=== PATIENT | female | born 1970 | race Caucasian/White ===

== ENCOUNTER → 2017-07-02 22:19 | Outpatient (CLI) | payer MEDICAID, SELFPAY ==
[2017-07-06 06:42] LABS: HPV Reflexed? NOT INDICATED
== END ==
PROVIDERS: Visit Provider Family Medicine
DX: Z01.419 Encounter for gynecological examination (general) (routine) without abnormal findings (principal)
CPT/HCPCS: 88175; G0145

== ENCOUNTER 2017-08-15 08:08 | Observation (INO) | payer MEDICAID, SELFPAY ==
[2017-08-15] VITALS (12 sets, daily range): BP systolic 108–177; BP diastolic 67–111; PULSE 68–96; RESP 12–17; TEMP 36.2–37; O2SAT 95–100; BMI 32.8; BMI 32.4; BMI 32.9
--- NOTE | 2017-08-15 08:20 | RAD_ITS ---
STUDY: X-RAY CHEST REASON FOR EXAM: Female, 47 years old. Chest pain and blurred vision. TECHNIQUE: AP upright portable view. COMPARISON: 04/21/2015. FINDINGS: The lungs are clear and expanded. There is no demonstrated pleural abnormality. Normal size heart. Normal mediastinum and tremayne. Normal visualized pulmonary arteries. Normal visualized aortic arch and descending thoracic aorta. Mild dextroscoliosis of the thoracic spine. Chondroid calcifications in the intramedullary portion of the left proximal humerus are unchanged. This was suggested previously as benign enchondroma. The clavicles, both shoulders and rib cage are within normal limits. There is no demonstrated abnormality of the visualized soft tissue structures of the upper abdomen. RAD/Chest 1 View (Portable) IMPRESSION: 1. Normal x-ray examination of the chest. 2. Probable benign enchondroma in the left proximal humerus. 3. No significant interval changes when compared to 04/21/2015. Electronically Signed: Sid Gómez MD at 8:45 EDT , Service support ,
--- NOTE | 2017-08-15 08:22 | CT_ITS ---
STUDY: CT BRAIN WITHOUT CONTRAST REASON FOR EXAM: Female, 47 years old. Dizziness and blurred vision. RADIATION DOSAGE (If Supplied By Facility): CTDIvol = ( 44.99 ) mGy, DLP = ( 745.49 ) mGycm TECHNIQUE: Transaxial CT imaging of the brain was performed without administration of intravenous contrast material. Coronal and sagittal reconstructions were also performed. Individualized dose optimization techniques were used for this CT. COMPARISON: None. FINDINGS: Normal soft tissue structures. Normal calvarium. Normal size ventricles and extra-axial spaces for the patient's age. Normal white matter tracts of the cerebral hemispheres. Normal basal ganglia and thalami. Normal brainstem. Normal cerebellum. There is no intracranial hemorrhage. There are no findings of an acute ischemic infarction. Normal visualized paranasal sinuses. CT/Brain/Head without Contrast IMPRESSION: Normal unenhanced CT scan of the brain. Electronically Signed: Sid Gómez MD at 9:32 EDT , Service support ,
--- NOTE | 2017-08-15 08:22 | EKG12_ITS ---
Test Reason : CHEST PAIN Blood Pressure : / mmHG Vent. Rate : 087 BPM Atrial Rate : 087 BPM P-R Int : 150 ms QRS Dur : 082 ms QT Int : 368 ms P-R-T Axes : 040 008 015 degrees QTc Int : 442 ms Normal sinus rhythm Normal ECG Confirmed by SPENCER GUTIERRES ([id number]), editor managing director GOPI RUSSO ([id number] on 08/19/2017 4:06:43 PM Referred By: Confirmed By:SPENCER GUTIERRES
[2017-08-15] MEDS: Aspirin 81 MG TAB.CHEW 324 MG PO (08:41)
[2017-08-15] MEDS: 0.9% Normal Saline 1,000 ML 150 ML IV (08:42)
[2017-08-15 08:55] LABS: Absolute Lymphocyte Count 2.39 X10^3/ul (0.83-4.51); Absolute Neutrophil Count 4.4 X10^3/uL (2.0-7.7); Basophil# 0.03 X10^3/uL; Basophil% 0.4 % (0-1); Eosinophil# 0.15 X10^3/uL; Hematocrit 42.4 % (37-47); Hemoglobin 14.3 g/dl (12.0-15.0); Lymphocyte # 2.39 X10^3/ul (4.0); Lymphocyte % 32.2 % (19-41); Mean Corp Hgb Conc 33.7 g/gl (32-36); Mean Corpuscular Hgb 31.5 pg (27.0-32.0); Mean Corpuscular Volume 93.4 fL (81-99); Mean Platelet Vol. 9.4 fl (6.2-12.0); Monocyte% 5.4 % (0-10); Neutrophil # 4.43 X10^3/uL (2.7-7.7); Neutrophil % 59.7 % (47-70); Platelet Count 244 K/mm3 (150-450); RBC Distribution Width CV 12.1 % (11.6-14.6); RBC Distribution Width SD 40.8 fl (35.1-43.9); Red Blood Count 4.54 M/mm3 (4.2-5.4); White Blood Count 7.4 K/mm3 (4.4-11.0)
[2017-08-15 09:08] LABS: POSITIVE COUNT NO; POSITIVE DIFFERENTIAL NO; POSITIVE MORPHOLOGY NO
[2017-08-15 09:16] LABS: Anion Gap 11 (5-15); BUN 13 mg/dL (7-18); BUN/Creat Ratio 16.4 RATIO (10-20); Calcium,Total 9.3 mg/dL (8.5-10.1); Chloride 107 mmol/L (98-107); Creatinine, Serum 0.79 mg/dL (0.55-1.02); EST Glomerular Filtration Rate 82 mL/min (>60); Est Glom Filt Rate - Afr Amer 99 mL/min (>60); Estimated Creatinine Clearance 68.88 ml/min; Glucose 101 mg/dL (74-106); Potassium 3.4 mmol/L (3.5-5.1); Sodium Level 142 mmol/L (136-145)
--- NOTE | 2017-08-15 09:59 | PCM.HP.STD ---
Problem List (1) Chronic neck pain Status: Chronic (2) HLD (hyperlipidemia) Status: Chronic Qualifiers: Hyperlipidemia type: unspecified Qualified Code(s): E78.5 - Hyperlipidemia, unspecified (3) Anxiety and depression Status: Chronic (4) Obesity (BMI 30.0-34.9) Status: Chronic (5) Tobacco use Status: Chronic (6) Chest pain Status: Acute Qualifiers: Chest pain type: unspecified Qualified Code(s): R07.9 - Chest pain, unspecified (7) TIA (transient ischemic attack) Status: Acute Qualifiers: Transient cerebral ischemia type: unspecified Qualified Code(s): G45.9 - Transient cerebral ischemic attack, unspecified History of Present Illness Date of Admission: 08/15/17 Chief Complaint: Chest Pain, Vision Changes, RLE weakness The patient is a 47 y/o F w/ PMHx: Chronic back pain s/p cervical surgery w/ herniated disc, Obesity, Anxiety and Depression, HLD, Tobacco Use who presents to the [facility] ED on 08/15/17 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 In the ED she initially noted mild RLE heaviness but this resolved following admission. She noted not having eaten for several hours with mild headache but otherwise noted feeling improved. She did note with onset of the vision changes she became extremely anxious and is not sure if the symptoms following were possible secondary to her anxiety. In the ED NIH 0. 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 In the emergency room patient administered aspirin 324 mg p.o. ?1. Past Medical History Past Medical History (Chronic Problems): Chronic Problems Chronic neck pain (Chronic) HLD (hyperlipidemia) (Chronic) Anxiety and depression (Chronic) Obesity (BMI 30.0-34.9) (Chronic) Tobacco use (Chronic) Allergies No Known Allergies Allergy (Verified 08/15/17 08:14) Home Medications: Ambulatory Orders Medication Instructions Recorded Sertraline HCl [Zoloft] 50 mg PO DAILY 08/15/17 busPIRone [Buspar] 7.5 mg PO BID 08/15/17 Surgical History: - - Bilateral tubal ligation, tonsillectomy, cervical fusion with hardware. 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 Smoking Status: Current every day smoker Tobacco Use: Cigarettes - One half pack per day tobacco usage. Alcohol: None Drugs: None - *Family History Maternal History Items: - - Patient notes a maternal family history of cancer, unclear type, notes it was rare. Mother also had a history of peptic versus gastric ulcer disease with secondary to hemorrhage. Paternal History Items: - - Father with a history of chronic COPD with tobacco use. Review of Systems Constitutional: Reports: Fatigue. Denies: Chills, Fever, Weight Change HEENT: Denies: Head Aches, Sinus Congestion, Sinus Drainage Cardiovascular: Reports: Chest Pain, Chest Pressure, Light Headedness. Denies: Heaviness, Orthopnea, Palpitations, Syncope Respiratory: Reports: Shortness of Breath. Denies: Cough, Shortness of breath at rest, Sputum production Gastrointestinal: Denies: Abdominal Pain, Nausea, Vomiting Genitourinary: Denies: Dysuria Musculoskeletal: Denies: Joint Pain, Joint Tenderness Skin: Denies: Rash, Wounds Neurological: Reports: Focal weakness, Numbness, Tingling Psychiatric: Reports: Anxiety, Depression. Denies: Homicidal Ideations, Suicidal Ideations Hematologic/ Lymphatic: Denies: Easy Bruising, Easy Bleeding VTE Information - Inpt Only VTE Present on Admission: No VTE Mechan Device Prophylaxis: SCD's VTE Pharm Prophylaxis ordered?: Yes Patient Problems: Active and Suspected Problems Chest pain (Acute) TIA (transient ischemic attack) (Acute) Subjective: Patient seated upright in the bed, no acute distress, notes symptoms continue to remain resolved. Objective: Physical Examination: General: awake, alert, oriented x 3 and cooperative, seated upright in bed in no apparent distress. Skin: normal color, turgor, no icterus, cyanosis. HEENT: AT/NC, EOMI, PERRLA, MMM, no carotid bruits or JVD noted, thyroid appropriate size, no fullness. Lungs: CTA bilaterally, moderate effort, mild decrease BL bases, no rales, ronchi or wheezing. Heart: Regular rate and rhythm; no gallop, rub audible. Abdomen: soft, obese, NTTP, ND, normal BS, no HSM. Extremities: no cyanosis, clubbing, or edema. Neurological: patient awake, alert, oriented x 3; cognitive function intact; pupils equally reactive to light and accomodation; cranial nerves II-XII grossly normal, moving all 4 extremities, no focal deficits, strength preserved, FTN, HTN intact, negative babinski, sensation intact, all thompson of vision intact. Psychiatric: affect appears normal, no acute evidence of depressive or anxiety feelings. - Physical Exam Vital Signs Temp Pulse Resp BP Pulse Ox 97.1 F L 71 17 120/86 H 100 08/15/17 08:09 08/15/17 09:25 08/15/17 09:25 08/15/17 09:25 08/15/17 09:25 Oxygen Flow Rate (L/min) 2 Oxygen Delivery Method Nasal Cannula Weight: 179 lb 14.355 oz Body Mass Index (BMI) 32.8 Laboratory Tests Past 24 Hrs 08/15/17 08/15/17 08:35 08:35 WBC 7.4 RBC 4.54 Hgb 14.3 Hct 42.4 MCV 93.4 MCH 31.5 MCHC 33.7 RDW 12.1 RDW Differential 40.8 Plt Count 244 MPV 9.4 Immature Gran % (Auto) 0.300 Neut % (Auto) 59.7 Lymph % (Auto) 32.2 [place] % (Auto) 5.4 Eos % (Auto) 2.0 Baso % (Auto) 0.4 Absolute Neuts (auto) 4.4 Absolute Lymphs (auto) 2.39 Total Counted Not Reportable Sodium 142 Potassium 3.4 L Chloride 107 Carbon Dioxide 24.0 Anion Gap 11 BUN 13 Creatinine 0.79 Estim Creat Clear Calc 68.88 Est GFR (MDRD) Af Amer 99 Est GFR (MDRD) Non-Af 82 BUN/Creatinine Ratio 16.4 Glucose 101 Calcium 9.3 Troponin I < 0.02 Assessment/Plan Active and Suspected Problems Chest pain (Acute) TIA (transient ischemic attack) (Acute) The patient is a 47 y/o F w/ PMHx: Chronic back pain s/p cervical surgery w/ herniated disc, Obesity, Anxiety and Depression, HLD, Tobacco Use who presents to the [facility] ED on 08/15/17 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 (1) Vision Changes, RLE Weakness, Paresthesias, Resolved secondary to ? TIA: Very atypical presentation, several complaints. ED evaluation unremarkable. Will admit to PCU, will obtain MRI Brain, MRA Head and Neck, ECHO, PT/OT/Speech/Nutrition evaluation per protocol. BP normal upon ED presentation with no HTN Hx, continue to monitor, maintain on asa, add statin w/ AM FLP, fall precautions. TSH, Mag pending. (2) Chest Pain: EKG in ED sinus rhythm with no acute evidence of ischemia, CXR w/ no acute findings, initial trop normal ?1. Will maintain on a monitored bed to assure no acute myocardial infarction with serial cardiac enzymes and EKGs. If MRI/MRA as noted unremarkable and cardiac enzymes remain unremarkable will pursue a.m. echo stress testing. FLP in AM. Mag pending. ASA, NG, morphine. (3) Hypokalemia: Admission K+ 3.4, supplementation given, repeat level in AM. (4) Tobacco Abuse: Encouraged cessation, inpatient consultation per RT, NR if desired. (5) Anxiety and depression: Maintain on home BuSpar and Zoloft regimen. Encourage outpatient psychiatry continued evaluation. (6) Chronic back pain s/p cervical surgery w/ herniated disc: Stable. (7) Obesity: Weight loss and lifestyle changes encouraged. (8) DVT Prophylaxis: SCDs, lovenox. Code Visit OBSV E&M: 16261 Observation care discharge
--- NOTE | 2017-08-15 10:12 | ED.DCSUM_ITS ---
- ER Visit Summary Date of Service: 08/15/17 Chief Complaint: [Chest pain] History of Present Illness: The patient is a 47 F [presents to the emergency department with multiple complaints this morning. 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 Patient became hot and sweaty and became very short of breath. Patient does develop some chest discomfort that she has a hard time describing. Patient states the blurry vision resolved after about 20 minutes. Patient does complain of a little bit of a headache now. Patient does not have a history of migraines. Patient also states that her right leg feels somewhat heavy since all this started. Patient still able to ambulate. Patient denies any speech difficulty. Patient has a history of anxiety, high cholesterol, and she is a smoker.] Physical Examination: [Vital signs-blood pressure 177/111, temperature 97.1, heart rate 95, respirations 15, pulse ox 95% on room air HEENT-PERRLA, EOMI. Cranial nerves II through XII grossly intact. TMs clear. Mucous membranes moist. No adenopathy. Cardiovascular-regular rate and rhythm without murmur or ectopy Lungs-clear to auscultation, chest wall stable without crepitus or subcu emphysema Abdomen-normoactive bowel sounds, soft, nontender, no rebound or rigidity, no peritoneal signs. Neuro [id number] and heel rider testing within normal limits, negative Romberg, negative for drift, fundi benign, NIH stroke scale is 0 Extremities-intact ?4, normal range of motion, normal pulses, atraumatic] Test Results: [EKG obtained on arrival shows sinus rhythm with a ventricular rate of 87 bpm. CBC with differential was normal. Chemistry is unremarkable. Troponin was less than 0.02. Chest x-ray showed nothing acute other than a benign enchondroma of the left humerus. CT scan of the brain without contrast was normal.] Emergency Department Course and Treatment: Patient received aspirin in the emergency department] Treatment Plan: [Admit for further workup and evaluation] Disposition: [Admit] Impression: [Chest pain Right leg weakness Left eye visual changes-resolved] This note was generated with [employer]ummelkiste[employer] software. It may contain incorrect words, spelling, and punctuation that were not noted in review of the chart prior to signing ED Disposition - Plan for ED Patient: Chief Complaint: Chest Pain Referrals: Mateo Jimenez MD [Primary Care Provider] -
--- NOTE | 2017-08-15 10:13 | HP.PCM_ITS ---
Problem List (1) Chronic neck pain Status: Chronic (2) HLD (hyperlipidemia) Status: Chronic Qualifiers: Hyperlipidemia type: unspecified Qualified Code(s): E78.5 - Hyperlipidemia , unspecified (3) Anxiety and depression Status: Chronic (4) Obesity (BMI 30.0-34.9) Status: Chronic (5) Tobacco use Status: Chronic (6) Chest pain Status: Acute Qualifiers: Chest pain type: unspecified Qualified Code(s): R07.9 - Chest pain, unspecified (7) TIA (transient ischemic attack) Status: Acute Qualifiers: Transient cerebral ischemia type: unspecified Qualified Code(s): G45.9 - Transient cerebral ischemic attack, unspecified History of Present Illness Date of Admission: 08/15/17 Chief Complaint: Chest Pain, Vision Changes, RLE weakness The patient is a 47 y/o F w/ PMHx: Chronic back pain s/p cervical surgery w/ herniated disc, Obesity, Anxiety and Depression, HLD, Tobacco Use who presents to the [facility] ED on 08/15/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 In the ED she initially noted mild RLE heaviness but this resolved following admission. She noted not having eaten for several hours with mild headache but otherwise noted feeling improved. She did note with onset of the vision changes she became extremely anxious and is not sure if the symptoms following were possible secondary to her anxiety. In the ED NIH 0. 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 In the emergency room patient administered aspirin 324 mg p.o. ?1. Past Medical History Past Medical History (Chronic Problems): Chronic Problems Chronic neck pain (Chronic) HLD (hyperlipidemia) (Chronic) Anxiety and depression (Chronic) Obesity (BMI 30.0-34.9) (Chronic) Tobacco use (Chronic) Allergies No Known Allergies Allergy (Verified 08/15/17 08:14) Home Medications: Ambulatory Orders Medication Instructions Recorded Sertraline HCl [Zoloft] 50 mg PO DAILY 08/15/17 busPIRone [Buspar] 7.5 mg PO BID 08/15/17 Surgical History: - - Bilateral tubal ligation, tonsillectomy, cervical fusion with hardware. 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 Smoking Status: Current every day smoker Tobacco Use: Cigarettes - One half pack per day tobacco usage. Alcohol: None Drugs: None - *Family History Maternal History Items: - - Patient notes a maternal family history of cancer, unclear type, notes it was rare. Mother also had a history of peptic versus gastric ulcer disease with secondary to hemorrhage. Paternal History Items: - - Father with a history of chronic COPD with tobacco use. Review of Systems Constitutional: Reports: Fatigue. Denies: Chills, Fever, Weight Change HEENT: Denies: Head Aches, Sinus Congestion, Sinus Drainage Cardiovascular: Reports: Chest Pain, Chest Pressure, Light Headedness. Denies: Heaviness, Orthopnea, Palpitations, Syncope Respiratory: Reports: Shortness of Breath. Denies: Cough, Shortness of breath at rest, Sputum production Gastrointestinal: Denies: Abdominal Pain, Nausea, Vomiting Genitourinary: Denies: Dysuria Musculoskeletal: Denies: Joint Pain, Joint Tenderness Skin: Denies: Rash, Wounds Neurological: Reports: Focal weakness, Numbness, Tingling Psychiatric: Reports: Anxiety, Depression. Denies: Homicidal Ideations, Suicidal Ideations Hematologic/ Lymphatic: Denies: Easy Bruising, Easy Bleeding VTE Information - Inpt Only VTE Present on Admission: No VTE Mechan Device Prophylaxis: SCD's VTE Pharm Prophylaxis ordered?: Yes Patient Problems: Active and Suspected Problems Chest pain (Acute) TIA (transient ischemic attack) (Acute) Subjective: Patient seated upright in the bed, no acute distress, notes symptoms continue to remain resolved. Objective: Physical Examination: General: awake, alert, oriented x 3 and cooperative, seated upright in bed in no apparent distress. Skin: normal color, turgor, no icterus, cyanosis. HEENT: AT/NC, EOMI, PERRLA, MMM, no carotid bruits or JVD noted, thyroid appropriate size, no fullness. Lungs: CTA bilaterally, moderate effort, mild decrease BL bases, no rales, ronchi or wheezing. Heart: Regular rate and rhythm; no gallop, rub audible. Abdomen: soft, obese, NTTP, ND, normal BS, no HSM. Extremities: no cyanosis, clubbing, or edema. Neurological: patient awake, alert, oriented x 3; cognitive function intact; pupils equally reactive to light and accomodation; cranial nerves II-XII grossly normal, moving all 4 extremities, no focal deficits, strength preserved , FTN, HTN intact, negative babinski, sensation intact, all thompson of vision intact. Psychiatric: affect appears normal, no acute evidence of depressive or anxiety feelings. - Physical Exam Vital Signs Temp Pulse Resp BP Pulse Ox 97.1 F L 71 17 120/86 H 100 08/15/17 08:09 08/15/17 09:25 08/15/17 09:25 08/15/17 09:25 08/15/17 09:25 Oxygen Flow Rate (L/min) 2 Oxygen Delivery Method Nasal Cannula Weight: 179 lb 14.355 oz Body Mass Index (BMI) 32.8 Laboratory Tests Past 24 Hrs 08/15/17 08/15/17 08:35 08:35 WBC 7.4 RBC 4.54 Hgb 14.3 Hct 42.4 MCV 93.4 MCH 31.5 MCHC 33.7 RDW 12.1 RDW Differential 40.8 Plt Count 244 MPV 9.4 Immature Gran % (Auto) 0.300 Neut % (Auto) 59.7 Lymph % (Auto) 32.2 [place] % (Auto) 5.4 Eos % (Auto) 2.0 Baso % (Auto) 0.4 Absolute Neuts (auto) 4.4 Absolute Lymphs (auto) 2.39 Total Counted Not Reportable Sodium 142 Potassium 3.4 L Chloride 107 Carbon Dioxide 24.0 Anion Gap 11 BUN 13 Creatinine 0.79 Estim Creat Clear Calc 68.88 Est GFR (MDRD) Af Amer 99 Est GFR (MDRD) Non-Af 82 BUN/Creatinine Ratio 16.4 Glucose 101 Calcium 9.3 Troponin I < 0.02 Assessment/Plan Active and Suspected Problems Chest pain (Acute) TIA (transient ischemic attack) (Acute) The patient is a 47 y/o F w/ PMHx: Chronic back pain s/p cervical surgery w/ herniated disc, Obesity, Anxiety and Depression, HLD, Tobacco Use who presents to the [facility] ED on 08/15/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 (1) Vision Changes, RLE Weakness, Paresthesias, Resolved secondary to ? TIA: Very atypical presentation, several complaints. ED evaluation unremarkable. Will admit to PCU, will obtain MRI Brain, MRA Head and Neck, ECHO, PT/OT/Speech/ Nutrition evaluation per protocol. BP normal upon ED presentation with no HTN Hx , continue to monitor, maintain on asa, add statin w/ AM FLP, fall precautions. TSH, Mag pending. (2) Chest Pain: EKG in ED sinus rhythm with no acute evidence of ischemia, CXR w / no acute findings, initial trop normal ?1. Will maintain on a monitored bed to assure no acute myocardial infarction with serial cardiac enzymes and EKGs. If MRI/MRA as noted unremarkable and cardiac enzymes remain unremarkable will pursue a.m. echo stress testing. FLP in AM. Mag pending. ASA, NG, morphine. (3) Hypokalemia: Admission K+ 3.4, supplementation given, repeat level in AM. (4) Tobacco Abuse: Encouraged cessation, inpatient consultation per RT, NR if desired. (5) Anxiety and depression: Maintain on home BuSpar and Zoloft regimen. Encourage outpatient psychiatry continued evaluation. (6) Chronic back pain s/p cervical surgery w/ herniated disc: Stable. (7) Obesity: Weight loss and lifestyle changes encouraged. (8) DVT Prophylaxis: SCDs, lovenox. Code Visit OBSV E&M: 70766 Observation care discharge
--- NOTE | 2017-08-15 12:45 | MRI_ITS ---
STUDY: MRA OF THE HEAD WITHOUT CONTRAST REASON FOR EXAM: Female, 47 years old. Dizziness. TECHNIQUE: 3-D [id number] (TOF) imaging was performed with MIPs. The study was performed unenhanced. COMPARISON: None. FINDINGS: Normal bilateral petrous carotid arteries. Normal right cavernous carotid artery with a normal supraclinoid bifurcation. Normal left cavernous carotid artery with a normal supraclinoid bifurcation. Normal right A1 segments of the anterior cerebral artery. Normal left A1 segments of the anterior cerebral artery. Normal intact anterior communicating artery (ACOM). Normal bilateral A2 segments of the anterior cerebral arteries. Normal right M1 and M2 segments of the middle cerebral arteries, with a normal M1 bifurcation. Normal left M1 and M2 segments of the middle cerebral arteries, with a normal M1 bifurcation. Normal right posterior communicating artery (PCOM). Normal left posterior communicating artery (PCOM). Normal bilateral vertebral arteries. Normal basilar artery with a normal basilar bifurcation. The visualized bilateral superior cerebellar (SCA) arteries are normal. Normal bilateral P1, P2 and visualized P3 segments of the posterior cerebral arteries. There is no demonstrated aneurysm of the ione of Javed. There is no major vessel occlusion or hemodynamically significant stenosis. There is no demonstrated abnormality of the visualized brain. MRI/MRA Head ONLY without Contrast IMPRESSION: Normal MRA of the head Electronically Signed: Feliciano Torres MD at 17:01 EDT , Service support ,
--- NOTE | 2017-08-15 12:45 | MRI_ITS ---
STUDY: MRI BRAIN WITHOUT CONTRAST REASON FOR EXAM: Female, 47 years old. Left-sided blurred vision and dizziness. TECHNIQUE: Standardized multiplanar fat and water weighted pulse sequences were obtained. COMPARISON: None. FINDINGS: No evidence for shift of midline structures, mass effect or compression of the ventricles noted. No acute intra or extra-axial hemorrhage is seen. No abnormal intracranial fluid collections identified. No evidence for cerebellar tonsillar herniation. Pituitary stalk and gland are within normal limits. Optic chiasm are within normal limits. Corpus callosum is within normal limits. No evidence for acute or subacute ischemic insult. No definite evidence for restricted diffusion. Mild mucosal thickening of the ethmoid air cells and the maxillary sinuses. Skull base vascular flow voids are patent. The ventricular system appears unremarkable. Cortical sulci and gyri are within normal limits. Slight asymmetric prominence of the left Meckel's cave noted. Few scattered foci of T2/FLAIR hyperintensity noted in the periventricular and subcortical white matter which are nonspecific in imaging appearance however differential considerations include inflammatory or demyelinating process. Other differential possibilities include migraine-related changes. Postcontrast MR imaging of the brain is suggested. Visualized orbital contents demonstrate no discrete mass. Patient motion artifact somewhat reduces sensitivity of the exam. Extracranial soft tissue structures are essentially within normal limits. IMPRESSION: No evidence for acute or subacute ischemic insult. No evidence for intracranial mass or acute hemorrhage. Few scattered foci of T2/FLAIR hyperintensity noted in the periventricular and subcortical white matter which are nonspecific in imaging appearance however differential considerations include inflammatory or demyelinating process. Other differential possibilities include migraine-related changes. Postcontrast MR imaging of the brain is suggested for further assessment. Electronically Signed: Dewey Dela Cruz, at 21:00 EDT Tel , Service support , MRI/Brain without Contrast
--- NOTE | 2017-08-15 12:45 | MRI_ITS ---
STUDY: MRA NECK WITHOUT CONTRAST REASON FOR EXAM: Female, 47 years old. Blurred vision. Dizziness. TECHNIQUE: Source images were obtained, MIPs were performed. The study was performed unenhanced. COMPARISON: None. FINDINGS: RIGHT CAROTID ARTERIES: Normal right common carotid artery (CCA). Normal right common carotid bulb. Normal origin of the right internal carotid (ICA) artery without a hemodynamically significant stenosis. Normal visualized cervical portion of the right internal carotid artery. Normal origin of the right external carotid artery (ECA). LEFT CAROTID ARTERIES: Normal left common carotid artery (CCA). Normal left common carotid bulb. Normal origin of the left internal carotid (ICA) artery without a hemodynamically significant stenosis. Normal visualized cervical portion of the left internal carotid artery. Normal origin of the left external carotid artery (ECA). VERTEBRAL ARTERIES: Normal antegrade flow within the bilateral vertebral artery without a hemodynamically significant stenosis. MRI/MRA Neck without Contrast IMPRESSION: Normal bilateral cervical carotid and vertebral arteries. Electronically Signed: Feliciano Torres MD at 16:55 EDT , Service support ,
[2017-08-15 13:21] LABS: Magnesium 1.8 mg/dL (1.6-2.6)
[2017-08-15] MEDS: busPIRone 15 MG TABLET 7.5 MG PO (21:43)
[2017-08-15] MEDS: Famotidine 20 MG Tablet PO (21:43)
[2017-08-16] VITALS (8 sets, daily range): BP systolic 110–127; BP diastolic 70–86; PULSE 66–86; RESP 14–16; TEMP 36.3–36.8; O2SAT 94–99
[2017-08-16] MEDS: Aspirin 81 MG TAB.CHEW PO (05:30)
--- NOTE | 2017-08-16 05:55 | EKG12_ITS ---
Test Reason : AM EKG Blood Pressure : / mmHG Vent. Rate : 064 BPM Atrial Rate : 064 BPM P-R Int : 168 ms QRS Dur : 074 ms QT Int : 428 ms P-R-T Axes : 045 039 031 degrees QTc Int : 441 ms Normal sinus rhythm Normal ECG When compared with ECG of 21-APR-2015 12:32, Nonspecific T wave abnormality has replaced inverted T waves in Inferior leads Nonspecific T wave abnormality, improved in Anterior leads Confirmed by LYUDMILA CAMPBELL, MAXIMILIANO ([id number]), restaurant expeditor GOPI RUSSO ([id number]) on 08/22/2017 3:48:47 PM Referred By: SABI Confirmed By:MAXIMILIANO COREAS MD
--- NOTE | 2017-08-16 05:55 | STEWCON_ITS ---
Version 2 Stress Results Maximum Predicted HR: 172 bpm Target HR: 146 bpm % Maximum Predicted HR: 88 % DurationHeart Rate Stage (mm:ss) (bpm) BP I 3:00 13 7 158/62 II 2:50 15 1 168/88 Recovery 2:50 83 152/62 Recovery 4:50 80 124/76 Stress Duration: 13:30 mm:ss Maximum Stress HR: 151 bpm Baseline Echocardiogram Findings The estimated ejection fraction is 65 %. Stress Echo Wall motion Data Resting WMIntermediate WMStress WM Resting Wall Motion Wall Motion Stress No regional wall motion No regional wall motion abnormalities noted. abnormalities noted. EKG Data Normal intervals are noted. The patient exercised according to the regular Júnior protocol for a total duration of 6:26. The maximum heart rate attained was 157 beats per minute. This was 91% of maximum predicted heart rate. The patient exercised into stage 3 of the Júnior protocol. During stress, there were no ST or T wave changes noted to suggest ischemia. Interpretation Summary The estimated ejection fraction is 65 %. Normal adequate treadmill echocardiogram. Negative for ischemia by EKG and echocardiographic criteria. No anginal symptoms noted. No arrhythmias noted. Appropriate blood pressure response to exercise. Average exercise capacity for age. Test terminated due to leg discomfort. Decreased sensitivity due to poor echo windows requiring Definity enhancement. No complications. Final LVEF=75%. Ordering Physician: Ivy Pratt Eeferring Physician: Mateo Jimenez
[2017-08-16 06:13] LABS: Hematocrit 39.3 % (37-47); Hemoglobin 13.1 g/dl (12.0-15.0); Mean Corp Hgb Conc 33.3 g/gl (32-36); Mean Corpuscular Hgb 31.5 pg (27.0-32.0); Mean Corpuscular Volume 94.5 fL (81-99); Mean Platelet Vol. 9.7 fl (6.2-12.0); Platelet Count 217 K/mm3 (150-450); RBC Distribution Width SD 40.9 fl (35.1-43.9); Red Blood Count 4.16 M/mm3 (4.2-5.4); White Blood Count 7.8 K/mm3 (4.4-11.0)
[2017-08-16 06:14] LABS: Scan Indicated on CBC? Y/N NO
[2017-08-16 06:19] LABS: International Normalized Ratio 0.9; Prothrombin Time (Protime)PT. 12.2 SECONDS (11.7-14.9)
[2017-08-16 06:20] LABS: Partial Thromboplast Time 30.2 Seconds (24.1-36.2)
[2017-08-16 06:27] LABS: Anion Gap 8 (5-15); BUN 14 mg/dL (7-18); BUN/Creat Ratio 21.1 RATIO (10-20); Calcium,Total 8.8 mg/dL (8.5-10.1); Chloride 109 mmol/L (98-107); Cholesterol 243 mg/dL (200); Creatinine, Serum 0.66 mg/dL (0.55-1.02); EST Glomerular Filtration Rate 101 mL/min (>60); Est Glom Filt Rate - Afr Amer 122 mL/min (>60); Estimated Creatinine Clearance 82.45 ml/min; Glucose 90 mg/dL (74-106); High Density Lipoprotein 47 mg/dL; Potassium 4.1 mmol/L (3.5-5.1); Sodium Level 142 mmol/L (136-145); Triglycerides 229 mg/dL; Very Low Density Lipoprotein 46 mg/dL (5-40)
[2017-08-16] MEDS: Atorvastatin Calcium 80 MG Tablet PO (10:17)
[2017-08-16] MEDS: busPIRone 15 MG TABLET 7.5 MG PO (10:17)
[2017-08-16] MEDS: Sertraline 50 MG Tablet PO (10:18)
[2017-08-16] MEDS: Famotidine 20 MG Tablet PO (10:18)
--- NOTE | 2017-08-16 11:58 | PCM.DC ---
- Discharge Diagnoses Current Active Problems: Current Active and Chronic Problems (1) Vision Changes, RLE Weakness/Paresthesias, Resolved secondary to Possible TIA (2) Non-specific MRI Brain scattered foci hyperintensity in the periventricular and subcortical white matter, Unclear Specific Etiology (follow-up MRI Brain w/ Contrast without enhancement) (3) Chest Pain, Non-cardiac, Unclear Specific Etiology, Possibly Anxiety associated (4) Hypokalemia (5) Tobacco Abuse (6) Anxiety and depression (7) Chronic back pain s/p cervical surgery w/ herniated disc: Stable. (8) Obesity You will use the following diet at home:: Cardiac Your food should be the consistency of: Regular Your liquids should be the consistency of: Regular/Thin Discharge Activity: Return to Normal Activity May resume sexual activity in: No Restrictions Weight Bearing Status: Weight bearing as tolerated Call your doctor if you observe: Fever of 101 or Higher, Inability to urinate, Inability to have a bowel movement, Shortness of breath, Dizziness, Fainting spells, Chest pain, Uncontrolled pain, - - Any recurrent neurological symptoms or vision changes please contact Dr. Mccurdy office or return to the ED. Instructions: What Is a TIA?, Discharge Instructions for Transient Ischemic Attack (TIA), Cholesterol Medications, Low-Fat Cooking Tips Additional Instructions: Please continue to take daily baby aspirin therapy and the cholesterol statin medication. You will follow-up with Neurology following discharge given concern for possible transient ischemic attack and noted changes on MRI of the brain (NOT STROKE). Neurology may want to perform additional studies and/or testing which may include evaluating a sample of your cerebrospinal fluid which is obtained with a lumbar puncture, but again this plan and potentional work-up will be decided at your follow-up in their office. Allergies/Adverse Reactions: Allergies No Known Allergies Allergy (Verified 08/15/17 08:14) Medications to take at Discharge Sertraline HCl [Zoloft] 50 mg PO DAILY 08/15/17 busPIRone [Buspar] 7.5 mg PO BID 08/15/17 Aspirin [Aspirin, Baby] 81 mg PO DAILY@0800 #30 tab.chew 08/16/17 Atorvastatin Calcium [Lipitor] 40 mg PO QHS #30 tab 08/16/17 Famotidine [Pepcid] 20 mg PO BID #60 tab 08/16/17 The following prescriptions were given: Aspirin [Aspirin, Baby] 81 mg PO DAILY@0800 #30 tab.chew Atorvastatin Calcium [Lipitor] 40 mg PO QHS #30 tab Famotidine [Pepcid] 20 mg PO BID #60 tab Primary Care Physician: Mateo Jimenez MD [Primary Care Provider] - Please follow up with your Primary Care Physician in: Follow-up within 3-5 days to review admission. Please Follow Up With: Jefe Mccurdy MD When: Follow-up within 1-2 weeks, may see AUTO BENCH MECHANIC to discuss further evaluation. Proposed Discharge Date: 08/16/17
--- NOTE | 2017-08-16 12:57 | MRI_ITS ---
STUDY: MRI BRAIN WITH CONTRAST REASON FOR EXAM: Female, 47 years old. CVA. Follow-up MRI TECHNIQUE: Standardized multiplanar fat and water weighted pulse sequences were obtained. 8 ml of Gadavist contrast material was administered intravenously for the contrast portion of the examination. COMPARISON: August 15, 2017 MRI examination brain FINDINGS: Previously noted scattered foci of T2/FLAIR hyperintensity in the periventricular and subcortical white matter demonstrate no significant associated enhancement. Differential considerations remain the same with inflammatory or demyelinating process, vasculitides or accelerated chronic small vessel disease. Small developmental venous anomaly in the right frontal lobe No discrete mass within the orbits. Skull base vascular flow voids are patent. No shift of midline structures or mass effect. Mild mucosal thickening of the ethmoid air cells. IMPRESSION: Redemonstration of scattered foci of T2/FLAIR hyperintensity in the periventricular and subcortical white matter which demonstrate no associated enhancement or restricted diffusion. Differential considerations include inflammatory or demyelinating process, migraine related changes or accelerated chronic small vessel disease. Electronically Signed: Dewey Dela Cruz, at 14:28 EDT Tel , Service support , MRI/Brain WITH Contrast
--- NOTE | 2017-08-16 14:31 | PCM.DC.SUM ---
Discharge Date and Diagnosis - Problem List Patient Problems: Active and Suspected Problems Chest pain (Acute) TIA (transient ischemic attack) (Acute) Date of Admission: 08/15/17 Date of Discharge: 08/16/17 - Primary Discharge Diagnosis Active and Suspected Problems (1) Vision Changes, RLE Weakness/Paresthesias, Resolved secondary to Possible TIA (2) Non-specific MRI Brain scattered foci hyperintensity in the periventricular and subcortical white matter, Unclear Specific Etiology (follow-up MRI Brain w/ Contrast without enhancement) (3) Chest Pain, Non-cardiac, Unclear Specific Etiology, Possibly Anxiety associated (4) Hypokalemia (5) Tobacco Abuse (6) Anxiety and depression (7) Chronic back pain s/p cervical surgery w/ herniated disc: Stable. (8) Obesity - Secondary Discharge Diagnosis Chronic Problems Chronic neck pain (Chronic) HLD (hyperlipidemia) (Chronic) Anxiety and depression (Chronic) Obesity (BMI 30.0-34.9) (Chronic) Tobacco use (Chronic) Hospital Course and Treatment Imaging Results: 08/16/17 05:55 Stress Test Echo W/Contrast [ECHO] AM (NON MEDS) 08/16/17 12:57 MRI Brain [Brain WITH Contrast] [MRI] Urgent Reviewed presentation history, work-up including MRI Brain with Neurology, they personally reviewed imaging studies and requested MRI Brain with IV contrast which was obtained and upon their review did not see any concerning enhancement thus per discussion with Dr. Mccurdy, patient discharged to home in stable improved condition with follow-up in their office. Operations: None Procedures: 2-D Echocardiogram, EKG, Stress test Summary of Care Provided: The patient is a 47 y/o F w/ PMHx: Chronic back pain s/p cervical surgery w/ herniated disc, Obesity, Anxiety and Depression, HLD, Tobacco Use who presented to the [facility] ED on 08/15/17 with history while at work ~ 1 hour [employer] onset L eye lateral vision changes, primarily blurry vision with onset substernal chest dull ache w/ concurrent mild dyspnea, diaphoresis, lightheadedness as well as vague RLE weakness and heaviness sensation with resolution of her vision changes after ~ 20 minutes and resolution of her chest discomfort upon ED presentation. In the ED she initially noted mild RLE heaviness but this resolved following admission. She noted not having eaten for several hours with mild headache but otherwise noted feeling improved. She did note with onset of the vision changes she became extremely anxious and is not sure if the symptoms following were possible secondary to her anxiety. In the ED NIH 0. 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 In the emergency room patient administered aspirin 324 mg p.o. ?1. The patient was admitted to the PCU, MRA Head and Neck unremarkable, MRI Brain obtained w/ noted no evidence of acute or subacute infarct or insult however noted few scattered foci of T2 FLAIR hyperintensity in the periventricular and subcortical white matter which were nonspecific, ECHO w/ EF 65%, normal diastole, trivial MV insufficiency, trivial TV insufficiency, RVSP 25 mmHg, therapies per protocol, maintained on asa, FLP obtained and patient placed on statin therapy. Discussed MRI findings with neurology and given possible consideration with history some concern for multiple sclerosis therefore MRI brain with IV contrast obtained per their recommendation and unremarkable for enhancement in these regions therefore plan to discharge to home with follow-up with neurology in the office and further evaluation at that time with possible LP. Patient also given atypical chest pain complaint maintained as noted on telemetry without marked event with unremarkable serial cardiac enzymes and unchanged EKG with unremarkable 08/16/17 stress testing with continuation as already noted on asa, statin addition w/ FLP and normal mag level. Encouraged tobacco cessation. Additional, patient maintained on home BuSpar and Zoloft regimen with encouraged outpatient therapy and continued evaluation. Patient discharged to home in stable condition with follow-up with her PCP within 3-5 days and Neurology within 1-2 weeks to further evaluate non-specific MRI changes and possible TIA. DAY OF DISCHARGE PROGRESS NOTE: Subjective: Patient without acute event overnight per self and nursing report. Patient remains at neurological baseline with no further vision changes or extremity paresthesias or weakness. Patient denies fever, chills, nausea, emesis, abdominal pain, chest pain or dyspnea. Patient agreeable to discharge to home following unremarkable stress testing and MRI without evidence of acute stroke with unspecific white matter foci findings with planned continued evaluation per Neurology. Patient will be discharged with follow-up with primary care physician within 3-5 days in addition to Neurology within 1-2 weeks. Objective: T 98.3, heart rate 78, BP 122/86, respiratory rate 16, 97% on room air. Physical Examination: General: awake, alert, oriented x 3 and cooperative, seated upright in the bed, NAD. Skin: normal color, turgor, no icterus, cyanosis. HEENT: AT/NC, EOMI, PERRLA, MMM. Lungs: CTA bilaterally, moderate effort, mild decrease BL bases, no rales, ronchi or wheezing; Heart: Regular rate and rhythm; no gallop, rub audible. Abdomen: soft, obese, NTTP, ND, normal BS. Extremities: no cyanosis, clubbing, or edema. Neurological: patient awake, alert, oriented x 3; cognitive function appears intact upon questioning,; pupils equally reactive to light and accomodation; cranial nerves II-XII grossly normal, moving all 4 extremities, strength appropriate. Psychiatric: affect appears normal, no acute evidence of depressive or anxiety feelings. Assessment and Plan: Please see hospital summary above. Discharge Activity: Return to Normal Activity May resume sexual activity in: No Restrictions Weight Bearing Status: Weight bearing as tolerated Call your doctor if you observe: Fever of 101 or Higher, Inability to urinate, Inability to have a bowel movement, Shortness of breath, Dizziness, Fainting spells, Chest pain, Uncontrolled pain, - - Any recurrent neurological symptoms or vision changes please contact Dr. Mccurdy office or return to the ED. Home Medications: Medications to take at Discharge Sertraline HCl [Zoloft] 50 mg PO DAILY 08/15/17 busPIRone [Buspar] 7.5 mg PO BID 08/15/17 Aspirin [Aspirin, Baby] 81 mg PO DAILY@0800 #30 tab.chew 08/16/17 Atorvastatin Calcium [Lipitor] 40 mg PO QHS #30 tab 08/16/17 Famotidine [Pepcid] 20 mg PO BID #60 tab 08/16/17 Following Prescrptions Were Given to Patient: Aspirin [Aspirin, Baby] 81 mg PO DAILY@0800 #30 tab.chew Atorvastatin Calcium [Lipitor] 40 mg PO QHS #30 tab Famotidine [Pepcid] 20 mg PO BID #60 tab Primary Care Physician: Mateo Jimenez MD [Primary Care Provider] - Please follow up with your Primary Care Physician in: Follow-up within 3-5 days to review admission. Please Follow Up With: Jefe Mccurdy MD When: Follow-up within 1-2 weeks, may see TRIMMING INSPECTOR to discuss further evaluation. Patient Instructions: Cholesterol Medications, Low-Fat Cooking Tips, What Is a TIA?, Discharge Instructions for Transient Ischemic Attack (TIA) Disposition: Home Minutes spent on discharge:: 20 Patient Condition:: Fair Medical Necessity - Tobacco Use Smoking Status: Current every day smoker Tobacco Use: Cigarettes Meaningful Use Info Meaningful Use Diagnoses (Choose all that apply): None applicable Code Visit OBSV E&M: 94768 Observation care discharge
--- NOTE | 2017-08-16 14:41 | DS.PCM_ITS ---
Discharge Date and Diagnosis - Problem List Patient Problems: Active and Suspected Problems Chest pain (Acute) TIA (transient ischemic attack) (Acute) Date of Admission: 08/15/17 Date of Discharge: 08/16/17 - Primary Discharge Diagnosis Active and Suspected Problems (1) Vision Changes, RLE Weakness/Paresthesias, Resolved secondary to Possible TIA (2) Non-specific MRI Brain scattered foci hyperintensity in the periventricular and subcortical white matter, Unclear Specific Etiology (follow-up MRI Brain w/ Contrast without enhancement) (3) Chest Pain, Non-cardiac, Unclear Specific Etiology, Possibly Anxiety associated (4) Hypokalemia (5) Tobacco Abuse (6) Anxiety and depression (7) Chronic back pain s/p cervical surgery w/ herniated disc: Stable. (8) Obesity - Secondary Discharge Diagnosis Chronic Problems Chronic neck pain (Chronic) HLD (hyperlipidemia) (Chronic) Anxiety and depression (Chronic) Obesity (BMI 30.0-34.9) (Chronic) Tobacco use (Chronic) Hospital Course and Treatment Imaging Results: 08/16/17 05:55 Stress Test Echo W/Contrast [ECHO] AM (NON MEDS) 08/16/17 12:57 MRI Brain [Brain WITH Contrast] [MRI] Urgent Reviewed presentation history, work-up including MRI Brain with Neurology, they personally reviewed imaging studies and requested MRI Brain with IV contrast which was obtained and upon their review did not see any concerning enhancement thus per discussion with Dr. Mccurdy, patient discharged to home in stable improved condition with follow-up in their office. Operations: None Procedures: 2-D Echocardiogram, EKG, Stress test Summary of Care Provided: The patient is a 47 y/o F w/ PMHx: Chronic back pain s/p cervical surgery w/ herniated disc, Obesity, Anxiety and Depression, HLD, Tobacco Use who presented to the [facility] ED on 08/15/17 with history while at work ~ 1 hour [employer] onset L eye lateral vision changes, primarily blurry vision with onset substernal chest dull ache w/ concurrent mild dyspnea, diaphoresis, lightheadedness as well as vague RLE weakness and heaviness sensation with resolution of her vision changes after ~ 20 minutes and resolution of her chest discomfort upon ED presentation. In the ED she initially noted mild RLE heaviness but this resolved following admission. She noted not having eaten for several hours with mild headache but otherwise noted feeling improved. She did note with onset of the vision changes she became extremely anxious and is not sure if the symptoms following were possible secondary to her anxiety. In the ED NIH 0. 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 In the emergency room patient administered aspirin 324 mg p.o. ?1. The patient was admitted to the PCU, MRA Head and Neck unremarkable , MRI Brain obtained w/ noted no evidence of acute or subacute infarct or insult however noted few scattered foci of T2 FLAIR hyperintensity in the periventricular and subcortical white matter which were nonspecific, ECHO w/ EF 65%, normal diastole, trivial MV insufficiency, trivial TV insufficiency, RVSP 25 mmHg, therapies per protocol, maintained on asa, FLP obtained and patient placed on statin therapy. Discussed MRI findings with neurology and given possible consideration with history some concern for multiple sclerosis therefore MRI brain with IV contrast obtained per their recommendation and unremarkable for enhancement in these regions therefore plan to discharge to home with follow-up with neurology in the office and further evaluation at that time with possible LP. Patient also given atypical chest pain complaint maintained as noted on telemetry without marked event with unremarkable serial cardiac enzymes and unchanged EKG with unremarkable 08/16/17 stress testing with continuation as already noted on asa, statin addition w/ FLP and normal mag level. Encouraged tobacco cessation. Additional, patient maintained on home BuSpar and Zoloft regimen with encouraged outpatient therapy and continued evaluation. Patient discharged to home in stable condition with follow-up with her PCP within 3-5 days and Neurology within 1-2 weeks to further evaluate non- specific MRI changes and possible TIA. DAY OF DISCHARGE PROGRESS NOTE: Subjective: Patient without acute event overnight per self and nursing report. Patient remains at neurological baseline with no further vision changes or extremity paresthesias or weakness. Patient denies fever, chills, nausea, emesis , abdominal pain, chest pain or dyspnea. Patient agreeable to discharge to home following unremarkable stress testing and MRI without evidence of acute stroke with unspecific white matter foci findings with planned continued evaluation per Neurology. Patient will be discharged with follow-up with primary care physician within 3-5 days in addition to Neurology within 1-2 weeks. Objective: T 98.3, heart rate 78, BP 122/86, respiratory rate 16, 97% on room air. Physical Examination: General: awake, alert, oriented x 3 and cooperative, seated upright in the bed, NAD. Skin: normal color, turgor, no icterus, cyanosis. HEENT: AT/NC, EOMI, PERRLA, MMM. Lungs: CTA bilaterally, moderate effort, mild decrease BL bases, no rales, ronchi or wheezing; Heart: Regular rate and rhythm; no gallop, rub audible. Abdomen: soft, obese, NTTP, ND, normal BS. Extremities: no cyanosis, clubbing, or edema. Neurological: patient awake, alert, oriented x 3; cognitive function appears intact upon questioning,; pupils equally reactive to light and accomodation; cranial nerves II-XII grossly normal, moving all 4 extremities, strength appropriate. Psychiatric: affect appears normal, no acute evidence of depressive or anxiety feelings. Assessment and Plan: Please see hospital summary above. Discharge Activity: Return to Normal Activity May resume sexual activity in: No Restrictions Weight Bearing Status: Weight bearing as tolerated Call your doctor if you observe: Fever of 101 or Higher, Inability to urinate, Inability to have a bowel movement, Shortness of breath, Dizziness, Fainting spells, Chest pain, Uncontrolled pain, - - Any recurrent neurological symptoms or vision changes please contact Dr. Mccurdy office or return to the ED. Home Medications: Medications to take at Discharge Sertraline HCl [Zoloft] 50 mg PO DAILY 08/15/17 busPIRone [Buspar] 7.5 mg PO BID 08/15/17 Aspirin [Aspirin, Baby] 81 mg PO DAILY@0800 #30 tab.chew 08/16/17 Atorvastatin Calcium [Lipitor] 40 mg PO QHS #30 tab 08/16/17 Famotidine [Pepcid] 20 mg PO BID #60 tab 08/16/17 Following Prescrptions Were Given to Patient: Aspirin [Aspirin, Baby] 81 mg PO DAILY@0800 #30 tab.chew Atorvastatin Calcium [Lipitor] 40 mg PO QHS #30 tab Famotidine [Pepcid] 20 mg PO BID #60 tab Primary Care Physician: Mateo Jimenez MD [Primary Care Provider] - Please follow up with your Primary Care Physician in: Follow-up within 3-5 days to review admission. Please Follow Up With: Jefe Mccurdy MD When: Follow-up within 1-2 weeks, may see [employer]ER to discuss further evaluation. Patient Instructions: Cholesterol Medications, Low-Fat Cooking Tips, What Is a TIA?, Discharge Instructions for Transient Ischemic Attack (TIA) Disposition: Home Minutes spent on discharge:: 20 Patient Condition:: Fair Medical Necessity - Tobacco Use Smoking Status: Current every day smoker Tobacco Use: Cigarettes Meaningful Use Info Meaningful Use Diagnoses (Choose all that apply): None applicable Code Visit OBSV E&M: 71009 Observation care discharge
== END 2017-08-16 11:58 | disposition home or self-care (01) ==
LOC: ED 08:43 → PCU 10:51
PROVIDERS: Admitting Provider Family Medicine; Emergency Provider Emergency Medicine; Family Provider Family Medicine; PCP Family Medicine; Visit Provider Family Medicine
DX: R07.89 Other chest pain (principal); G45.9 Transient cerebral ischemic attack, unspecified; E87.6 Hypokalemia; H53.8 Other visual disturbances; F41.9 Anxiety disorder, unspecified; Z79.899 Other long term (current) drug therapy; R53.1 Weakness; E78.5 Hyperlipidemia, unspecified; F32.9 Major depressive disorder, single episode, unspecified; E66.9 Obesity, unspecified; Z68.32 Body mass index [BMI] 32.0-32.9, adult; Z71.3 Dietary counseling and surveillance; F17.210 Nicotine dependence, cigarettes, uncomplicated
CPT/HCPCS: 36415; 70450; 70544; 70547; 70551; 70552; 71045; 80048; 80061; 83735; 84443; 84484; 85025; 85027; 85610; 85730; 92507; 93005; 93017; 93306; 93350; 96360; 96361; 97110; 97161; 97802; 99218; 99283; 99406; A9585; J7030; Q9957; A4216; C8928; G0378

== ENCOUNTER → 2017-08-26 16:06 | Outpatient (CLI) | payer MEDICAID, SELFPAY ==
[2017-08-26 16:46] LABS: Absolute Lymphocyte Count 2.47 X10^3/ul (0.83-4.51); Absolute Neutrophil Count 6.4 X10^3/uL (2.0-7.7); Basophil# 0.02 X10^3/uL; Basophil% 0.2 % (0-1); Eosinophil# 0.14 X10^3/uL; Eosinophils% 1.5 % (0-5); Hematocrit 38.3 % (37-47); Lymphocyte # 2.47 X10^3/ul (4.0); Lymphocyte % 25.8 % (19-41); Mean Corp Hgb Conc 33.9 g/gl (32-36); Mean Corpuscular Hgb 31.9 pg (27.0-32.0); Mean Corpuscular Volume 94.1 fL (81-99); Mean Platelet Vol. 9.7 fl (6.2-12.0); Monocyte# 0.53 X10^3/uL; Monocyte% 5.5 % (0-10); Neutrophil # 6.38 X10^3/uL (2.7-7.7); Neutrophil % 66.8 % (47-70); Platelet Count 279 K/mm3 (150-450); RBC Distribution Width CV 12.2 % (11.6-14.6); RBC Distribution Width SD 41.1 fl (35.1-43.9); RET-HE 38.1 pg (30-35); Red Blood Count 4.07 M/mm3 (4.2-5.4); Reticulocyte Count 1.22 % (0.5-1.5); White Blood Count 9.6 K/mm3 (4.4-11.0)
[2017-08-26 16:49] LABS: POSITIVE COUNT NO; POSITIVE DIFFERENTIAL NO; POSITIVE MORPHOLOGY NO
[2017-08-26 16:59] LABS: Erythrocyte Sedimentation Rate 7 mm/hr (0-20); Immature Platelet Fraction 0.9 % (1.0-7.9)
[2017-08-26 17:38] LABS: ALB/GLOB Ratio 1.2 RATIO (0.9-2.4); AST(SGOT) 25 U/L (15-37); Alanine Aminotransfer ALT/SGPT 32 U/L (13-56); Alkaline Phosphatase 57 U/L (45-117); Anion Gap 10 (5-15); BUN 12 mg/dL (7-18); BUN/Creat Ratio 19.5 RATIO (10-20); Calcium,Total 8.9 mg/dL (8.5-10.1); Chloride 107 mmol/L (98-107); Creatinine, Serum 0.62 mg/dL (0.55-1.02); EST Glomerular Filtration Rate 110 mL/min (>60); Est Glom Filt Rate - Afr Amer 133 mL/min (>60); Free T3 2.6 pg/mL (2.18-3.98); Globulin 3.2 g/dL (2.2-4.2); Glucose 95 mg/dL (74-106); Magnesium 1.9 mg/dL (1.6-2.6); Phosphorus 3.6 mg/dL (2.5-4.9); Potassium 3.7 mmol/L (3.5-5.1); Protein, Total 7.2 g/dL (6.4-8.2); Sodium Level 141 mmol/L (136-145); T4 Free Direct 0.88 ng/dL (0.76-1.46); Thyroid Stim Hormone (TSH) 1.74 uIU/mL (0.358-3.74)
[2017-08-27 08:44] LABS: Vitamin B12 249 pg/mL (211-911); Vitamin D,25 Hydroxy 16.1 ng/mL (29.95-100.01)
[2017-08-29 01:13] LABS: Rapid Plasmin Reagin (RPR) NONREACTIVE (NONREACTIVE)
== END ==
PROVIDERS: Family Provider Family Medicine; PCP Family Medicine; Visit Provider Nurse Practitioner Acute Care
DX: G35 Multiple sclerosis (principal); Z86.73 Personal history of transient ischemic attack (TIA), and cerebral infarction without residual deficits
CPT/HCPCS: 80053; 82306; 82607; 82746; 83735; 84100; 84439; 84443; 84481; 85025; 85045; 85652; 86592

== ENCOUNTER → 2017-09-10 08:30 | Outpatient (CLI) | payer MEDICAID, SELFPAY ==
[2017-09-10 08:56] LABS: Platelet Count 226 K/mm3 (150-450)
[2017-09-10 09:14] VITALS: BP 142/88; PULSE 76; RESP 16; TEMP 37.2; O2SAT 97; BMI 31.0
[2017-09-10 09:20] LABS: International Normalized Ratio 0.9; Prothrombin Time (Protime)PT. 12.6 SECONDS (11.7-14.9)
[2017-09-10 09:21] LABS: Partial Thromboplast Time 29.6 Seconds (24.1-36.2)
--- NOTE | 2017-09-10 09:25 | RAD_ITS ---
PROCEDURE: Fluoroscopic guided Lumbar Puncture. DATE: PROCEDURE: Fluoroscopic guided Lumbar Puncture. DATE: September 10, 2017 CLINICAL INDICATION: Possible multiple sclerosis. PHYSICIAN: Sudhakar Matthews M.D. MEDICATIONS: 1% lidocaine administered subcutaneously for local anesthesia. ACCESS SITE: Lower posterior back. NEEDLE: 22-gauge spinal needle. SPECIMEN: Approximately 12 mL clear]CSF fluid. FLUOROSCOPY TIME (if supplied): (0:55) minutes/seconds COMPLICATIONS: None immediate. The risks, benefits, and alternatives to the procedure were explained to the patient. The specific risks of bleeding, infection, and neurovascular injury were detailed and accepted. Witnessed informed consent was obtained. The patient was placed on the fluoroscopic table in the prone position. The level for needle entry was determined and marked. The overlying skin was cleaned and prepped in the usual sterile fashion. 2% lidocaine was administered subcutaneously for local anesthesia. Under fluoroscopic guidance a 22-gauge spinal needle was advanced. The thecal sac was entered at the L3- L4 vertebral level. The inner stylet was removed. There was spontaneous flow of clear CSF fluid. The patient was placed in a reversed Trendelenburg position. Approximately 12 mL of cerebrospinal fluid was collected using gravity. The specimen was collected and submitted to the laboratory for further evaluation. The needle was withdrawn,. Hemostasis was achieved and a sterile dressing placed. The patient tolerated the procedure well without any immediate complications. The patient was placed supine with head elevated and returned to the floor in stable condition. RAD/Fluoro Guided Lumbar Puncture IMPRESSION: Successful fluoroscopic-guided lumbar puncture. . Electronically Signed: Sudhakar aMtthews MD at 10:39 EDT Tel [phone], Service support ,
--- NOTE | 2017-09-10 09:48 | CYSPIN_PTH ---
PATIENT: RICCI GARCIA LOC: [facility] U#:[id number] AGE/SX: 55/F ROOM: RE09/10/[address]: DEBORAH Gardner : 1970 BED: DIS: SPEC #: [id number] RECD: 09/10/17 11:33 STATUS: BOB DOROTHY #: [id number] KENDRICK: 09/10/17 09:[address]: Grisel Ureña NP DEPT: CYTOLOGY RECD BY: Josue Ramos ENTERED: 09/10/17 11:33 SP TYPE: CYSPIN FL OTHR DR: Dr. Mateo Jimenez MD Tissues: Cerebrospinal Fluid Procedures: Pap Stain (control) Special Stain Group II Cytospin Fluid HEADER OPERATION: Lumbar puncture PRE-OP DIAGNOSIS: Possible multiple sclerosis TISSUE SUBMITTED: Cerebrospinal fluid for cytology DIAGNOSIS CYTOLOGY Cerebrospinal fluid for cytology (cytospin): Acellular specimen. SJ:bea 09/11/17 CYTOLOGY STUDY Slides are reviewed. CYTOLOGY GROSS Received is 1 ml of clear, colorless fluid labeled with the patient's name and and designated per the requisition as CSF. Submitted for cytology preparation. 09/10/17 TC:4 CPT: 48796
[2017-09-10 09:58] VITALS: BP 123/80; PULSE 65; RESP 16; O2SAT 98
[2017-09-10 10:11] LABS: Cytology, Body Fluid / CSF SEE PATHOLOGY REPORT; Oligoclonal Banding REF LAB
[2017-09-10 10:27] LABS: Body Fluid Mononuclear WBC # 0.002 10^3/uL; Total Cell Count CSF 0.002 10^3/uL (0.000-0.000); White Count, CSF 0.002 10^3/uL (0.000-0.000)
[2017-09-10 10:31] LABS: Auto B Fluid Analyzer BKGD Ct COUNTS W/IN LIMITS (W/IN LIMITS); Tested Tube # 4
[2017-09-10 10:32] LABS: Appearance CSF (character) CLEAR (Clear); CSF Color COLORLESS (Colorless)
[2017-09-10 10:33] LABS: Body Fluid QC Type(s) BF1Q; RBC Count, Spinal Fluid 0 /mm-3 (None seen)
[2017-09-10 10:42] LABS: Glucose Spinal Fluid 52 mg/dL (40-75)
[2017-09-10 10:57] VITALS: BP 135/87; PULSE 67; RESP 16; O2SAT 97
--- NOTE | 2017-09-10 10:59 | NURSING ---
DISCHARGE TEACHING REVIEWED. PT UNDERSTANDS INSTRUCTIONS. AMBULATED TO ELEVATORS. NOTIFIED THAT SHE WILL BE CALLED TOMORROW TO SEE HOW SHE'S FEELING.
[2017-09-10 17:16] LABS: Xtra Tube EP Lab EXTRA TUBE
[2017-09-11 13:13] LABS: Pathologist Review Reviewed
[2017-09-11 16:09] LABS: PROEL- A/G Ratio 1.5 (0.7-1.7); PROEL- Alpha-1 Globulin 0.3 g/dL (0.0-0.4); PROEL- Alpha-2 Globulin 0.8 g/dL (0.4-1.0); PROEL- Beta Globulin 1.1 g/dL (0.7-1.3); PROEL- Gamma Globulin 0.5 g/dL (0.4-1.8); PROEL- Globulin, Total 2.7 g/dL (2.2-3.9); PROEL- TOTAL PROTEIN 6.7 g/dL (6.0-8.5)
[2017-09-18 16:09] LABS: CSF Albumin 30 mg/dL (11-48); CSF IgG 1.9 mg/dL (0.0-8.6); CSF IgG Index 0.5 (0.0-0.7); Cryptococcus Antigen CSF Negative (Negative); IgG Serum 519 mg/dL (700-1600); IgG/Alb Ratio, CSF 0.06 (0.00-0.25); PROEL- A/G Ratio 1.4 (0.7-1.7); PROEL- Albumin 3.8 g/dL (2.9-4.4); PROEL- Alpha-1 Globulin 0.3 g/dL (0.0-0.4); PROEL- Alpha-2 Globulin 0.8 g/dL (0.4-1.0); PROEL- Beta Globulin 1.1 g/dL (0.7-1.3); PROEL- Gamma Globulin 0.6 g/dL (0.4-1.8); PROEL- Globulin, Total 2.8 g/dL (2.2-3.9); PROEL- TOTAL PROTEIN 6.6 g/dL (6.0-8.5); Serum Albumin 4.5 g/dL (3.5-5.5)
[2017-09-19 12:48] LABS: CAP Mandated Culture Not Indicated (.); CSF:Serum Albumin Index 7 (0-8); Myelin Basic Protein, MBP 3.1 ng/mL (0.0-1.2)
== END ==
PROVIDERS: Family Provider Family Medicine; PCP Family Medicine; Visit Provider Nurse Practitioner Acute Care
DX: G35 Multiple sclerosis (principal)
CPT/HCPCS: 36415; 62270; 77003; 82040; 82042; 82784; 82945; 83873; 84157; 84165; 85049; 85610; 85730; 87015; 87116; 87206; 87899; 88108; 88313; 89050; 89051

== ENCOUNTER → 2018-01-28 16:25 | Outpatient (CLI) | payer MEDICAID, SELFPAY ==
[2018-01-28 16:31] LABS: Bacteria 0 SEEN /hpf (None Seen); Mucous, Urine 0 SEEN /hpf (<or=2+); Red Blood Cells-Urine 0 SEEN /hpf (0-5); Squamous Epithelial Cells - UA 0 SEEN /hpf (5-10); White Blood Cells 0 SEEN /hpf (0-5)
[2018-01-28 17:41] LABS: Color, Urine Yellow (Yellow); Glucose, Dipstick Normal (Normal); Ketone-Dipstick Negative (Negative); Leukocyte Esterase-Dipstick Negative /ul (Negative); Nitrite-Dipstick Negative (Negative); Occult Blood-Urine Negative /ul (Negative); Protein-Dipstick Negative (Negative); Urine Bilirubin Dipstick Negative (Negative); Urine Clarity Clear (Clear); Urine Urobilinogen Normal (Normal)
[2018-01-28 17:51] LABS: Absolute Lymphocyte Count 2.48 X10^3/ul (0.83-4.51); Absolute Neutrophil Count 5.7 X10^3/uL (2.0-7.7); Basophil# 0.02 X10^3/uL; Basophil% 0.2 % (0-1); Eosinophil# 0.14 X10^3/uL; Eosinophils% 1.6 % (0-5); Hematocrit 39.3 % (37-47); Hemoglobin 13.3 g/dl (12.0-15.0); Lymphocyte # 2.48 X10^3/ul (4.0); Lymphocyte % 27.8 % (19-41); Mean Corp Hgb Conc 33.8 g/gl (32-36); Mean Corpuscular Hgb 32.3 pg (27.0-32.0); Mean Corpuscular Volume 95.4 fL (81-99); Mean Platelet Vol. 9.8 fl (6.2-12.0); Monocyte# 0.61 X10^3/uL; Monocyte% 6.8 % (0-10); Neutrophil # 5.65 X10^3/uL (2.7-7.7); Neutrophil % 63.4 % (47-70); Platelet Count 268 K/mm3 (150-450); RBC Distribution Width CV 12.6 % (11.6-14.6); RBC Distribution Width SD 42.7 fl (35.1-43.9); Red Blood Count 4.12 M/mm3 (4.2-5.4); White Blood Count 8.9 K/mm3 (4.4-11.0)
[2018-01-28 17:58] LABS: POSITIVE COUNT NO; POSITIVE DIFFERENTIAL NO; POSITIVE MORPHOLOGY NO
[2018-01-28 18:30] LABS: ALB/GLOB Ratio 1.3 RATIO (0.9-2.4); AST(SGOT) 11 U/L (15-37); Alanine Aminotransfer ALT/SGPT 28 U/L (13-56); Alkaline Phosphatase 60 U/L (45-117); Anion Gap 8 (5-15); BUN 15 mg/dL (7-18); BUN/Creat Ratio 20.4 RATIO (10-20); Calcium,Total 8.9 mg/dL (8.5-10.1); Chloride 107 mmol/L (98-107); Cholesterol 182 mg/dL (200); Creatinine, Serum 0.74 mg/dL (0.55-1.02); EST Glomerular Filtration Rate 89 mL/min (>60); Est Glom Filt Rate - Afr Amer 108 mL/min (>60); Glucose 77 mg/dL (74-106); High Density Lipoprotein 64 mg/dL; Potassium 3.9 mmol/L (3.5-5.1); Sodium Level 141 mmol/L (136-145); Triglycerides 189 mg/dL; Very Low Density Lipoprotein 38 mg/dL (5-40)
== END ==
PROVIDERS: Family Provider Family Medicine; PCP Family Medicine; Visit Provider Family Medicine
DX: E78.5 Hyperlipidemia, unspecified (principal); Z72.0 Tobacco use
CPT/HCPCS: 36415; 80053; 80061; 81001; 85025

== ENCOUNTER → 2018-02-03 06:46 | Outpatient (CLI) | payer MEDICAID, SELFPAY ==
--- NOTE | 2018-02-03 10:54 | NEURO_ITS ---
NCS and/or EMG Patient Report Ordering Doctor: Grisel Ureña DATE OF SERVICE: 02/03/18 This is a left upper extremity EMG and nerve conduction study performed on this 48-year-old female who on the right side had remote carpal tunnel repair. Now on the left side she has pain in her wrist with radiation of the pain into the third through fifth digits of her left hand symptoms worse at night and while driving peer there is also a history of neck fusion of C3 through C6. Left upper extremity sensory and motor nerve conduction studies performed. The median motor and sensory distal latency is mild to moderately prolonged with preservation of amplitude and mild reduction of conduction velocity. The ulnar motor and sensory and the radial sensory responses normal. The left median F wave is mildly prolonged compared to the ulnar F wave. Left upper extremity needle electromyography is performed. Muscles evaluated in cluded the first dorsal osseous, abductor pollicis brevis, brachioradialis, biceps, triceps and deltoid muscles. All muscles demonstrated normal insertional activity with absence of pathologic spontaneous activity. Motor unit potential recruitment pattern and amplitude was normal in all muscles tested. Impression: Abnormal electrophysiology study of left upper extremity consistent with mild to moderate carpal tunnel syndrome left wrist.
== END ==
PROVIDERS: Family Provider Family Medicine; PCP Family Medicine; Referring Provider Nurse Practitioner Acute Care; Visit Provider Nurse Practitioner Acute Care
DX: R20.0 Anesthesia of skin (principal)
CPT/HCPCS: 95886; 95909

== ENCOUNTER → 2018-03-27 12:35 | Outpatient (CLI) | payer MEDICAID, SELFPAY ==
--- NOTE | 2018-03-27 12:37 | RAD_ITS ---
STUDY: X-RAY - LEFT HAND REASON FOR EXAM: Female, 48 years old. Pain. TECHNIQUE: 3 view(s) of the hand. COMPARISON: None. FINDINGS: Normal radiocarpal articulation. Normal distal radioulnar joint. Normal visualized carpal bones. Normal carpal articulations Normal carpometacarpal articulation of the thumb. Normal second through fifth carpometacarpal joints. Normal metacarpi. Normal metacarpophalangeal joint of the thumb. Normal interphalangeal joint of the thumb. Normal proximal and distal phalanges of the thumb. Normal metacarpophalangeal joints of the second through fifth fingers. Normal proximal and distal interphalangeal joints of the second through fifth fingers. Normal phalanges of the second through fifth fingers. The soft tissue structures are unremarkable. There is no demonstrated osseous destructive lesion or acute fracture. RAD/Hand Min 3 Views IMPRESSION: Normal x-ray examination of the left hand. Electronically Signed: Robbie Hinojosa MD at 14:52 EST , Service support ,
== END ==
PROVIDERS: Family Provider Family Medicine; PCP Family Medicine; Referring Provider Physician Assistant; Visit Provider Physician Assistant
DX: M79.642 Pain in left hand (principal)
CPT/HCPCS: 73130

== ENCOUNTER → 2018-04-07 15:26 | Outpatient (CLI) | payer MEDICAID, SELFPAY ==
[2017-09-10 09:14] VITALS: BMI 31.0
--- NOTE | 2018-04-07 15:30 | RAD_ITS ---
STUDY: X-RAY - RIGHT KNEE REASON FOR EXAM: Female, 48 years old. Knee pain, decreased range of motion TECHNIQUE: 4 view(s) of the knee. COMPARISON: None. FINDINGS: Normal visualized distal femur. Normal visualized proximal tibia and fibula. Normal proximal tibiofibular articulation. Normal medial femorotibial compartment. Normal lateral femorotibial compartment. Normal patellofemoral articulation. The soft tissue structures are unremarkable. RAD/Knee 4 or More Views IMPRESSION: Normal x-ray examination of the knee. Electronically Signed: Robbie Flaherty MD at 16:09 EST , Service support ,
--- NOTE | 2018-04-07 15:30 | RAD_ITS ---
STUDY: X-RAY - LEFT KNEE REASON FOR EXAM: Female, 48 years old. Pain TECHNIQUE: 4 view(s) of the knee. COMPARISON: None. FINDINGS: Normal visualized distal femur. Normal visualized proximal tibia and fibula. Normal proximal tibiofibular articulation. Normal medial femorotibial compartment. Normal lateral femorotibial compartment. Normal patellofemoral articulation. The soft tissue structures are unremarkable. RAD/Knee 4 or More Views IMPRESSION: Normal x-ray examination of the knee. Electronically Signed: Robbie Flaherty MD at 16:12 EST , Service support ,
--- OUTSIDE RECORDS SUMMARY | 2018-07-10 04:15 | XMS RPT_ITS ---
:1970 Author Organization OHIP Support Name Relationship Address Phone [employer] Unavailable [address] + [place] [address] [place] [employer] Unavailable [address] + [place] [address] [employer] Unavailable [address] + [place] [address] [place] [employer] Unavailable [address] + [place] [address] [employer] Unavailable [address] + [place] [address] [place] Unavailable [address] + [place] [address] [employer] Unavailable [address] + [place] [address] [place] Unavailable [address] + [place] [address] [employer] Unavailable [address] + [place] [address] [place] Unavailable [address] + [place] [address] [employer] Unavailable [address] + [place] [address] [place] Unavailable [address] + [place] [address] [employer] Unavailable [address] + [place] [address] [place] [employer] Unavailable [address] + [place] [address] [employer] Unavailable [address] + [place] [address] [place] Unavailable [address] + [place] [address] [employer] Unavailable [address] + [place] [address] [place] HO Unavailable [address] + [place] [address] [employer] Unavailable [address] + [place] [address] MITCHLE[place] HO Unavailable [address] + [place] [address] [employer] Unavailable [address] + [place] [address] [place] Unavailable [address] + [place] [address] [employer] Unavailable [address] + [place] [address] [place] Unavailable [address] + [place] [address] [employer] Unavailable [address] + [place] [address] [place] HO Unavailable [address] + [place] [address] [employer] Unavailable [address] + [place] [address] [employer] HO Unavailable [address] + [place] [address] Care Team Providers Name Role Phone Mateo Jimenez Attending Unavailable Mateo Jimenez Referring Unavailable Mateo Jimenez Primary Care Unavailable Mateo Jimenez Attending Unavailable Mateo Jimenez Attending Unavailable Mateo Jimenez Referring Unavailable Mateo Jimenez Primary Care Unavailable White, Ivy Admitting Unavailable White, Ivy Attending Unavailable Calli, Jefe S. Consulting Unavailable White, Ivy Admitting Unavailable White, Ivy Attending Unavailable Mateo Jimenez Primary Care Unavailable White, Ivy Consulting Unavailable White, Ivy Admitting Unavailable White, Ivy Attending Unavailable Mateo Jimenez Primary Care Unavailable Calli, Jefe S. Consulting Unavailable White, Ivy Consulting Unavailable Grisel Ureña ASSET COORDINATOR-C Attending Unavailable Grisel Ureña ASSET COORDINATOR-C Referring Unavailable Mateo Jimenez Primary Care Unavailable Cristhian Gutierres Attending Unavailable White, Ivy Referring Unavailable Grisel Ureña ASSET COORDINATOR-C Attending Unavailable Niranjan, Topanga ASSET COORDINATOR-C Referring Unavailable SchMateo msesina E Primary Care Unavailable Thai, Kai Attending Unavailable White, Ivy Referring Unavailable SchinMateo rojas E Attending Unavailable SchMateo messina E Primary Care Unavailable NiranjanGrisel ASSET COORDINATOR-C Attending Unavailable NiranjanGrisel ASSET COORDINATOR-C Referring Unavailable Schincrystal, Mateo E Primary Care Unavailable Andres Misael Attending Unavailable Schincrystal, Mateo E Referring Unavailable Wayt, Misael Attending Unavailable Wayt, Misael Referring Unavailable Schinner, Mateo E Primary Care Unavailable PROBLEMS PROBLEMS DATE TYPE CONDITION / CODE ATTENDING STATUS SOURCE 03/27/2018 Unknown M79.642 - Pain in Misael Campos Active [place] left hand / Community M79.642(ICD-10) Hospital Repository 02/03/2018 Unknown R20.0 - NiranjanGrisel marquez Active [place] Anesthesia of ASSET COORDINATOR-C Community skin / Hospital R20.0(ICD-10) Repository 09/10/2017 Unknown 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 / ASSET COORDINATOR-C Community G35(ICD-10) Hospital Repository 10/01/2017 Unknown R07.9 - Chest Thai, [place] Active [place] pain, unspecified Community / R07.9(ICD-10) Hospital Repository 10/01/2017 Unknown R07.89 - Other Thai, [place] Active [place] chest pain / Community R07.89(ICD-10) Hospital Repository 05/21/2017 Unknown M25.50 - Pain in Mateo Jimenez Active [place] unspecified joint E Community / M25.50(ICD-10) Hospital Repository 05/21/2017 Unknown 719.40 - Pain in Mateo Jimenez Active [place] joint, site E Community unspecified / Hospital 719.40(ICD-9) Repository PROCEDURES PROCEDURES No Procedure Records FoundRESULTS RESULTS KNEE 4 OR MORE Observed: 04/07/2018 Status: F Source: [place] VIEWS 3:30 PM [facility] REPOSITORY [facility] Imaging Services [address] [place] [address] Knee 4 or More Views MR#: [id number] Acct: [id number] Name: RICCI GARCIA Rep #: [id number] : 1970 F 48 From: Feliciano Flaherty MD PCP: Mateo Jimenez MD Status: REG CLI Study: Knee 4 or More Views Date of Exam: 04/07/18 Exam# [id number] Ordering Dr: Mateo Jimenez MD STUDY: X-RAY - RIGHT KNEE REASON FOR EXAM: Female, 48 years old. Knee pain, decreased range of motion TECHNIQUE: 4 view(s) of the knee. COMPARISON: None. FINDINGS: Normal visualized distal femur. Normal visualized proximal tibia and fibula. Normal proximal tibiofibular articulation. Normal medial femorotibial compartment. Normal lateral femorotibial compartment. Normal patellofemoral articulation. The soft tissue structures are unremarkable. RAD/Knee 4 or More Views IMPRESSION: Normal x-ray examination of the knee. Electronically Signed: Robbie Flaherty MD at 16:09 EST , Service support , CC: Mateo Jimenez MD [employer] Machine Tender: Signed KNEE 4 OR MORE Observed: 04/07/2018 Status: F Source: [place] VIEWS 3:30 PM [facility] [place] [place] REPOSITORY [facility] Imaging Services [address] [place] [address] Knee 4 or More Views MR#: [id number] Acct: [id number] Name: RICCI GARCIA Rep #: [id number] : 1970 F 48 From: Feliciano Flaherty MD PCP: Mateo Jimenez MD Status: REG CLI Study: Knee 4 or More Views Date of Exam: 04/07/18 Exam# [id number] Ordering Dr: Mateo Jimenez MD STUDY: X-RAY - LEFT KNEE REASON FOR EXAM: Female, 48 years old. Pain TECHNIQUE: 4 view(s) of the knee. COMPARISON: None. FINDINGS: Normal visualized distal femur. Normal visualized proximal tibia and fibula. Normal proximal tibiofibular articulation. Normal medial femorotibial compartment. Normal lateral femorotibial compartment. Normal patellofemoral articulation. The soft tissue structures are unremarkable. RAD/Knee 4 or More Views IMPRESSION: Normal x-ray examination of the knee. Electronically Signed: Robbie Flaherty MD at 16:12 EST , Service support , CC: Mateo Jimenez MD [employer] Machine Tender: Signed ORTHOPEDIC VISIT Observed: 03/30/2018 Status: F Source: [place] REPORT 8:01 AM [facility] [address] [place] [address] OFFICE VISIT Date of Service: 03/27/18 MR#: [id number] Acct: [id number] Name: RICCI GARCIA Rep #: [id number] : 1970 Provider: ABDIRASHID Campos Age/Sex: 48/F Location: [facility] [place] [facility] Status: Signed Intake Intake Visit Reasons: LEFT WRIST Is patient in pain?: Yes Pain scale (1-10): 5 Allergies No Known Allergies Allergy (Verified 09/10/17 09:21) Medications Sertraline HCl [Zoloft] 50 mg PO DAILY 08/15/17 [History Confirmed 09/10/17] busPIRone [Buspar] 7.5 mg PO BID 08/15/17 [History Confirmed 09/10/17] Aspirin [Aspirin, Baby] 81 mg PO DAILY@0800 #30 tab.chew 08/16/17 [Rx Confirmed 09/10/17] Atorvastatin Calcium [Lipitor] 40 mg PO QHS #30 tab 08/16/17 [Rx Confirmed 09/10/17] PFSH Social History Smoking Status: Current every day smoker HPI LEFT WRIST: Details: RICCI GARCIA is a 48 year old F here today for left carpal tunnel symptoms. She has h/o right CTR and Cspine fusion of C3/4/5/6 many years ago. Her symptoms today are numbness and tingling into nearly all her fingers. She did have a recent EMG ordered by her neurologist that is here for review, denies any injections or xrays. Ortho Exam Right Wrist/Hand Skin/Wound: No Swelling, No Ecchymosis Left Wrist/Hand Skin/Wound: No Swelling, No Ecchymosis Contralateral Normal: Yes A1 carlos trigger: No Left Wrist: Yes ROM-Extension 0-60, Yes ROM-Flexion 0-80, Yes ROM-Pronation 0-80 and Yes Durken's Test; no Snuffbox tenderness or no Saeed's Test Sensation: Radial: I, Ulnar: I, Median: I WRIST: Patient has no evident abnormalities on inspection of the wrist. She has no localized or generalized swelling of the wrist. She has full range of motion and normal 5/5 strength. She does have a positive Jose's test. Assessment AND Plan Problems 1. Left carpal tunnel syndrome G56.02 Plan Obtained Xrays of patient's left wrist. Personally reviewed Xrays. There is no obvious fracture, dislocation, or lucency noted. See chart for further details. Patient has signs and symptoms that are consistent with a left carpal tunnel syndrome. We discussed treatment options which include doing nothing, braces, therapy, injections, or surgery. Patient has tried braces in the past without success and does not wish to have any injections in the wrist. At this time she really would like to proceed with surgical release. We discussed risks and benefits of surgical procedure as well as the recovery process and all the patient's questions were answered. Consent was signed. We discussed that our surgeon is going on maternity leave and does not have any open surgical slots at this time but will place her sort of on a cancellation list as this is something we probably could add on if another surgery gets canceled or does not get approved. Otherwise she will have to return the second week of April for another consent and to meet the new surgeon Dr. Carter. Orders Orders: Coding Level of Care Code Off vis,new,level 3 Diagnoses Left carpal tunnel syndrome G56.02 03/30/18 0801 <Electronically signed by Misael MENDENHALL> Date Misael MENDENHALL [facility] Signature: Date (if applicable) CC: HAND MIN 3 VIEWS Observed: 03/27/2018 Status: F Source: [place] 12:37 PM [facility] [place] [place] REPOSITORY [facility] Imaging Services [address] [place] [address] Hand Min 3 Views MR#: [id number] Acct: [id number] Name: RICCI GARCIA Rep #: [id number] : 1970 F 48 From: Feliciano Hinojosa MD PCP: Mateo Jimenez MD Status: REG CLI Study: Hand Min 3 Views Date of Exam: 03/27/18 Exam# [id number] Ordering Dr: Misael Campos STUDY: X-RAY - LEFT HAND REASON FOR EXAM: Female, 48 years old. Pain. TECHNIQUE: 3 view(s) of the hand. COMPARISON: None. FINDINGS: Normal radiocarpal articulation. Normal distal radioulnar joint. Normal visualized carpal bones. Normal carpal articulations Normal carpometacarpal articulation of the thumb. Normal second through fifth carpometacarpal joints. Normal metacarpi. Normal metacarpophalangeal joint of the thumb. Normal interphalangeal joint of the thumb. Normal proximal and distal phalanges of the thumb. Normal metacarpophalangeal joints of the second through fifth fingers. Normal proximal and distal interphalangeal joints of the second through fifth fingers. Normal phalanges of the second through fifth fingers. The soft tissue structures are unremarkable. There is no demonstrated osseous destructive lesion or acute fracture. RAD/Hand Min 3 Views IMPRESSION: Normal x-ray examination of the left hand. Electronically Signed: Robbie Hinojosa MD at 14:52 EST , Service support , CC: ABDIRASHID Campos; Mateo Jimenez MD [employer] Machine Tender: Signed NCS AND/OR EMG Observed: 02/03/2018 Status: F Source: [place] PATIENT 11:05 AM [facility] [place] [place] REPOSITORY [facility] Pulmonary Services/Neurology [address] [place] [address] MR#: [id number] Acct: [id number] Name: RICCI GARCIA Rep #: [id number] : 1970 48 From: Juventino Richard MD Referring Dr: Grisel Ureña NP Status: REG CLI Ordering Dr: Date: Location: [facility] Sex: F C NCS and/or EMG Patient Report Ordering Doctor: Grisel Ureña DATE OF SERVICE: 02/03/18 This is a left upper extremity EMG and nerve conduction study performed on this 48-year-old female who on the right side had remote carpal tunnel repair. Now on the left side she has pain in her wrist with radiation of the pain into the third through fifth digits of her left hand symptoms worse at night and while driving peer there is also a history of neck fusion of C3 through C6. Left upper extremity sensory and motor nerve conduction studies performed. The median motor and sensory distal latency is mild to moderately prolonged with preservation of amplitude and mild reduction of conduction velocity. The ulnar motor and sensory and the radial sensory responses normal. The left median F wave is mildly prolonged compared to the ulnar F wave. Left upper extremity needle electromyography is performed. Muscles evaluated included the first dorsal osseous, abductor pollicis brevis, brachioradialis, biceps, triceps and deltoid muscles. All muscles demonstrated normal insertional activity with absence of pathologic spontaneous activity. Motor unit potential recruitment pattern and amplitude was normal in all muscles tested. Impression: Abnormal electrophysiology study of left upper extremity consistent with mild to moderate carpal tunnel syndrome left wrist. 02/03/18 1105 <Electronically signed by Juventino Richard MD> Date Juventino Richard MD CC: ABEBA Ureña; Mateo Jimenez MD; Juventino Richard MD Date Dictated: 02/03/181051 Date Transcribed: 02/03/181051 [employer] Machine Tender: МАРИЯ Signed URINALYSIS, COMPLETE Collected: 01/28/2018 Status: F Source: [place] 4:29 PM [facility] [place] [place] REPOSITORY Order Comment: How was Urine Obtained? CLEAN CATCH TYPE CODE TESTS RESULT OUT OF RANGE REFERENCE UNITS LAB L400.3000 Yellow COLOR Normal Yellow LAB L400.3050 Clear Normal CLARITY Clear LAB L400.3200 Normal mg/dl Normal GLUCOSE, UR Normal LAB L400.3300 Negative mg/dL Normal BILIRUBIN URINE Negative LAB L400.3400 Negative mg/dl Normal KETONE UR Negative LAB L400.3465 1.002-1.030 Normal SP.GR. DIPSTX 1.010 LAB L400.3550 5.0 - 8.0 pH UR Normal 6.0 LAB L400.3600 Negative mg/dl PROT Normal DIPSTX Negative LAB L400.3700 Normal mg/dl Normal UROBILI Normal LAB L400.3750 Negative Normal NITRITE UR Negative LAB L400.3780 Negative /ul Normal OCCULT BLOOD-UR Negative LAB L400.3800 Negative /ul LEUK Normal ESTERASE Negative LAB L400.4050 0-5 /hpf WBC 0 Normal SEEN LAB L400.4100 0-5 /hpf 0 Normal RBC-UA SEEN LAB L400.4150 5-10 /hpf SQUAM 0 Normal EPI SEEN LAB L400.4300 None Seen /hpf 0 Normal BACTERIA SEEN LAB L400.4350 <or=2+ /hpf 0 Normal MUCUS, URINE SEEN Performed By: #### L400.0001 #### [facility] [address] [place], [address] CBC W/DIFF, AUTOMATED Collected: 01/28/2018 Status: F Source: [place] 4:27 PM [facility] [place] [place] REPOSITORY TYPE CODE TESTS RESULT OUT OF RANGE REFERENCE UNITS LAB L100.1000 4.4-11.0 K/mm3 Normal WBC 8.9 LAB L100.1200 4.2-5.4 M/mm3 Low RBC 4.12 LAB L100.1300 12.0-15.0 g/dl Normal HGB 13.3 LAB L100.1400 37-47 % Normal HCT 39.3 LAB L100.1500 81-99 fL Normal MCV 95.4 LAB L100.1600 27.0-32.0 pg High MCH 32.3 LAB L100.1700 32-36 g/gl Normal MCHC 33.8 LAB L100.1810 11.6-14.6 % Normal RDW CV 12.6 LAB L100.1820 35.1-43.9 fl Normal RDW SD 42.7 LAB L100.1900 150-450 K/mm3 Normal PLT 268 LAB L100.2000 6.2-12.0 fl Normal MPV 9.8 LAB L100.2100 47-70 % Normal NEUT% 63.4 LAB L100.2200 19-41 % Normal LY% 27.8 LAB L100.2300 0-10 % Normal MONO% 6.8 LAB L100.2400 0-5 % Normal EO% 1.6 LAB L100.2500 0-1 % Normal BASO% 0.2 LAB L100.2550 0.0-0.9 % Normal IM GRAN % 0.200 Result Comment: IG% - Immature Granulocytes (promyelocytes, myelocytes and metamyelocytes) > 1% indicates that a LEFT SHIFT is Present. LAB L100.2620 2.0-7.7 X10 3/uL Normal Absolute Neut 5.7 LAB L100.2720 0.83-4.51 X10 3/ul Normal Absolute Lymph 2.48 Performed By: #### L100.0100, L500.4100 #### [facility] [address] [place], [address] LIPID PROFILE Collected: 01/28/2018 Status: F Source: [place] 4:27 PM [facility] [place] [place] REPOSITORY TYPE CODE TESTS RESULT OUT OF RANGE REFERENCE UNITS LAB L501.4900 200 mg/dL Normal CHOL 182 Result Comment: <200 mg/dL Desirable 200-240 mg/dL Borderline >240 mg/dL High Risk LAB L501.5000 mg/dL Normal TRIG 189 Result Comment: The drugs N-Acetylcysteine and Metamizole may falsely depress this assay. Serum Triglycerides Reference Interval Normal <150 mg/dL Borderline high 150 - 199 mg/dL High 200 - 499 mg/dL Very High > or = 500 mg/dL LAB L501.6400 mg/dL Normal HDL 64 Result Comment: The drugs N-Acetylcysteine and Metamizole may falsely depress this assay. Reference Range HDL <40 mg/dL Low HDL Cholesterol HDL >or= 60 mg/dL High HDL Cholesterol LAB L501.6500 0-130 mg/dL Normal LDL 80 LAB L501.6600 5-40 mg/dL Normal VLDL 38 Performed By: #### L100.0100, L500.4100 #### [facility] [address] [place], [address] COMPREHENSIVE METABOLIC Collected: 01/28/2018 Status: F Source: [facility] 4:27 PM [facility] [place] [place] REPOSITORY TYPE CODE TESTS RESULT OUT OF RANGE REFERENCE UNITS LAB L501.0100 74-106 mg/dL Normal GLU 77 Result Comment: Please note revised GLUCOSE reference range effective 2017. LAB L501.1000 7-18 mg/dL Normal BUN 15 LAB L501.1100 0.55-1.02 mg/dL Normal CREAT,SERUM 0.74 Result Comment: The validity of the calculated GFR AND GFRAA in patients over 70 years has not been determined. Clinical correlation is essential. LAB L501.1110 >60 mL/min Normal EST GFR 89 Result Comment: Non- GFR Calc LAB L501.1115 >60 mL/min Normal EST GFR - AA 108 Result Comment: GFR Calc LAB L501.1300 10-20 RATIO High BUN/CRE 20.4 LAB L501.1500 6.4-8.2 g/dL T Normal PROT 7.0 LAB L501.1800 3.2-5.0 g/dL Normal ALB 4.0 LAB L501.1950 2.2-4.2 g/dL Normal GLOB 3.0 LAB L501.2000 0.9-2.4 RATIO Normal A/G 1.3 LAB L501.2200 8.5-10.1 mg/dL CA Normal 8.9 LAB L501.4100 15-37 U/L Low AST 11 LAB L501.4305 45-117 U/L Normal ALK P 60 LAB L501.4405 13-56 U/L Normal ALT 28 LAB L501.4600 0.20-1.00 mg/dL T Normal BILI 0.40 LAB L501.5300 136-145 mmol/L NA Normal 141 LAB L501.5600 3.5-5.1 mmol/L K Normal 3.9 LAB L501.5900 98-107 mmol/L CL Normal 107 LAB L501.6100 21.0-32.0 mmol/L Normal CO2 26.0 LAB L501.6200 5-15 Normal GAP 8 Performed By: #### L500.4050 #### [facility] [address] [place], [address] SPINAL FLUID CELL Collected: 09/10/2017 Status: C Source: [place] COUNT+DIFF 9:48 AM [facility] [place] [place] REPOSITORY TYPE CODE TESTS RESULT OUT OF RANGE REFERENCE UNITS LAB L200.2695 0.000-0.000 10 3/uL High TC CSF 0.002 Result Comment: This is the Total Number of Nucleated Cell Types in the Body Fluid. LAB L200.2750 0.000-0.000 10 3/uL High WBC,CSF 0.002 LAB L200.3000 Normal PATH REV Reviewed Result Comment: Acellular specimen. Parish Campbell M.D. 09/11/17 AMENDED REPORT 09/11/17 1313 PATH REV previously reported as: May follow LAB L200.3510 % BF Normal PMN WBC% 0.0 LAB L200.3515 % BF MN Normal WBC% 100.0 LAB L200.3520 10 3/uL BF MN Normal WBC# 0.002 LAB L200.3525 10 3/uL BF Normal PMN WBC# 0.000 LAB L200.2500 4 Normal TESTED TUBE # LAB L200.2600 Colorless CSF Normal Color COLORLESS LAB L200.2650 Clear Normal APPEARANCE CSF CLEAR LAB L200.2700 None seen /mm-3 0 Normal RBC,CSF Performed By: #### L200.0100 #### [facility] [address] [facility] [address], [address] GLUCOSE SPINAL FLUID Collected: 09/10/2017 Status: F Source: [place] 9:48 AM [facility] [place] [place] REPOSITORY Order Comment: Comments: LC#[id number] PROTIEN ELCTROPHORESIS CSF Specimen Source? CSF TYPE CODE TESTS RESULT OUT OF RANGE REFERENCE UNITS LAB L501.0400 40-75 mg/dL Normal GLU SPINAL 52 FLD Performed By: #### L501.0400, L501.1600 #### [facility] [address] [place], [place], [address] PROTEIN SPINAL FLUID Collected: 09/10/2017 Status: F Source: [place] 9:48 AM [facility] [place] [place] REPOSITORY Order Comment: Comments: #[id number] PROTIEN ELCTROPHORESIS CSF Specimen Source? CSF TYPE CODE TESTS RESULT OUT OF REFERENCE UNITS RANGE LAB L501.1600 15.0-45.0 mg/dL High PROTEIN CSF 47.0 Performed By: #### L501.0400, L501.1600 #### [facility] [address] [facility] [address] [place], [place], [address] CYTOSPIN ON FLUID Observed: 09/10/2017 Status: F Source: [place] 9:48 AM [facility] [place] [place] REPOSITORY Patient: RICCI GARCIA : 1970 (47/F) Acct Num: [id number] Phys: Griselarchie Ureña ASSET COORDINATOR Unit Num: [id number] Loc: RAD Specimen: [id number] Received: 09/10/17 - 1133 Spec Type: CYSPIN FL TISSUES TISSUES: Cerebrospinal Fluid CYTOLOGY GROSS Received is 1 ml of clear, colorless fluid labeled with the patient's name and and designated per the requisition as CSF. Submitted for cytology preparation. / 09/10/17 TC:4 CPT: 91846 CYTOLOGY STUDY Slides are reviewed. DIAGNOSIS CYTOLOGY Cerebrospinal fluid for cytology (cytospin): Acellular specimen. SJ:bea 09/11/17 HEADER OPERATION: Lumbar puncture PRE-OP DIAGNOSIS: Possible multiple sclerosis TISSUE SUBMITTED: Cerebrospinal fluid for cytology Signed Parish Campbell 09/11/17 <signature on file> Performed By: #### PCYSPIN #### [facility] [address] [place], [place], [address] CYTOLOGY, BODY FLUID / Collected: 09/10/2017 Status: F Source: [place] CSF 9:48 AM [facility] [place] [place] REPOSITORY Order Comment: Specimen Source: CSF TYPE CODE TESTS RESULT OUT OF RANGE REFERENCE UNITS LAB L350.1000 SEE Normal PATHOLOGY CYTOLOGY,BF REPORT /CSF Result Comment: Specimen submitted to Anatomical Pathology Department for testing. Performed By: #### L350.1000 #### [facility] [address] [place], [place], [address] MISCELLANEOUS LAB Collected: 09/10/2017 Status: F Source: [place] PROCEDURE 9:48 AM [facility] [place] [place] REPOSITORY Order Comment: Comments: #[id number] PROTIEN ELCTROPHORESIS CSF Test(s) Ordered: #[id number] PROTIEN ELCTROPHORESIS CSF TYPE CODE TESTS RESULT OUT OF RANGE REFERENCE UNITS LAB L801.1541 Normal [facility] [place] Result Comment: TEST RESULT LIMITS Protein Electrophoresis, CSF Protein, Total, CSF 44.3 High mg/dL 0.0 - 44.0 Pre-Albumin (CSF) 2.5 % 2.2 - 7.1 Albumin (CSF) 67.2 % 56.8 - 76.4 Aycdh-1-Vvszzcgr CSF 5.9 % 1.1 - 6.6 Ipjuy-1-Odnxptqr CSF 5.9 % 3.0 - 12.6 Beta Globulin (CSF) 13.5 % 7.3 - 17.9 Gamma Globulin (CSF) 4.9 % 3.0 - 13.0 Protein electrophoresis scan will follow via computer, mail, or experience design director delivery. M-Eliceo Not Observed % Not Observed PDF TESTING PERFORMED AT [facility]. ORIGINAL REPORT ON FILE IN LAB CONTAINS ADDITIONAL TEST SITE INFORMATION. Performed By: #### L801.1541 #### [facility] [address] [place], [address] CRYPTOCOCCUS ANTIGEN CSF Collected: 09/10/2017 Status: F Source: [place] 9:48 AM [facility] [place] [place] REPOSITORY TYPE CODE TESTS RESULT OUT OF RANGE REFERENCE UNITS LAB L800.1960 Negative Normal CRYP Negative AG CSF Performed By: #### L800.1960, L801.0010, L3100.3450 #### [facility] (refer to report for specific site) refer to report for address and phone number ESTEPHANIA PAULSON Collected: 09/10/2017 Status: F Source: [place] PANEL 9:48 AM [facility] [place] [place] REPOSITORY TYPE CODE TESTS RESULT OUT OF RANGE REFERENCE UNITS LAB L801.2230 Normal [facility] REF LAB LAB L801.97779 . Normal [facility] Comment COM Result Comment: Zero (0) oligoclonal bands were observed in the CSF. Interpretation: Criteria for Positivity: Four (4) or more oligoclonal bands observed only in the CSF have been shown to be most consistent with MS using our method. [Monie , Govind EL, Darcy PHILLIPS, and Liliya JA: Cerebrospinal Fluid Oligoclonal Bands in the Diagnosis of Multiple Sclerosis. Am J Clin Pathol 120(5):672-675, 2003]. Oligoclonal bands that are present only in the CSF have been associated with a variety of inflammatory brain diseases such as multiple sclerosis (MS), subacute encephalitis, neurosyphilis, etc. Increased IgG in the CSF is not specific for MS, but is an indication of chronic neural inflammation. Clinical correlation indicated. Approximately 2-3% of clinically confirmed MS patients show little or no evidence of oligoclonal bands in the CSF; however oligoclonal bands may develop as the disease progresses. Oligoclonal Banding testing performed using Isoelectric Focusing (IEF) and immunoblotting methodology. LAB L804.2600 0.0-1.2 ng/mL High MBP 849983 3.1 Result Comment: Results for this test are for research purposes only by the assay's jig and fixture maker. The performance characteristics of this product have not been established. Results should not be used as a diagnostic procedure without confirmation of the diagnosis by another medically established diagnostic product or procedure. LAB L804.5100 0.0-8.6 mg/dL Normal CSF IgG 1.9 LAB L804.5200 11-48 mg/dL Normal CSF ALBUMIN 30 LAB L804.5300 700-1600 mg/dL Low IgG SERUM 519 LAB L804.5400 3.5-5.5 g/dL Normal SERUM ALBUMIN 4.5 LAB L804.5500 0.00-0.25 Normal CSF IGG/ALB 0.06 LAB L804.5600 0.0-0.7 Normal CSF IgG INDEX 0.5 LAB L804.5700 -9.9 TO +3.3 mg/day Normal CSF IgG SYN RAT -.1 LAB L804.5800 0-8 Normal CSF:SER ALB IND 7 Result Comment: Relationship to blood-brain barrier: Consistent with an intact barrier <9 Slight impairment 9 - 14 Moderate impairment 14 - 30 Severe impairment 30 - 100 Complete breakdown >100 LAB L804.5900 . Normal Not CAP Reflx Indicated Cult Result Comment: Performed at: [facility] Lab[address] [id number] Center Machine Set Up Operator: Teddy Naqvi PhD, Phone: [phone] Performed at: [facility] [address] [id number] Center Machine Set Up Operator: Tay Zamarripa MD, Phone: [phone] Performed By: #### L800.1960, L801.0010, L3100.3450 #### [facility] (refer to report for specific site) refer to report for address and phone number PROTEIN ELECTROPH, S Collected: 09/10/2017 Status: F Source: [place] 9:48 AM [facility] [place], [place] REPOSITORY TYPE CODE TESTS RESULT OUT OF RANGE REFERENCE UNITS LAB L3100.3500 6.0-8.5 g/dL Normal PROTEIN,TOTAL 6.6 LAB L3100.3600 2.9-4.4 g/dL Normal ALBUMIN 3.8 LAB L3100.3700 0.0-0.4 g/dL Normal ALPHA-1 GLOBUL 0.3 LAB L3100.3800 0.4-1.0 g/dL Normal ALPHA-2 GLOBUL 0.8 LAB L3100.3900 0.7-1.3 g/dL Normal BETA GLOBULIN 1.1 LAB L3100.4000 0.4-1.8 g/dL Normal GAMMA GLOBULIN 0.6 LAB L3100.4110 Normal M-SPIKE Result Comment: Not Observed LAB L3100.4200 2.2-3.9 g/dL GLOBULIN, TOTAL Normal 2.8 LAB L3100.4300 0.7-1.7 A/G RATIO Normal 1.4 LAB L3100.4320 . INTERPRETATION Normal Comment Result Comment: Protein electrophoresis scan will follow via computer, mail, or experience design director delivery. LAB L3100.4340 . Normal NOTE: Comment Result Comment: The SPE pattern appears essentially unremarkable. Evidence of monoclonal protein is not apparent. Performed By: #### L800.1960, L801.0010, L3100.3450 #### [facility] (refer to report for specific site) refer to report for address and phone number Observed: 09/10/2017 Status: F Source: [place] ACID FAST BACT 9:48 AM [facility] [place], [place] CULT/SM REPOSITORY AFB Smear[facility] ORIGINAL REPORT ON FILE IN LAB CONTAINS ADDITIONAL TEST SITE INFORMATION. Smear, Acid Fast NO ACID-FAST BACILLI OBSERVED ON SMEAR. AFB Cult [facility]. ORIGINAL REPORT ON FILE IN LAB CONTAINS ADDITIONAL TEST SITE INFORMATION. Culture, Acid Fast NO ACID-FAST BACILLI ISOLATED AFTER 6 WEEKS. Performed By: #### M300.1000 #### [facility] [address] [place], [address] PLATELET COUNT Collected: 09/10/2017 Status: F Source: [place] 8:47 AM [facility] [place] [place] REPOSITORY TYPE CODE TESTS RESULT OUT OF RANGE REFERENCE UNITS LAB L100.1900 150-450 K/mm3 Normal PLT 226 Performed By: #### L100.1900 #### [facility] [address] [place], [address] PROTHROMBIN TIME W/INR Collected: 09/10/2017 Status: F Source: [place] 8:47 AM [facility] [place] [place] REPOSITORY TYPE CODE TESTS RESULT OUT OF RANGE REFERENCE UNITS LAB L300.4150 11.7-14.9 SECONDS Normal PROTIME 12.6 LAB L300.4200 Normal INR 0.9 Performed By: #### L300.3900, L300.4310 #### [facility] [address] [facility] [place], [address] PARTIAL THROMBOPLAST Collected: 09/10/2017 Status: F Source: [place] TIME 8:47 AM [facility] [place] [place] REPOSITORY TYPE CODE TESTS RESULT OUT OF RANGE REFERENCE UNITS LAB L300.4310 24.1-36.2 Seconds Normal PTT 29.6 Performed By: #### L300.3900, L300.4310 #### [facility] [address] [place], [address] PROTEIN ELECTROPH, S Collected: 09/10/2017 Status: F Source: [place] 8:47 AM [facility] [place] [place] REPOSITORY TYPE CODE TESTS RESULT OUT OF RANGE REFERENCE UNITS LAB L3100.3500 6.0-8.5 g/dL Normal PROTEIN,TOTAL 6.7 LAB L3100.3600 2.9-4.4 g/dL Normal ALBUMIN 4.0 LAB L3100.3700 0.0-0.4 g/dL Normal ALPHA-1 GLOBUL 0.3 LAB L3100.3800 0.4-1.0 g/dL Normal ALPHA-2 GLOBUL 0.8 LAB L3100.3900 0.7-1.3 g/dL Normal BETA GLOBULIN 1.1 LAB L3100.4000 0.4-1.8 g/dL Normal GAMMA GLOBULIN 0.5 LAB L3100.4110 Normal M-SPIKE Result Comment: NOT OBSERVED LAB L3100.4200 2.2-3.9 g/dL GLOBULIN, TOTAL Normal 2.7 LAB L3100.4300 0.7-1.7 A/G RATIO Normal 1.5 LAB L3100.4320 . INTERPRETATION Normal Comment Result Comment: Protein electrophoresis scan will follow via computer, mail, or experience design director delivery. LAB L3100.4340 . Normal NOTE: Comment Result Comment: The SPE pattern appears essentially unremarkable. Evidence of monoclonal protein is not apparent. Performed at: [facility] [id number] Center Machine Set Up Operator: Teddy Naqvi PhD, Phone: [phone] Performed By: #### L3100.9967 #### [facility] (refer to report for specific site) refer to report for address and phone number FLUORO GUIDED LUMBAR Observed: 09/10/2017 Status: F Source: [place] PUNCTURE 8:41 AM [facility] [place] [place] REPOSITORY [facility] Imaging Services [address] [place] [address] Fluoro Guided Lumbar Puncture MR#: [id number] Acct: [id number] Name: RICCI GARCIA Rep #: [id number] : 1970 F 47 From: Sudhakar Matthews MD PCP: Mateo Jimenez MD Status: REG CLI Study: Fluoro Guided Lumbar Puncture Date of Exam: 09/10/17 Exam# [id number] Ordering Dr: Grisel Ureña ASSET COORDINATOR-[place] PROCEDURE: Fluoroscopic guided Lumbar Puncture. DATE: PROCEDURE: Fluoroscopic guided Lumbar Puncture. DATE: September 10, 2017 CLINICAL INDICATION: Possible multiple sclerosis. PHYSICIAN: Sudhakar Matthews M.D. MEDICATIONS: 1% lidocaine administered subcutaneously for local anesthesia. ACCESS SITE: Lower posterior back. NEEDLE: 22-gauge spinal needle. SPECIMEN: Approximately 12 mL clear]CSF fluid. FLUOROSCOPY TIME (if supplied): (0:55) minutes/seconds COMPLICATIONS: None immediate. The risks, benefits, and alternatives to the procedure were explained to the patient. The specific risks of bleeding, infection, and neurovascular injury were detailed and accepted. Witnessed informed consent was obtained. The patient was placed on the fluoroscopic table in the prone position. The level for needle entry was determined and marked. The overlying skin was cleaned and prepped in the usual sterile fashion. 2% lidocaine was administered subcutaneously for local anesthesia. Under fluoroscopic guidance a 22-gauge spinal needle was advanced. The thecal sac was entered at the L3- L4 vertebral level. The inner stylet was removed. There was spontaneous flow of clear CSF fluid. The patient was placed in a reversed Trendelenburg position. Approximately 12 mL of cerebrospinal fluid was collected using gravity. The specimen was collected and submitted to the laboratory for further evaluation. The needle was withdrawn,. Hemostasis was achieved and a sterile dressing placed. The patient tolerated the procedure well without any immediate complications. The patient was placed supine with head elevated and returned to the floor in stable condition. RAD/Fluoro Guided Lumbar Puncture IMPRESSION: Successful fluoroscopic-guided lumbar puncture. . Electronically Signed: Sudhakar Matthews MD at 10:39 EDT Tel [phone], Service support , CC: ABEBA Ureña; Mateo Jimenez MD [employer] Assembly Machine Tender: Signed CBC W/DIFF, AUTOMATED Collected: 08/26/2017 Status: F Source: [place] 4:11 PM [facility] [place] [place] REPOSITORY TYPE CODE TESTS RESULT OUT OF RANGE REFERENCE UNITS LAB L100.1000 4.4-11.0 K/mm3 Normal WBC 9.6 LAB L100.1200 4.2-5.4 M/mm3 Low RBC 4.07 LAB L100.1300 12.0-15.0 g/dl Normal HGB 13.0 LAB L100.1400 37-47 % Normal HCT 38.3 LAB L100.1500 81-99 fL Normal MCV 94.1 LAB L100.1600 27.0-32.0 pg Normal MCH 31.9 LAB L100.1700 32-36 g/gl Normal MCHC 33.9 LAB L100.1810 11.6-14.6 % Normal RDW CV 12.2 LAB L100.1820 35.1-43.9 fl Normal RDW SD 41.1 LAB L100.1900 150-450 K/mm3 Normal PLT 279 LAB L100.2000 6.2-12.0 fl Normal MPV 9.7 LAB L100.2100 47-70 % Normal NEUT% 66.8 LAB L100.2200 19-41 % Normal LY% 25.8 LAB L100.2300 0-10 % Normal MONO% 5.5 LAB L100.2400 0-5 % Normal EO% 1.5 LAB L100.2500 0-1 % Normal BASO% 0.2 LAB L100.2550 0.0-0.9 % Normal IM GRAN % 0.200 Result Comment: IG% - Immature Granulocytes (promyelocytes, myelocytes and metamyelocytes) > 1% indicates that a LEFT SHIFT is Present. LAB L100.2620 2.0-7.7 X10 3/uL Normal Absolute Neut 6.4 LAB L100.2720 0.83-4.51 X10 3/ul Normal Absolute Lymph 2.47 Performed By: #### L100.0100, L100.9950, L101.9900 #### [facility] [address] [facility]. [place], [place], [id number] RETIC PANEL Collected: 08/26/2017 Status: F Source: [place] 4:11 PM [facility] [place] REPOSITORY TYPE CODE TESTS RESULT OUT OF RANGE REFERENCE UNITS LAB L101.0000 0.5-1.5 % Normal RETIC 1.22 LAB L101.0060 3.00-15.90 % IM Normal RET FRACTION 8.40 LAB L101.0090 30-35 pg High RET-HE 38.1 LAB L101.0110 1.0-7.9 % Low IPF 0.9 Result Comment: Low PLT + Low IPF suggest a bone marrow production disorder Low PLT + high IPF suggests peripheral destruction (e.g.ITP, TTP, HIT, DIC, autoimmune) or bone marrow recovery Trending of serial IPF measurements is recommended when evaluating for bone marrow respones Value above normal range indicates an increase in RBC cellular response from bone marrow. Performed By: #### L100.0100, L100.9950, L101.9900 #### [facility] [address] [place], [place], [id number] ERYTHROCYTE SED RATE Collected: 08/26/2017 Status: F Source: [place] 4[facility]11 PM [facility] TYPE CODE TESTS RESULT OUT OF RANGE REFERENCE UNITS LAB L102.0000 0-20 mm/hr Normal SED RATE 7 Performed By: #### L100.0100, L100.9950, L101.9900 #### [facility] [address] [place], [address] COMPREHENSIVE METABOLIC Collected: 08/26/2017 Status: F Source: [place] 4:11 PM [facility] [place] REPOSITORY Order Comment: Is Patient Taking Vitamins or Folic Acid Supplements? N TYPE CODE TESTS RESULT OUT OF RANGE REFERENCE UNITS LAB L501.0100 74-106 mg/dL Normal GLU 95 Result Comment: Please note revised GLUCOSE reference range effective 2017. LAB L501.1000 7-18 mg/dL Normal BUN 12 LAB L501.1100 0.55-1.02 mg/dL Normal CREAT,SERUM 0.62 Result Comment: The validity of the calculated GFR AND GFRAA in patients over 70 years has not been determined. Clinical correlation is essential. LAB L501.1110 >60 mL/min Normal EST GFR 110 Result Comment: Non- GFR Calc LAB L501.1115 >60 mL/min Normal EST GFR - AA 133 Result Comment: GFR Calc LAB L501.1300 10-20 RATIO Normal BUN/CRE 19.5 LAB L501.1500 6.4-8.2 g/dL T Normal PROT 7.2 LAB L501.1800 3.2-5.0 g/dL Normal ALB 4.0 LAB L501.1950 2.2-4.2 g/dL Normal GLOB 3.2 LAB L501.2000 0.9-2.4 RATIO Normal A/G 1.2 LAB L501.2200 8.5-10.1 mg/dL CA Normal 8.9 LAB L501.4100 15-37 U/L Normal AST 25 Result Comment: Slight Hemolysis, Result may be falsely increased. LAB L501.4305 45-117 U/L Normal ALK P 57 LAB L501.4405 13-56 U/L Normal ALT 32 LAB L501.4600 0.20-1.00 mg/dL Normal T BILI 0.40 LAB L501.5300 136-145 mmol/L Normal NA 141 LAB L501.5600 3.5-5.1 mmol/L Normal K 3.7 Result Comment: Slight Hemolysis, Result may be falsely increased. LAB L501.5900 98-107 mmol/L Normal CL 107 LAB L501.6100 21.0-32.0 mmol/L Normal CO2 24.0 LAB L501.6200 5-15 Normal GAP 10 Performed By: #### L500.4050, L501.2300, L501.5200, L501.58375, L501.9520, L506.0250, L506.0400 #### [facility] [address] [place], [address] PHOSPHORUS Collected: 08/26/2017 Status: F Source: [place] 4:11 PM [facility] [place] [place] REPOSITORY Order Comment: Is Patient Taking Vitamins or Folic Acid Supplements? N TYPE CODE TESTS RESULT OUT OF RANGE REFERENCE UNITS LAB L501.2300 2.5-4.9 mg/dL Normal PHOS 3.6 Performed By: #### L500.4050, L501.2300, L501.5200, L501.51094, L501.9520, L506.0250, L506.0400 #### [facility] [address] [place], [place], [id number] MAGNESIUM Collected: 08/26/2017 Status: F Source: [place] 4:11 PM [facility] [place] [place] REPOSITORY Order Comment: Is Patient Taking Vitamins or Folic Acid Supplements? N TYPE CODE TESTS RESULT OUT OF RANGE REFERENCE UNITS LAB L501.5200 1.6-2.6 mg/dL Normal MG 1.9 Result Comment: Slight Hemolysis, Result may be falsely increased. Performed By: #### L500.4050, L501.2300, L501.5200, L501.16247, L501.9520, L506.0250, L506.0400 #### [facility] [address] [place], [address] FREE T3 Collected: 08/26/2017 Status: F Source: [place] 4:11 PM [facility] [place] [place] REPOSITORY Order Comment: Is Patient Taking Vitamins or Folic Acid Supplements? N TYPE CODE TESTS RESULT OUT OF RANGE REFERENCE UNITS LAB L501.50792 2.18-3.98 pg/mL Normal FREE T3 2.6 Performed By: #### L500.4050, L501.2300, L501.5200, L501.71080, L501.9520, L506.0250, L506.0400 #### [facility] [address] [place], [address] THYROID STIM HORMONE Collected: 08/26/2017 Status: F Source: [place] (TSH) 4:11 PM [facility] [place] [place] REPOSITORY Order Comment: Is Patient Taking Vitamins or Folic Acid Supplements? N TYPE CODE TESTS RESULT OUT OF RANGE REFERENCE UNITS LAB L501.9520 0.358-3.74 uIU/mL Normal TSH 1.74 Performed By: #### L500.4050, L501.2300, L501.5200, L501.68955, L501.9520, L506.0250, L506.0400 #### [facility] [address] [place], [place], [id number] (301) FOLATES, (FOLIC ACID) Collected: 08/26/2017 Status: F Source: [place] 4:11 PM [facility] [place] [place] REPOSITORY Order Comment: Is Patient Taking Vitamins or Folic Acid Supplements? N TYPE CODE TESTS RESULT OUT OF RANGE REFERENCE UNITS LAB L506.0250 3.1-55.4 ng/mL Normal FOLATES 17.90 Result Comment: Slight Hemolysis, Result may be falsely increased. Performed By: #### L500.4050, L501.2300, L501.5200, L501.65777, L501.9520, L506.0250, L506.0400 #### [facility] [address] [place], [address] T4 FREE DIRECT Collected: 08/26/2017 Status: F Source: [place] 4:11 PM [facility] [place] [place] REPOSITORY Order Comment: Is Patient Taking Vitamins or Folic Acid Supplements? N TYPE CODE TESTS RESULT OUT OF RANGE REFERENCE UNITS LAB L506.0400 0.76-1.46 ng/dL Normal T4 FREE 0.88 DIRECT Performed By: #### L500.4050, L501.2300, L501.5200, L501.71965, L501.9520, L506.0250, L506.0400 #### [facility] [address] [place], [address] VITAMIN B12 Collected: 08/26/2017 Status: F Source: [place] 4:11 PM [facility] [place] [place] REPOSITORY TYPE CODE TESTS RESULT OUT OF RANGE REFERENCE UNITS LAB L503.0105 211-911 pg/mL Normal Vitamin B12 249 Performed By: #### L503.0105, L506.1000 #### [facility] [address] [place], [address] VITAMIN D,25 HYDROXY Collected: 08/26/2017 Status: F Source: [place] 4:11 PM [facility] [place] [place] REPOSITORY TYPE CODE TESTS RESULT OUT OF REFERENCE UNITS RANGE LAB L506.1000 29.95-100.01 ng/mL Low Vitamin D 16.1 25-OH Result Comment: Vitamin D 25(OH) Status Range Deficiency <20 ng/mL (50nmol/L) Insuffciency 20 - 30 ng/mL (50 - 75 nmol/L) Sufficiency 30 - 100 ng/mL (75 - 250 nmol/L) Toxicity >100 ng/mL (>250 nmol/L) Performed By: #### L503.0105, L506.1000 #### [facility] [address] [place], [address] RAPID PLASMIN REAGIN Collected: 08/26/2017 Status: F Source: [place] (RPR) 4:11 PM [facility] [place] [place] REPOSITORY TYPE CODE TESTS RESULT OUT OF REFERENCE UNITS RANGE LAB L700.5000 NONREACTIVE NONREACTIVE Normal RPR Performed By: #### L700.5000 #### [facility] [address], [address] 12 LEAD ELECTROCARDIOGRAM Observed: 08/22/2017 Status: F Source: [place] 3:49 PM [facility] [place] REPOSITORY [facility] Cardiovascular Services [address] [place] [place] [address] 12 Lead EKG 08/16/17 0521 MR#: [id number] Acct: [id number] Name: RICCI GARCIA Rep #: [id number] : 1970 47 From: Kai Andre MD Attending Dr: Ivy Pratt Status: DIS SUSAN Ordering Dr: Ivy Pratt Date: 08/16/17 Location: [facility] Sex: F C Admitted: 08/15/17 Test Reason : AM EKG Blood Pressure : / mmHG Vent. Rate : 064 BPM Atrial Rate : 064 BPM P-R Int : 168 ms QRS Dur : 074 ms QT Int : 428 ms P-R-T Axes : 045 039 031 degrees QTc Int : 441 ms Normal sinus rhythm Normal ECG When compared with ECG of 21-APR-2015 12:32, Nonspecific T wave abnormality has replaced inverted T waves in Inferior leads Nonspecific T wave abnormality, improved in Anterior leads Confirmed by KAI ANDRE MD ([id number]), editor managing director GOPI RUSSO ([id number]) on 08/22/2017 3:48:47 PM Referred By: SABI Confirmed By:KAI ANDRE MD 08/22/17 1548 Date Kai Andre MD CC: Ivy Pratt; Mateo Jimenez MD Signed 12 LEAD ELECTROCARDIOGRAM Observed: 08/20/2017 Status: F Source: [place] 6:09 PM [facility] [place] [place] REPOSITORY [facility] Cardiovascular Services [address] [place] [address] 12 Lead EKG 08/15/17 0815 MR#: [id number] Acct: [id number] Name: RICCI GARCIA Rep #: [id number] : 1970 47 From: Cristhian Gutierres MD Attending Dr: Ivy Pratt Status: DIS SUSAN Ordering Dr: Keo Reyes DO Date: 08/15/17 Location: [facility] Sex: F C Admitted: 08/15/17 Test Reason : CHEST PAIN Blood Pressure : / mmHG Vent. Rate : 087 BPM Atrial Rate : 087 BPM P-R Int : 150 ms QRS Dur : 082 ms QT Int : 368 ms P-R-T Axes : 040 008 015 degrees QTc Int : 442 ms Normal sinus rhythm Normal ECG Confirmed by CRISTHIAN GUTIERRES ([id number]), editor managing director GOPI RUSSO ([id number]) on 08/19/2017 4:06:43 PM Referred By: Confirmed By:CRISTHIAN GUTIERRES 08/19/17 1606 Date Cristhian Gutierres MD CC: Ivy Prtat; Mateo Jimenez MD; Keo Reyes DO Signed DISCHARGE SUMMARY Observed: 08/16/2017 Status: F Source: [place] 2:41 PM [facility] [place] [place] REPOSITORY [facility] Medical Records Department [address] [place] [address] Discharge Summary 08/16/17 1431 MR#: [id number] Acct: [id number] Name: RICCI GARCIA Rep #: [id number] : 1970 47 From: Ivy Pratt PCP: Mateo Jimenez MD Status: ADM SUSAN Y Location: [place] [address] Discharge Date and Diagnosis - Problem List Patient Problems: Active and Suspected Problems Chest pain (Acute) TIA (transient ischemic attack) (Acute) Date of Admission: 08/15/17 Date of Discharge: 08/16/17 - Primary Discharge Diagnosis Active and Suspected Problems (1) Vision Changes, RLE Weakness/Paresthesias, Resolved secondary to Possible TIA (2) Non-specific MRI Brain scattered foci hyperintensity in the periventricular and subcortical white matter, Unclear Specific Etiology (follow-up MRI Brain w/ Contrast without enhancement) (3) Chest Pain, Non-cardiac, Unclear Specific Etiology, Possibly Anxiety associated (4) Hypokalemia (5) Tobacco Abuse (6) Anxiety and depression (7) Chronic back pain s/p cervical surgery w/ herniated disc: Stable. (8) Obesity - Secondary Discharge Diagnosis Chronic Problems Chronic neck pain (Chronic) HLD (hyperlipidemia) (Chronic) Anxiety and depression (Chronic) Obesity (BMI 30.0-34.9) (Chronic) Tobacco use (Chronic) Hospital Course and Treatment Imaging Results: 08/16/17 05:55 Stress Test Echo W/Contrast [ECHO] AM (NON MEDS) 08/16/17 12:57 MRI Brain [Brain WITH Contrast] [MRI] Urgent Reviewed presentation history, work-up including MRI Brain with Neurology, they personally reviewed imaging studies and requested MRI Brain with IV contrast which was obtained and upon their review did not see any concerning enhancement thus per discussion with Dr. Mccurdy, patient discharged to home in stable improved condition with follow-up in their office. Operations: None Procedures: 2-D Echocardiogram, EKG, Stress test Summary of Care Provided: The patient is a 47 y/o F w/ PMHx: Chronic back pain s/p cervical surgery w/ herniated disc, Obesity, Anxiety and Depression, HLD, Tobacco Use who presented to the [facility] ED on 08/15/17 with history while at work 1 hour [employer] onset L eye lateral vision changes, primarily blurry vision with onset substernal chest dull ache w/ concurrent mild dyspnea, diaphoresis, lightheadedness as well as vague RLE weakness and heaviness sensation with resolution of her vision changes after 20 minutes and resolution of her chest discomfort upon ED presentation. In the ED she initially noted mild RLE heaviness but this resolved following admission. She noted not having eaten for several hours with mild headache but otherwise noted feeling improved. She did note with onset of the vision changes she became extremely anxious and is not sure if the symptoms following were possible secondary to her anxiety. In the ED NIH 0. 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 In the emergency room patient administered aspirin 324 mg p.o. 1. The patient was admitted to the PCU, MRA Head and Neck unremarkable, MRI Brain obtained w/ noted no evidence of acute or subacute infarct or insult however noted few scattered foci of T2 FLAIR hyperintensity in the periventricular and subcortical white matter which were nonspecific, ECHO w/ EF 65%, normal diastole, trivial MV insufficiency, trivial TV insufficiency, RVSP 25 mmHg, therapies per protocol, maintained on asa, FLP obtained and patient placed on statin therapy. Discussed MRI findings with neurology and given possible consideration with history some concern for multiple sclerosis therefore MRI brain with IV contrast obtained per their recommendation and unremarkable for enhancement in these regions therefore plan to discharge to home with follow-up with neurology in the office and further evaluation at that time with possible LP. Patient also given atypical chest pain complaint maintained as noted on telemetry without marked event with unremarkable serial cardiac enzymes and unchanged EKG with unremarkable 08/16/17 stress testing with continuation as already noted on asa, statin addition w/ FLP and normal mag level. Encouraged tobacco cessation. Additional, patient maintained on home BuSpar and Zoloft regimen with encouraged outpatient therapy and continued evaluation. Patient discharged to home in stable condition with follow-up with her PCP within 3-5 days and Neurology within 1-2 weeks to further evaluate non-specific MRI changes and possible TIA. DAY OF DISCHARGE PROGRESS NOTE: Subjective: Patient without acute event overnight per self and nursing report. Patient remains at neurological baseline with no further vision changes or extremity paresthesias or weakness. Patient denies fever, chills, nausea, emesis, abdominal pain, chest pain or dyspnea. Patient agreeable to discharge to home following unremarkable stress testing and MRI without evidence of acute stroke with unspecific white matter foci findings with planned continued evaluation per Neurology. Patient will be discharged with follow-up with primary care physician within 3-5 days in addition to Neurology within 1-2 weeks. Objective: T 98.3, heart rate 78, BP 122/86, respiratory rate 16, 97% on room air. Physical Examination: General: awake, alert, oriented x 3 and cooperative, seated upright in the bed, NAD. Skin: normal color, turgor, no icterus, cyanosis. HEENT: AT/NC, EOMI, PERRLA, MMM. Lungs: CTA bilaterally, moderate effort, mild decrease BL bases, no rales, ronchi or wheezing; Heart: Regular rate and rhythm; no gallop, rub audible. Abdomen: soft, obese, NTTP, ND, normal BS. Extremities: no cyanosis, clubbing, or edema. Neurological: patient awake, alert, oriented x 3; cognitive function appears intact upon questioning,; pupils equally reactive to light and accomodation; cranial nerves II-XII grossly normal, moving all 4 extremities, strength appropriate. Psychiatric: affect appears normal, no acute evidence of depressive or anxiety feelings. Assessment and Plan: Please see hospital summary above. Discharge Activity: Return to Normal Activity May resume sexual activity in: No Restrictions Weight Bearing Status: Weight bearing as tolerated Call your doctor if you observe: Fever of 101 or Higher, Inability to urinate, Inability to have a bowel movement, Shortness of breath, Dizziness, Fainting spells, Chest pain, Uncontrolled pain, - - Any recurrent neurological symptoms or vision changes please contact Dr. Mccurdy office or return to the ED. Home Medications: Medications to take at Discharge Sertraline HCl [Zoloft] 50 mg PO DAILY 08/15/17 busPIRone [Buspar] 7.5 mg PO BID 08/15/17 Aspirin [Aspirin, Baby] 81 mg PO DAILY@0800 #30 tab.chew 08/16/17 Atorvastatin Calcium [Lipitor] 40 mg PO QHS #30 tab 08/16/17 Famotidine [Pepcid] 20 mg PO BID #60 tab 08/16/17 Following Prescrptions Were Given to Patient: Aspirin [Aspirin, Baby] 81 mg PO DAILY@0800 #30 tab.chew Atorvastatin Calcium [Lipitor] 40 mg PO QHS #30 tab Famotidine [Pepcid] 20 mg PO BID #60 tab Primary Care Physician: Mateo Jimenez MD [Primary Care Provider] - Please follow up with your Primary Care Physician in: Follow- up within 3-5 days to review admission. Please Follow Up With: Jefe Mccurdy MD When: Follow-up within 1-2 weeks, may see ASSET COORDINATOR to discuss further evaluation. Patient Instructions: Cholesterol Medications, Low-Fat Cooking Tips, What Is a TIA?, Discharge Instructions for Transient Ischemic Attack (TIA) Disposition: Home Minutes spent on discharge:: 20 Patient Condition:: Fair Medical Necessity - Tobacco Use Smoking Status: Current every day smoker Tobacco Use: Cigarettes Meaningful Use Info Meaningful Use Diagnoses (Choose all that apply): None applicable Code Visit OBSV E AND M: 41533 Observation care discharge 08/16/17 0781 <Electronically signed by Ivy Pratt > Date Ivy Pratt Cosigner Signature (if applicable): Date CC: Ivy Pratt; Mateo Jimenez MD Signed DISCHARGE INSTRUCTION Observed: 08/16/2017 Status: F Source: SHELL 2:29 PM [facility] [place], [place] REPOSITORY [facility] Medical Records Department [address] [place] [address] Instructions for Home/Discharge Instructions 08/16/17 1158 MR#: [id number] Acct: [id number] Name: RICCI GARCIA Rep #: [id number] : 1970 47 From: Ivy Pratt PCP: Mateo Jimenez MD Status: ADM SUSAN - Discharge Diagnoses Current Active Problems: Current Active and Chronic Problems (1) Vision Changes, RLE Weakness/Paresthesias, Resolved secondary to Possible TIA (2) Non-specific MRI Brain scattered foci hyperintensity in the periventricular and subcortical white matter, Unclear Specific Etiology (follow-up MRI Brain w/ Contrast without enhancement) (3) Chest Pain, Non-cardiac, Unclear Specific Etiology, Possibly Anxiety associated (4) Hypokalemia (5) Tobacco Abuse (6) Anxiety and depression (7) Chronic back pain s/p cervical surgery w/ herniated disc: Stable. (8) Obesity You will use the following diet at home:: Cardiac Your food should be the consistency of: Regular Your liquids should be the consistency of: Regular/Thin Discharge Activity: Return to Normal Activity May resume sexual activity in: No Restrictions Weight Bearing Status: Weight bearing as tolerated Call your doctor if you observe: Fever of 101 or Higher, Inability to urinate, Inability to have a bowel movement, Shortness of breath, Dizziness, Fainting spells, Chest pain, Uncontrolled pain, - - Any recurrent neurological symptoms or vision changes please contact Dr. Mccurdy office or return to the ED. Instructions: What Is a TIA?, Discharge Instructions for Transient Ischemic Attack (TIA), Cholesterol Medications, Low-Fat Cooking Tips Additional Instructions: Please continue to take daily baby aspirin therapy and the cholesterol statin medication. You will follow-up with Neurology following discharge given concern for possible transient ischemic attack and noted changes on MRI of the brain (NOT STROKE). Neurology may want to perform additional studies and/or testing which may include evaluating a sample of your cerebrospinal fluid which is obtained with a lumbar puncture, but again this plan and potentional work-up will be decided at your follow- up in their office. Allergies/Adverse Reactions: Allergies No Known Allergies Allergy (Verified 08/15/17 08:14) Medications to take at Discharge Sertraline HCl [Zoloft] 50 mg PO DAILY 08/15/17 busPIRone [Buspar] 7.5 mg PO BID 08/15/17 Aspirin [Aspirin, Baby] 81 mg PO DAILY@0800 #30 tab.chew 08/16/17 Atorvastatin Calcium [Lipitor] 40 mg PO QHS #30 tab 08/16/17 Famotidine [Pepcid] 20 mg PO BID #60 tab 08/16/17 The following prescriptions were given: Aspirin [Aspirin, Baby] 81 mg PO DAILY@0800 #30 tab.chew Atorvastatin Calcium [Lipitor] 40 mg PO QHS #30 tab Famotidine [Pepcid] 20 mg PO BID #60 tab Primary Care Physician: Mateo Jimenez MD [Primary Care Provider] - Please follow up with your Primary Care Physician in: Follow- up within 3-5 days to review admission. Please Follow Up With: Jefe Mccurdy MD When: Follow-up within 1-2 weeks, may see ASSET COORDINATOR to discuss further evaluation. Proposed Discharge Date: 08/16/17 08/16/17 1429 <Electronically signed by Ivy Pratt > Date Ivy Pratt CC: Monique Mccurdy MD; Mateo Jimenez MD BRAIN WITH CONTRAST Observed: 08/16/2017 Status: F Source: SHELL 12:58 PM [facility] [place], [place] REPOSITORY [facility] Imaging Services [address] [place] [address] Brain WITH Contrast MR#: [id number] Acct: [id number] Name: RICCI GARCIA Rep #: [id number] : 1970 F 47 From: Dewey Dela Cruz MD PCP: Mateo Jimenez MD Status: ADM SUSAN Study: Brain WITH Contrast Date of Exam: 08/16/17 Exam# [id number] Ordering Dr: Ivy Pratt STUDY: MRI BRAIN WITH CONTRAST REASON FOR EXAM: Female, 47 years old. CVA. Follow-up MRI TECHNIQUE: Standardized multiplanar fat and water weighted pulse sequences were obtained. 8 ml of Gadavist contrast material was administered intravenously for the contrast portion of the examination. COMPARISON: August 15, 2017 MRI examination brain FINDINGS: Previously noted scattered foci of T2/FLAIR hyperintensity in the periventricular and subcortical white matter demonstrate no significant associated enhancement. Differential considerations remain the same with inflammatory or demyelinating process, vasculitides or accelerated chronic small vessel disease. Small developmental venous anomaly in the right frontal lobe No discrete mass within the orbits. Skull base vascular flow voids are patent. No shift of midline structures or mass effect. Mild mucosal thickening of the ethmoid air cells. IMPRESSION: Redemonstration of scattered foci of T2/FLAIR hyperintensity in the periventricular and subcortical white matter which demonstrate no associated enhancement or restricted diffusion. Differential considerations include inflammatory or demyelinating process, migraine related changes or accelerated chronic small vessel disease. Electronically Signed: Dewey Dela Cruz, at 14:28 EDT Tel , Service support , MRI/Brain WITH Contrast CC: Ivy Pratt; Mateo Jimenez MD Dry Cell Assembly Machine Tender: Signed STRESS TEST ECHO W/ Observed: 08/16/2017 Status: F Source: [place] CONTRAST 12:02 PM [facility] [place], [place] REPOSITORY [facility] Cardiovascular Services [address] [place] [address] Stress Test Echo W/Contrast MR#: [id number] Acct: [id number] Name: RICCI GARCIA Rep #: [id number] : 1970 47 From: Cristhian Gutierres MD Primary Care: Mateo Jimenez MD Status: ADM SUSAN Ordering Dr: Ivy Pratt Sex: F C Version 2 Stress Results Maximum Predicted HR: 172 bpm Target HR: 146 bpm % Maximum Predicted HR: 88 % DurationHeart Rate Stage (mm:ss) (bpm) BP I 3:00 13 7 158/62 II 2:50 15 1 168/88 Recovery 2:50 83 152/62 Recovery 4:50 80 124/76 Stress Duration: 13:30 mm:ss Maximum Stress HR: 151 bpm Baseline Echocardiogram Findings The estimated ejection fraction is 65 %. Stress Echo Wall motion Data Resting WMIntermediate WMStress WM Resting Wall Motion Wall Motion Stress No regional wall motion No regional wall motion abnormalities noted. abnormalities noted. EKG Data Normal intervals are noted. The patient exercised according to the regular Júnior protocol for a total duration of 6:26. The maximum heart rate attained was 157 beats per minute. This was 91% of maximum predicted heart rate. The patient exercised into stage 3 of the Júnior protocol. During stress, there were no ST or T wave changes noted to suggest ischemia. Interpretation Summary The estimated ejection fraction is 65 %. Normal adequate treadmill echocardiogram. Negative for ischemia by EKG and echocardiographic criteria. No anginal symptoms noted. No arrhythmias noted. Appropriate blood pressure response to exercise. Average exercise capacity for age. Test terminated due to leg discomfort. Decreased sensitivity due to poor echo windows requiring Definity enhancement. No complications. Final LVEF=75%. Ordering Physician: Ivy Pratt Eeferring Physician: Mateo Jimenez 08/16/17 1202 Date Cristhian Gutierres MD CC: Ivy Pratt; Mateo Jimenez MD Date Dictated: 08/16/17 0926 Date Transcribed: 08/16/17 1149 Dry Cell Assembly Machine Tender: Signed CBC-COMPLETE BLOOD CNT Collected: 08/16/2017 Status: F Source: SHE[place] NO DIFF 5:54 AM [facility] [place], [place] REPOSITORY TYPE CODE TESTS RESULT OUT OF RANGE REFERENCE UNITS LAB L100.1000 4.4-11.0 K/mm3 Normal WBC 7.8 LAB L100.1200 4.2-5.4 M/mm3 Low RBC 4.16 LAB L100.1300 12.0-15.0 g/dl Normal HGB 13.1 LAB L100.1400 37-47 % Normal HCT 39.3 LAB L100.1500 81-99 fL Normal MCV 94.5 LAB L100.1600 27.0-32.0 pg Normal MCH 31.5 LAB L100.1700 32-36 g/gl Normal MCHC 33.3 LAB L100.1810 11.6-14.6 % Normal RDW CV 12.0 LAB L100.1820 35.1-43.9 fl Normal RDW SD 40.9 LAB L100.1900 150-450 K/mm3 Normal PLT 217 LAB L100.2000 6.2-12.0 fl Normal MPV 9.7 Performed By: #### L100.0500 #### [facility] [place], [address] BASIC METABOLIC Collected: 08/16/2017 Status: F Source: [place] PROFILE (BMP) 5:54 AM [facility] [place] [place] REPOSITORY TYPE CODE TESTS RESULT OUT OF RANGE REFERENCE UNITS LAB L501.0100 74-106 mg/dL Normal GLU 90 Result Comment: Please note revised GLUCOSE reference range effective 2017. LAB L501.1000 7-18 mg/dL Normal BUN 14 LAB L501.1100 0.55-1.02 mg/dL Normal CREAT,SERUM 0.66 Result Comment: The validity of the calculated GFR AND GFRAA in patients over 70 years has not been determined. Clinical correlation is essential. LAB L501.1110 >60 mL/min Normal EST GFR 101 Result Comment: Non- GFR Calc LAB L501.1115 >60 mL/min Normal EST GFR - AA 122 Result Comment: GFR Calc LAB L501.1255 ml/min Normal Estimated CRCL 82.45 LAB L501.1300 10-20 RATIO High BUN/CRE 21.1 LAB L501.2200 8.5-10 mg/dL Normal .1 CA 8.8 LAB L501.5300 136-14 mmol/L Normal 5 NA 142 LAB L501.5600 3.5-5. mmol/L Normal 1 K 4.1 LAB L501.5900 98-107 mmol/L High CL 109 LAB L501.6100 21.0-3 mmol/L Normal 2.0 CO2 25.0 LAB L501.6200 5-15 Normal GAP 8 Performed By: #### L500.2500, L500.4100 #### [facility] [address] [facility]. [place], [place], [id number] LIPID PROFILE Collected: 08/16/2017 Status: F Source: [place] 5:54 AM [facility] [place] [place] REPOSITORY TYPE CODE TESTS RESULT OUT OF RANGE REFERENCE UNITS LAB L501.4900 200 mg/dL High CHOL 243 Result Comment: <200 mg/dL Desirable 200-240 mg/dL Borderline >240 mg/dL High Risk LAB L501.5000 mg/dL High TRIG 229 Result Comment: The drugs N-Acetylcysteine and Metamizole may falsely depress this assay. Serum Triglycerides Reference Interval Normal <150 mg/dL Borderline high 150 - 199 mg/dL High 200 - 499 mg/dL Very High > or = 500 mg/dL LAB L501.6400 mg/dL Normal HDL 47 Result Comment: The drugs N-Acetylcysteine and Metamizole may falsely depress this assay. Reference Range HDL <40 mg/dL Low HDL Cholesterol HDL >or= 60 mg/dL High HDL Cholesterol LAB L501.6500 0-130 mg/dL High LDL 150 LAB L501.6600 5-40 mg/dL High VLDL 46 Performed By: #### L500.2500, L500.4100 #### [facility] [address] [facility]. [place], [place], [id number] PROTHROMBIN TIME W/INR Collected: 08/16/2017 Status: F Source: [place] 5:54 AM [facility] [place] [place] REPOSITORY TYPE CODE TESTS RESULT OUT OF RANGE REFERENCE UNITS LAB L300.4150 11.7-14.9 SECONDS Normal PROTIME 12.2 LAB L300.4200 Normal INR 0.9 Performed By: #### L300.3900, L300.4310 #### [facility] [address] [place], [address] PARTIAL THROMBOPLAST Collected: 08/16/2017 Status: F Source: [place] TIME 5:54 AM [facility] [place] REPOSITORY TYPE CODE TESTS RESULT OUT OF RANGE REFERENCE UNITS LAB L300.4310 24.1-36.2 Seconds Normal PTT 30.2 Performed By: #### L300.3900, L300.4310 #### [facility] [address] [place], [address] TROPONIN-I Collected: 08/15/2017 Status: F Source: SHELL 10:20 PM [facility] [place] [place] REPOSITORY Order Comment: 'TROP' Serial specimen #1, #2, #3, or #4: 4 TYPE CODE TESTS RESULT OUT OF RANGE REFERENCE UNITS LAB L501.4010 <0.06 ng/mL Normal < 0.02 TROPONIN-I Result Comment: TROPONIN-I EXPECTED VALUES <0.05 NEGATIVE 0.06 - 0.59 AT RISK OF [place] > OR = 0.60 SUGGEST [place] Performed By: #### L501.4010 #### [facility] [address] [place], [address] HISTORY AND PHYSICAL Observed: 08/15/2017 Status: F Source: [place] EXAM 4:02 PM [facility] [place] [place] REPOSITORY [facility] Medical Records Department [address] [place] [address] History and Physical 08/15/17 0959 MR#: [id number] Acct: [id number] Name: RICCI GARCIA Rep #: [id number] : 1970 47 From: Ivy Pratt PCP: Mateo Jimenez MD Status: ADM SUSAN Y Location: [place] [address] Problem List (1) Chronic neck pain Status: Chronic (2) HLD (hyperlipidemia) Status: Chronic Qualifiers: Hyperlipidemia type: unspecified Qualified Code(s): E78.5 - Hyperlipidemia, unspecified (3) Anxiety and depression Status: Chronic (4) Obesity (BMI 30.0-34.9) Status: Chronic (5) Tobacco use Status: Chronic (6) Chest pain Status: Acute Qualifiers: Chest pain type: unspecified Qualified Code(s): R07.9 - Chest pain, unspecified (7) TIA (transient ischemic attack) Status: Acute Qualifiers: Transient cerebral ischemia type: unspecified Qualified Code(s): G45.9 - Transient cerebral ischemic attack, unspecified History of Present Illness Date of Admission: 08/15/17 Chief Complaint: Chest Pain, Vision Changes, RLE weakness The patient is a 47 y/o F w/ PMHx: Chronic back pain s/p cervical surgery w/ herniated disc, Obesity, Anxiety and Depression, HLD, Tobacco Use who presents to the [facility] ED on 08/15/17 with history while at work 1 hour WIRELESS ARCHITECT onset L eye lateral vision changes, primarily blurry vision with onset substernal chest dull ache w/ concurrent mild dyspnea, diaphoresis, lightheadedness as well as vague RLE weakness and heaviness sensation with resolution of her vision changes after 20 minutes and resolution of her chest discomfort upon ED presentation. In the ED she initially noted mild RLE heaviness but this resolved following admission. She noted not having eaten for several hours with mild headache but otherwise noted feeling improved. She did note with onset of the vision changes she became extremely anxious and is not sure if the symptoms following were possible secondary to her anxiety. In the ED NIH 0. 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 In the emergency room patient administered aspirin 324 mg p.o. 1. Past Medical History Past Medical History (Chronic Problems): Chronic Problems Chronic neck pain (Chronic) HLD (hyperlipidemia) (Chronic) Anxiety and depression (Chronic) Obesity (BMI 30.0-34.9) (Chronic) Tobacco use (Chronic) Allergies No Known Allergies Allergy (Verified 08/15/17 08:14) Home Medications: Ambulatory Orders Medication Instructions Recorded Sertraline HCl [Zoloft] 50 mg PO DAILY 08/15/17 busPIRone [Buspar] 7.5 mg PO BID 08/15/17 Surgical History: - - Bilateral tubal ligation, tonsillectomy, cervical fusion with hardware. Psychiatric History: Anxiety, Depression PACKAGE MAKER History: No pertinent PACKAGE MAKER history Lives: With Family - Notes her son lives with her. Smoking Status: Current every day smoker Tobacco Use: Cigarettes - One half pack per day tobacco usage. Alcohol: None Drugs: None - *Family History Maternal History Items: - - Patient notes a maternal family history of cancer, unclear type, notes it was rare. Mother also had a history of peptic versus gastric ulcer disease with secondary to hemorrhage. Paternal History Items: - - Father with a history of chronic COPD with tobacco use. Review of Systems Constitutional: Reports: Fatigue. Denies: Chills, Fever, Weight Change HEENT: Denies: Head Aches, Sinus Congestion, Sinus Drainage Cardiovascular: Reports: Chest Pain, Chest Pressure, Light Headedness. Denies: Heaviness, Orthopnea, Palpitations, Syncope Respiratory: Reports: Shortness of Breath. Denies: Cough, Shortness of breath at rest, Sputum production Gastrointestinal: Denies: Abdominal Pain, Nausea, Vomiting Genitourinary: Denies: Dysuria Musculoskeletal: Denies: Joint Pain, Joint Tenderness Skin: Denies: Rash, Wounds Neurological: Reports: Focal weakness, Numbness, Tingling Psychiatric: Reports: Anxiety, Depression. Denies: Homicidal Ideations, Suicidal Ideations Hematologic/ Lymphatic: Denies: Easy Bruising, Easy Bleeding VTE Information - Inpt Only VTE Present on Admission: No VTE Mechan Device Prophylaxis: SCD's VTE Pharm Prophylaxis ordered?: Yes Patient Problems: Active and Suspected Problems Chest pain (Acute) TIA (transient ischemic attack) (Acute) Subjective: Patient seated upright in the bed, no acute distress, notes symptoms continue to remain resolved. Objective: Physical Examination: General: awake, alert, oriented x 3 and cooperative, seated upright in bed in no apparent distress. Skin: normal color, turgor, no icterus, cyanosis. HEENT: AT/NC, EOMI, PERRLA, MMM, no carotid bruits or JVD noted, thyroid appropriate size, no fullness. Lungs: CTA bilaterally, moderate effort, mild decrease BL bases, no rales, ronchi or wheezing. Heart: Regular rate and rhythm; no gallop, rub audible. Abdomen: soft, obese, NTTP, ND, normal BS, no HSM. Extremities: no cyanosis, clubbing, or edema. Neurological: patient awake, alert, oriented x 3; cognitive function intact; pupils equally reactive to light and accomodation; cranial nerves II-XII grossly normal, moving all 4 extremities, no focal deficits, strength preserved, FTN, HTN intact, negative babinski, sensation intact, all thompson of vision intact. Psychiatric: affect appears normal, no acute evidence of depressive or anxiety feelings. - Physical Exam Vital Signs Temp Pulse Resp BP Pulse Ox 97.1 F L 71 17 120/86 H 100 08/15/17 08:09 08/15/17 09:25 08/15/17 09:25 08/15/17 09:25 08/15/17 09:25 Oxygen Flow Rate (L/min) 2 Oxygen Delivery Method Nasal Cannula Weight: 179 lb 14.355 oz Body Mass Index (BMI) 32.8 Laboratory Tests Past 24 Hrs WBC 7.4 RBC 4.54 Hgb 14.3 Hct 42.4 MCV 93.4 MCH 31.5 MCHC 33.7 RDW 12.1 Assessment/Plan Active and Suspected Problems Chest pain (Acute) TIA (transient ischemic attack) (Acute) The patient is a 47 y/o F w/ PMHx: Chronic back pain s/p cervical surgery w/ herniated disc, Obesity, Anxiety and Depression, HLD, Tobacco Use who presents to the [facility] ED on 08/15/17 with history while at work 1 hour WIRELESS ARCHITECT onset L eye lateral vision changes, primarily blurry vision with onset substernal chest dull ache w/ concurrent mild dyspnea, diaphoresis, lightheadedness as well as vague RLE weakness and heaviness sensation with resolution of her vision changes after 20 minutes and resolution of her chest discomfort upon ED presentation. (1) Vision Changes, RLE Weakness, Paresthesias, Resolved secondary to ? TIA: Very atypical presentation, several complaints. ED evaluation unremarkable. Will admit to PCU, will obtain MRI Brain, MRA Head and Neck, ECHO, PT/OT/Speech/Nutrition evaluation per protocol. BP normal upon ED presentation with no HTN Hx, continue to monitor, maintain on asa, add statin w/ AM FLP, fall precautions. TSH, Mag pending. (2) Chest Pain: EKG in ED sinus rhythm with no acute evidence of ischemia, CXR w/ no acute findings, initial trop normal 1. Will maintain on a monitored bed to assure no acute myocardial infarction with serial cardiac enzymes and EKGs. If MRI/MRA as noted unremarkable and cardiac enzymes remain unremarkable will pursue a.m. echo stress testing. FLP in AM. Mag pending. ASA, NG, morphine. (3) Hypokalemia: Admission K+ 3.4, supplementation given, repeat level in AM. (4) Tobacco Abuse: Encouraged cessation, inpatient consultation per RT, NR if desired. (5) Anxiety and depression: Maintain on home BuSpar and Zoloft regimen. Encourage outpatient psychiatry continued evaluation. (6) Chronic back pain s/p cervical surgery w/ herniated disc: Stable. (7) Obesity: Weight loss and lifestyle changes encouraged. (8) DVT Prophylaxis: SCDs, lovenox. Code Visit OBSV E AND M: 40282 Observation care discharge 08/15/17 1602 <Electronically signed by Ivy Pratt > Date Ivy Pratt Cosigner Signature: Date (if applicable) CC: Ivy Pratt; Mateo Jimenez MD Signed TROPONIN-I Collected: 08/15/2017 Status: F Source: [place] 1:10 PM [facility] [place] [place] REPOSITORY Order Comment: 'TROP' Serial specimen #1, #2, #3, or #4: 2 TYPE CODE TESTS RESULT OUT OF RANGE REFERENCE UNITS LAB L501.4010 <0.06 ng/mL Normal < 0.02 TROPONIN-I Result Comment: TROPONIN-I EXPECTED VALUES <0.05 NEGATIVE 0.06 - 0.59 AT RISK OF [place] > OR = 0.60 SUGGEST [place] Performed By: #### L501.4010 #### [facility] [address] [facility] [place], [address] MRA NECK WITHOUT Observed: 08/15/2017 Status: F Source: [place] CONTRAST 12:46 PM [facility] [place] [place] REPOSITORY [facility] Imaging Services [address] [place] [address] MRA Neck without Contrast MR#: [id number] Acct: [id number] Name: RICCI GARCIA Rep #: [id number] : 1970 F 47 From: Feliciano Torres MD PCP: Mateo Jimenez MD Status: ADM SUSAN Study: MRA Neck without Contrast Date of Exam: 08/15/17 Exam# [id number] Ordering Dr: Ivy Pratt STUDY: MRA NECK WITHOUT CONTRAST REASON FOR EXAM: Female, 47 years old. Blurred vision. Dizziness. TECHNIQUE: Source images were obtained, MIPs were performed. The study was performed unenhanced. COMPARISON: None. FINDINGS: RIGHT CAROTID ARTERIES: Normal right common carotid artery (CCA). Normal right common carotid bulb. Normal origin of the right internal carotid (ICA) artery without a hemodynamically significant stenosis. Normal visualized cervical portion of the right internal carotid artery. Normal origin of the right external carotid artery (ECA). LEFT CAROTID ARTERIES: Normal left common carotid artery (CCA). Normal left common carotid bulb. Normal origin of the left internal carotid (ICA) artery without a hemodynamically significant stenosis. Normal visualized cervical portion of the left internal carotid artery. Normal origin of the left external carotid artery (ECA). VERTEBRAL ARTERIES: Normal antegrade flow within the bilateral vertebral artery without a hemodynamically significant stenosis. MRI/MRA Neck without Contrast IMPRESSION: Normal bilateral cervical carotid and vertebral arteries. Electronically Signed: Feliciano Torres MD at 16:55 EDT , Service support , CC: Ivy Pratt; Mateo Jimenez MD Dry Cell Assembly Machine Tender: Signed MRA HEAD ONLY WITHOUT Observed: 08/15/2017 Status: F Source: [place] CONTRAST 12:46 PM [facility] [place] [place] REPOSITORY [facility] Imaging Services [address] [place] [address] MRA Head ONLY without Contrast MR#: [id number] Acct: [id number] Name: RICCI GARCIA Rep #: [id number] : 1970 F 47 From: Feliciano Torres MD PCP: Mateo Jimenez MD Status: ADM SUSAN Study: MRA Head ONLY without Contrast Date of Exam: 08/15/17 Exam# [id number] Ordering Dr: Ivy Pratt STUDY: MRA OF THE HEAD WITHOUT CONTRAST REASON FOR EXAM: Female, 47 years old. Dizziness. TECHNIQUE: 3-D ngfe-by-bxqcan (TOF) imaging was performed with MIPs. The study was performed unenhanced. COMPARISON: None. FINDINGS: Normal bilateral petrous carotid arteries. Normal right cavernous carotid artery with a normal supraclinoid bifurcation. Normal left cavernous carotid artery with a normal supraclinoid bifurcation. Normal right A1 segments of the anterior cerebral artery. Normal left A1 segments of the anterior cerebral artery. Normal intact anterior communicating artery (ACOM). Normal bilateral A2 segments of the anterior cerebral arteries. Normal right M1 and M2 segments of the middle cerebral arteries, with a normal M1 bifurcation. Normal left M1 and M2 segments of the middle cerebral arteries, with a normal M1 bifurcation. Normal right posterior communicating artery (PCOM). Normal left posterior communicating artery (PCOM). Normal bilateral vertebral arteries. Normal basilar artery with a normal basilar bifurcation. The visualized bilateral superior cerebellar (SCA) arteries are normal. Normal bilateral P1, P2 and visualized P3 segments of the posterior cerebral arteries. There is no demonstrated aneurysm of the [place]. There is no major vessel occlusion or hemodynamically significant stenosis. There is no demonstrated abnormality of the visualized brain. MRI/MRA Head ONLY without Contrast IMPRESSION: Normal MRA of the head Electronically Signed: Feliciano Torres MD at 17:01 EDT , Service support , CC: Ivy Pratt; Mateo Jimenez MD [employer] Assembly Machine Tender: Signed BRAIN WITHOUT Observed: 08/15/2017 Status: F Source: [place] CONTRAST 12:46 PM [facility] [place] [place] REPOSITORY [facility] Imaging Services [address] [place] [address] Brain without Contrast MR#: [id number] Acct: [id number] Name: RICCI GARCIA Rep #: [id number] : 1970 F 47 From: Dewey Dela Cruz MD PCP: Mateo Jimenez MD Status: ADM SUSAN Study: Brain without Contrast Date of Exam: 08/15/17 Exam# [id number] Ordering Dr: Ivy Pratt STUDY: MRI BRAIN WITHOUT CONTRAST REASON FOR EXAM: Female, 47 years old. Left-sided blurred vision and dizziness. TECHNIQUE: Standardized multiplanar fat and water weighted pulse sequences were obtained. COMPARISON: None. FINDINGS: No evidence for shift of midline structures, mass effect or compression of the ventricles noted. No acute intra or extra-axial hemorrhage is seen. No abnormal intracranial fluid collections identified. No evidence for cerebellar tonsillar herniation. Pituitary stalk and gland are within normal limits. Optic chiasm are within normal limits. Corpus callosum is within normal limits. No evidence for acute or subacute ischemic insult. No definite evidence for restricted diffusion. Mild mucosal thickening of the ethmoid air cells and the maxillary sinuses. Skull base vascular flow voids are patent. The ventricular system appears unremarkable. Cortical sulci and gyri are within normal limits. Slight asymmetric prominence of the left Meckel's cave noted. Few scattered foci of T2/FLAIR hyperintensity noted in the periventricular and subcortical white matter which are nonspecific in imaging appearance however differential considerations include inflammatory or demyelinating process. Other differential possibilities include migraine-related changes. Postcontrast MR imaging of the brain is suggested. Visualized orbital contents demonstrate no discrete mass. Patient motion artifact somewhat reduces sensitivity of the exam. Extracranial soft tissue structures are essentially within normal limits. IMPRESSION: No evidence for acute or subacute ischemic insult. No evidence for intracranial mass or acute hemorrhage. Few scattered foci of T2/FLAIR hyperintensity noted in the periventricular and subcortical white matter which are nonspecific in imaging appearance however differential considerations include inflammatory or demyelinating process. Other differential possibilities include migraine-related changes. Postcontrast MR imaging of the brain is suggested for further assessment. Electronically Signed: Dewey Dela Cruz, at 21:00 EDT Tel , Service support , MRI/Brain without Contrast CC: Ivy Pratt; Mateo Jimenez MD [employer] Assembly Machine Tender: Signed EMERGENCY DEPARTMENT Observed: 08/15/2017 Status: F Source: [facility] 10:12 AM [facility] [place] [place] REPOSITORY [facility] Medical Records Department [address] [place] [address] Emergency Department Summary 08/15/17 1009 MR#: [id number] Acct: [id number] Name: RICCI GARCIA Rep #: [id number] : 1970 47 From: Keo Reyes DO PCP: Mateo Jimenez MD Status: REG ER - ER Visit Summary Date of Service: 08/15/17 Chief Complaint: [Chest pain] History of Present Illness: The patient is a 47 F [presents to the emergency department with multiple complaints this morning. 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 Patient became hot and sweaty and became very short of breath. Patient does develop some chest discomfort that she has a hard time describing. Patient states the blurry vision resolved after about 20 minutes. Patient does complain of a little bit of a headache now. Patient does not have a history of migraines. Patient also states that her right leg feels somewhat heavy since all this started. Patient still able to ambulate. Patient denies any speech difficulty. Patient has a history of anxiety, high cholesterol, and she is a smoker.] Physical Examination: [Vital signs-blood pressure 177/111, temperature 97.1, heart rate 95, respirations 15, pulse ox 95% on room air HEENT-PERRLA, EOMI. Cranial nerves II through XII grossly intact. TMs clear. Mucous membranes moist. No adenopathy. Cardiovascular-regular rate and rhythm without murmur or ectopy Lungs-clear to auscultation, chest wall stable without crepitus or subcu emphysema Abdomen-normoactive bowel sounds, soft, nontender, no rebound or rigidity, no peritoneal signs. Neuro huls-rgwywh-sfwv and heel rider testing within normal limits, negative Romberg, negative for drift, fundi benign, NIH stroke scale is 0 Extremities-intact 4, normal range of motion, normal pulses, atraumatic] Test Results: [EKG obtained on arrival shows sinus rhythm with a ventricular rate of 87 bpm. CBC with differential was normal. Chemistry is unremarkable. Troponin was less than 0.02. Chest x-ray showed nothing acute other than a benign enchondroma of the left humerus. CT scan of the brain without contrast was normal.] Emergency Department Course and Treatment: Patient received aspirin in the emergency department] Treatment Plan: [Admit for further workup and evaluation] Disposition: [Admit] Impression: [Chest pain Right leg weakness Left eye visual changes-resolved] This note was generated with [employer]rive[employer] software. It may contain incorrect words, spelling, and punctuation that were not noted in review of the chart prior to signing ED Disposition - Plan for ED Patient: Chief Complaint: Chest Pain Referrals: Mateo Jiemnez MD [Primary Care Provider] - What to do if you have Problems For any increased pain, shortness of breath, bleeding, nausea or vomiting, chest pain, or any unexpected problems, contact your Primary Care Provider. Call [facility] ([phone]) or report to the closest Emergency Room. Call 911 if necessary. 08/15/17 1012 <Electronically signed by Keo Reyes DO> Date Keo Reyes DO Cosigner Signature (If Indicated): Date CC: Mateo Jimenez MD CBC W/DIFF, AUTOMATED Collected: 08/15/2017 Status: F Source: [place] 8:35 AM [facility] [place] [place] REPOSITORY TYPE CODE TESTS RESULT OUT OF RANGE REFERENCE UNITS LAB L100.1000 4.4-11.0 K/mm3 Normal WBC 7.4 LAB L100.1200 4.2-5.4 M/mm3 Normal RBC 4.54 LAB L100.1300 12.0-15.0 g/dl Normal HGB 14.3 LAB L100.1400 37-47 % Normal HCT 42.4 LAB L100.1500 81-99 fL Normal MCV 93.4 LAB L100.1600 27.0-32.0 pg Normal MCH 31.5 LAB L100.1700 32-36 g/gl Normal MCHC 33.7 LAB L100.1810 11.6-14.6 % Normal RDW CV 12.1 LAB L100.1820 35.1-43.9 fl Normal RDW SD 40.8 LAB L100.1900 150-450 K/mm3 Normal PLT 244 LAB L100.2000 6.2-12.0 fl Normal MPV 9.4 LAB L100.2100 47-70 % Normal NEUT% 59.7 LAB L100.2200 19-41 % Normal LY% 32.2 LAB L100.2300 0-10 % Normal MONO% 5.4 LAB L100.2400 0-5 % Normal EO% 2.0 LAB L100.2500 0-1 % Normal BASO% 0.4 LAB L100.2550 0.0-0.9 % Normal IM GRAN % 0.300 Result Comment: IG% - Immature Granulocytes (promyelocytes, myelocytes and metamyelocytes) > 1% indicates that a LEFT SHIFT is Present. LAB L100.2620 2.0-7.7 X10 3/uL Normal Absolute Neut 4.4 LAB L100.2720 0.83-4.51 X10 3/ul Normal Absolute Lymph 2.39 Performed By: #### L100.0100 #### [facility] [address] [place], [place], [address] BASIC METABOLIC Collected: 08/15/2017 Status: F Source: [facility] [facility]FILE ([facility]) 8:35 AM [facility] [place] [place] REPOSITORY Order Comment: 'TROP' Serial specimen #1, #2, #3, or #4: 1 TYPE CODE TESTS RESULT OUT OF RANGE REFERENCE UNITS LAB L501.0100 74-106 mg/dL Normal GLU 101 Result Comment: Fasting Glucose result from 100 to 125 mg/dL suggests IMPAIRED HOMEOSTASIS per A.D.A. criteria. Please note revised GLUCOSE reference range effective 2017. LAB L501.1000 7-18 mg/dL Normal BUN 13 LAB L501.1100 0.55-1.02 mg/dL Normal CREAT,SERUM 0.79 Result Comment: The validity of the calculated GFR AND GFRAA in patients over 70 years has not been determined. Clinical correlation is essential. LAB L501.1110 >60 mL/min Normal EST GFR 82 Result Comment: Non- GFR Calc LAB L501.1115 >60 mL/min Normal EST GFR - AA 99 Result Comment: GFR Calc LAB L501.1255 ml/min Normal Estimated CRCL 68.88 LAB L501.1300 10-20 RATIO Normal BUN/CRE 16.4 LAB L501.2200 8.5-10 mg/dL Normal .1 CA 9.3 LAB L501.5300 136-14 mmol/L Normal 5 NA 142 LAB L501.5600 3.5-5. mmol/L Low 1 K 3.4 LAB L501.5900 98-107 mmol/L Normal CL 107 LAB L501.6100 21.0-3 mmol/L Normal 2.0 CO2 24.0 LAB L501.6200 5-15 Normal GAP 11 Performed By: #### L500.2500, L501.4010 #### [facility] [address] [facility] [place], [address] TROPONIN-I Collected: 08/15/2017 Status: F Source: [place] 8:35 AM [facility] [place] [place] REPOSITORY Order Comment: 'TROP' Serial specimen #1, #2, #3, or #4: 1 TYPE CODE TESTS RESULT OUT OF RANGE REFERENCE UNITS LAB L501.4010 <0.06 ng/mL Normal < 0.02 TROPONIN-I Result Comment: TROPONIN-I EXPECTED VALUES <0.05 NEGATIVE 0.06 - 0.59 AT RISK OF [place] > [place] = 0.60 SUGGEST [place] Performed By: #### L500.2500, L501.4010 #### [facility] [address] [facility]. [place], [place], [address] MAGNESIUM Collected: 08/15/2017 Status: F Source: [place] 8:35 AM [facility] [place] [place] REPOSITORY TYPE CODE TESTS RESULT OUT OF RANGE REFERENCE UNITS LAB L501.5200 1.6-2.6 mg/dL Normal MG 1.8 Performed By: #### L501.5200, L501.9520 #### [facility] [address] [place], [address] THYROID STIM HORMONE Collected: 08/15/2017 Status: F Source: [place] (TSH) 8:35 AM [facility] [place] [place] REPOSITORY TYPE CODE TESTS RESULT OUT OF RANGE REFERENCE UNITS LAB 01.9520 0.358-3.74 uIU/mL Normal TSH 1.80 Performed By: #### L501.5200, L501.9520 #### [facility] [address] [place], [address] CHEST 1 VIEW Observed: 08/15/2017 Status: F Source: [place] (PORTABLE) 8:23 AM [facility] [place] [place] REPOSITORY [facility] Imaging Services [address] [facility] [place] [address] Chest 1 View (Portable) MR#: [id number] Acct: [id number] Name: RICCI GARCIA Rep #: [id number] : 1970 F 47 From: Sid Gómez MD PCP: Mateo Jimenez MD Status: REG ER Study: Chest 1 View (Portable) Date of Exam: 08/15/17 Exam# [id number] Ordering Dr: Keo Reyes DO STUDY: X-RAY CHEST REASON FOR EXAM: Female, 47 years old. Chest pain and blurred vision. TECHNIQUE: AP upright portable view. COMPARISON: 04/21/2015. FINDINGS: The lungs are clear and expanded. There is no demonstrated pleural abnormality. Normal size heart. Normal mediastinum and tremayne. Normal visualized pulmonary arteries. Normal visualized aortic arch and descending thoracic aorta. Mild dextroscoliosis of the thoracic spine. Chondroid calcifications in the intramedullary portion of the left proximal humerus are unchanged. This was suggested previously as benign enchondroma. The clavicles, both shoulders and rib cage are within normal limits. There is no demonstrated abnormality of the visualized soft tissue structures of the upper abdomen. RAD/Chest 1 View (Portable) IMPRESSION: 1. Normal x-ray examination of the chest. 2. Probable benign enchondroma in the left proximal humerus. 3. No significant interval changes when compared to 04/21/2015. Electronically Signed: Sid Gómez MD at 8:45 EDT , Service support , CC: Mateo Jimenez MD; Keo Reyes DO Dry Cell Assembly Machine Tender: Signed BRAIN/HEAD WITHOUT Observed: 08/15/2017 Status: F Source: [place] CONTRAST 8:23 AM [facility] [place] [place] REPOSITORY [facility] Imaging Services [address] [place], [place] [address] [address] Brain/Head without Contrast MR#: [id number] Acct: [id number] Name: RICCI GARCIA Rep #: [id number] : 1970 F 47 From: Sid Gómez MD PCP: Mateo Jimenez MD Status: REG ER Study: Brain/Head without Contrast Date of Exam: 08/15/17 Exam# [id number] Ordering Dr: Keo Reyes DO STUDY: CT BRAIN WITHOUT CONTRAST REASON FOR EXAM: Female, 47 years old. Dizziness and blurred vision. RADIATION DOSAGE (If Supplied By Facility): CTDIvol = ( 44.99 ) mGy, DLP = ( 745.49 ) mGycm TECHNIQUE: Transaxial CT imaging of the brain was performed without administration of intravenous contrast material. Coronal and sagittal reconstructions were also performed. Individualized dose optimization techniques were used for this CT. COMPARISON: None. FINDINGS: Normal soft tissue structures. Normal calvarium. Normal size ventricles and extra-axial spaces for the patient's age. Normal white matter tracts of the cerebral hemispheres. Normal basal ganglia and thalami. Normal brainstem. Normal cerebellum. There is no intracranial hemorrhage. There are no findings of an acute ischemic infarction. Normal visualized paranasal sinuses. CT/Brain/Head without Contrast IMPRESSION: Normal unenhanced CT scan of the brain. Electronically Signed: Sid Gómez MD at 9:32 EDT , Service support , CC: Mateo Jimenez MD; Keo Reyes DO Dry Cell Assembly Machine Tender: Signed PAP I-G W/RFX HRHPV Collected: 07/02/2017 Status: F Source: [place] 10:20 PM [facility] [place] [place] REPOSITORY Order Comment: CYTOLOGY INFORMATION: - CLINICAL INFORMATION: HYSTERECTOMY - DATE LMP/MENOPAUSE: LMP - COLLECTION VIAL: Thin Prep Vial - PACKAGE MAKER SOURCE: VAGINAL - COLLECTION TECHNIQUE: BRUSH/SPATULA Specimen Comment: [id number] Specimen Comment: No. of containers..01 ThinPrep Vial TYPE CODE TESTS RESULT OUT OF RANGE REFERENCE UNITS LAB L7400.0800 . Normal DIAGN Comment Result Comment: NEGATIVE FOR INTRAEPITHELIAL LESION AND MALIGNANCY. PREDOMINANCE OF COCCOBACILLI CONSISTENT WITH SHIFT IN VAGINAL ENA IS PRESENT. LAB L7400.0900 . Normal ADEQ Comment Result Comment: Satisfactory for evaluation. Endocervical and/or squamous metaplastic cells (endocervical component) are present. LAB L7400.1400 . Normal PERFORM Comment Result Comment: Aniyah Yu, Academic Vice President (ASCP) LAB L7400.1720 . Normal Path prov. Comment ICD9 Result Comment: R87.5 LAB L7400.2575 . Normal TEST METHOD Comment Result Comment: This liquid based ThinPrep(R) pap test was screened with the use of an image guided system. LAB L7400.2600 . Normal . COMM LAB L7400.2700 . Normal PAPSMR Comment Result Comment: The Pap smear is a screening test designed to aid in the detection of premalignant and malignant conditions of the uterine cervix. It is not a diagnostic procedure and should not be used as the sole means of detecting cervical cancer. Both false-positive and false-negative reports do occur. LAB L7400.2800 . Normal HPV RFLX Comment Result Comment: The HPV DNA reflex criteria were not met with this specimen result therefore, no HPV testing was performed. Performed at: [facility] [place] [id number] Center Machine Set Up Operator: Gladys Birch MD, Phone: [phone] Performed By: #### L7400.0350 #### [facility] (refer to report for specific site) refer to report for address and phone number URINALYSIS, COMPLETE Collected: 05/14/2017 Status: F Source: [place] 2:46 PM [facility] [place] [place] REPOSITORY Order Comment: How was Urine Obtained? CLEAN CATCH TYPE CODE TESTS RESULT OUT OF RANGE REFERENCE UNITS LAB L400.3000 Yellow COLOR Normal Yellow LAB L400.3050 Clear Normal CLARITY Clear LAB L400.3200 Normal mg/dl Normal GLUCOSE, UR Normal LAB L400.3300 Negative mg/dL Normal BILIRUBIN URINE Negative LAB L400.3400 Negative mg/dl Normal KETONE UR Negative LAB L400.3465 1.002-1.030 Normal SP.GR. DIPSTX 1.020 LAB L400.3550 5.0 - 8.0 pH UR Normal 5.0 LAB L400.3600 Negative mg/dl PROT Normal DIPSTX Negative LAB L400.3700 Normal mg/dl Normal UROBILI Normal LAB L400.3750 Negative Normal NITRITE UR Negative LAB L400.3780 Negative /ul High 10 OCCULT BLOOD-UR LAB L400.3800 Negative /ul LEUK Normal ESTERASE Negative LAB L400.4050 0-5 /hpf WBC Normal 0-5 SEEN LAB L400.4100 0-5 /hpf 0 Normal RBC-UA SEEN LAB L400.4150 5-10 /hpf SQUAM Normal EPI 0-5 SEEN LAB L400.4300 None Seen /hpf 0 Normal BACTERIA SEEN LAB L400.4350 <or=2+ /hpf 0 Normal MUCUS, URINE SEEN Performed By: #### L400.0001 #### [facility] [address] [place], [address] CBC W/DIFF, AUTOMATED Collected: 05/14/2017 Status: F Source: [place] 2:45 PM [facility] [place] [place] REPOSITORY Order Comment: Order Date: 05/14/17 Order Info: [id number] - CBCD Order Info: [id number] - SED TYPE CODE TESTS RESULT OUT OF RANGE REFERENCE UNITS LAB L100.1000 4.4-11.0 K/mm3 Normal WBC 9.3 LAB L100.1200 4.2-5.4 M/mm3 Normal RBC 4.46 LAB L100.1300 12.0-15.0 g/dl Normal HGB 13.9 LAB L100.1400 37-47 % Normal HCT 41.9 LAB L100.1500 81-99 fL Normal MCV 93.9 LAB L100.1600 27.0-32.0 pg Normal MCH 31.2 LAB L100.1700 32-36 g/gl Normal MCHC 33.2 LAB L100.1810 11.6-14.6 % Normal RDW CV 12.2 LAB L100.1820 35.1-43.9 fl Normal RDW SD 41.2 LAB L100.1900 150-450 K/mm3 Normal PLT 247 LAB L100.2000 6.2-12.0 fl Normal MPV 9.7 LAB L100.2100 47-70 % Normal NEUT% 65.8 LAB L100.2200 19-41 % Normal LY% 25.9 LAB L100.2300 0-10 % Normal MONO% 5.8 LAB L100.2400 0-5 % Normal EO% 2.2 LAB L100.2500 0-1 % Normal BASO% 0.2 LAB L100.2550 0.0-0.9 % Normal IM GRAN % 0.100 Result Comment: IG% - Immature Granulocytes (promyelocytes, myelocytes and metamyelocytes) > 1% indicates that a LEFT SHIFT is Present. LAB L100.2620 2.0-7.7 X10 3/uL Normal Absolute Neut 6.1 LAB L100.2720 0.83-4.51 X10 3/ul Normal Absolute Lymph 2.41 Performed By: #### L100.0100, L101.9900, L500.4050, L500.4100, L501.9520, L505.7010 #### [facility] [address] [place], [address] #### L3100.5475 #### [facility] (refer to report for specific site) refer to report for address and phone number ERYTHROCYTE SED RATE Collected: 05/14/2017 Status: F Source: [facility] Order Comment: Order Date: 05/14/17 Order Info: [id number] - CBCD Order Info: [id number] - SED TYPE CODE TESTS RESULT OUT OF RANGE REFERENCE UNITS LAB L102.0000 0-20 mm/hr Normal SED RATE 6 Performed By: #### L100.0100, L101.9900, L500.4050, L500.4100, L501.9520, L505.7010 #### [facility] [address] [place], [place], [address] #### L3100.5475 #### [facility] (refer to report for specific site) refer to report for address and phone number COMPREHENSIVE METABOLIC Collected: 05/14/2017 Status: F [facility] [place] [place] REPOS[place] Order Comment: Order Date: 05/14/17 Order Info: [id number] - CMP Order Info: [id number] - LIPID Order Info: [id number] - TSH Order Info: [id number] - RA TYPE CODE TESTS RESULT OUT OF RANGE REFERENCE UNITS LAB L501.0100 70-110 mg/dL Normal GLU 88 LAB L501.1000 7-18 mg/dL Normal BUN 10 LAB L501.1100 0.55-1.02 mg/dL Normal 0.70 CREAT,SERUM Result Comment: The validity of the calculated GFR AND GFRAA in patients over 70 years has not been determined. Clinical correlation is essential. LAB L501.1110 >60 mL/min Normal EST GFR 94 Result Comment: Non- GFR Calc LAB L501.1115 >60 mL/min Normal EST GFR - AA 114 Result Comment: GFR Calc LAB L501.1300 10-20 RATIO Normal BUN/CRE 14.2 LAB L501.1500 6.4-8.2 g/dL T Normal PROT 7.8 LAB L501.1800 3.4-5.0 g/dL Normal ALB 4.3 Result Comment: Please note revised Albumin AND Globulin reference range effective 2017. LAB L501.1950 2.2-4.2 g/dL Normal GLOB 3.5 LAB L501.2000 0.9-2.4 RATIO Normal A/G 1.2 LAB L501.2200 8.5-10.1 mg/dL Normal CA 9.2 LAB L501.4100 15-37 U/L Normal AST 15 LAB L501.4305 45-117 U/L Normal ALK P 52 LAB L501.4405 12-78 U/L Normal ALT 37 LAB L501.4600 0.20-1.00 mg/dL Normal T BILI 0.40 LAB L501.5300 136-145 mmol/L Normal NA 140 LAB L501.5600 3.5-5.1 mmol/L Normal K 3.5 LAB L501.5900 98-107 mmol/L Normal CL 104 LAB L501.6100 21.0-32.0 mmol/L Normal CO2 27.0 LAB L501.6200 5-15 Normal GAP 9 Performed By: #### L100.0100, L101.9900, L500.4050, L500.4100, L501.9520, L505.7010 #### [facility] [address]. [place], [place], [address] #### L3100.5475 #### [facility] (refer to report for specific site) refer to report for address and phone number LIPID PROFILE Collected: 05/14/2017 Status: F Source: [place] 2:45 PM [facility] [place] [place] REPOSITORY Order Comment: Order Date: 05/14/17 Order Info: [id number] - CMP Order Info: [id number] - LIPID Order Info: 3016-3 - TSH Order Info: 11570-0 - RA TYPE CODE TESTS RESULT OUT OF RANGE REFERENCE UNITS LAB L501.4900 200 mg/dL High CHOL 285 Result Comment: <200 mg/dL Desirable 200-240 mg/dL Borderline >240 mg/dL High Risk LAB L501.5000 mg/dL High TRIG 380 Result Comment: The drugs N-Acetylcysteine and Metamizole may falsely depress this assay. Serum Triglycerides Reference Interval Normal <150 mg/dL Borderline high 150 - 199 mg/dL High 200 - 499 mg/dL Very High > or = 500 mg/dL LAB L501.6400 mg/dL Normal HDL 49 Result Comment: The drugs N-Acetylcysteine and Metamizole may falsely depress this assay. Reference Range HDL <40 mg/dL Low HDL Cholesterol HDL >or= 60 mg/dL High HDL Cholesterol LAB L501.6500 0-130 mg/dL High LDL 160 LAB L501.6600 5-40 mg/dL High VLDL 76 Performed By: #### L100.0100, L101.9900, L500.4050, L500.4100, L501.9520, L505.7010 #### [facility] [address] [place], [place], [id number] #### L3100.5475 #### [facility] (refer to report for specific site) refer to report for address and phone number THYROID STIM HORMONE Collected: 05/14/2017 Status: F Source: [place] (TSH) 2:45 PM [facility] [place] [place] REPOSITORY Order Comment: Order Date: 05/14/17 Order Info: 0786- - CMP Order Info: [id number] - LIPID Order Info: 3013 - TSH Order Info: 69895-7 - RA TYPE CODE TESTS RESULT OUT OF RANGE REFERENCE UNITS LAB L501.9520 0.358-3.74 uIU/mL Normal TSH 1.86 Performed By: #### L100.0100, L101.9900, L500.4050, L500.4100, L501.9520, L505.7010 #### [facility] [address] [facility]. [place], [place], [id number] #### L3100.5475 #### [facility] (refer to report for specific site) refer to report for address and phone number RHEUMATOID FACTOR Collected: 05/14/2017 Status: F Source: [place] 2:45 PM [facility] [place] [place] REPOSITORY Order Comment: Order Date: 05/14/17 Order Info: 0786- - CMP Order Info: [id number] - LIPID Order Info: 3016-3 - TSH Order Info: 58577-7 - RA TYPE CODE TESTS RESULT OUT OF RANGE REFERENCE UNITS LAB L505.7010 <15 IU/mL Normal RHEUMATOID FAC < 10.0 Performed By: #### L100.0100, L101.9900, L500.4050, L500.4100, L501.9520, L505.7010 #### [facility] [address] [facility] [place], [place], [address] #### L3100.5475 #### [facility] (refer to report for specific site) refer to report for address and phone number ANTINUCLEAR ANTIBODIES Collected: 05/14/2017 Status: F Source: [place] 2:45 PM [facility] REPOSITORY Order Comment: Order Date: 05/14/17 Order Info: [id number] - RYANN TYPE CODE TESTS RESULT OUT OF RANGE REFERENCE UNITS LAB L3100.5475 Negative Normal Negative RYANN-DIRECT Result Comment: Performed at: [facility] [id number] Center Machine Set Up Operator: Teddy Naqvi PhD, Phone: [phone] Performed By: #### L100.0100, L101.9900, L500.4050, L500.4100, L501.9520, L505.7010 #### [facility] [address] [place], [place], [address] #### L3100.5475 #### [facility] (refer to report for specific site) refer to report for address and phone number CRP Collected: 05/14/2017 Status: F Source: [place] 2:45 PM [facility] REPOSITORY Order Comment: Order Date: 05/14/17 Order Info: [id number] - CMP Order Info: [id number] - LIPID Order Info: [id number] - TSH Order Info: 07368-8 - RA TYPE CODE TESTS RESULT OUT OF RANGE REFERENCE UNITS LAB L501.6710 0.0-3.0 mg/L Normal < 2.90 C-REACTIVE PROT Result Comment: C-Reactive Protein (CRP) provides useful information for the diagnosis, therapy and monitoring of inflammatory processes and associated diseases. For the evaluation of Relative Risk for Cardiovascular Disease, a High Sensitivity CRP (HSCRP) should be ordered. Performed By: #### L501.6710 #### [facility] [address] [place], [place], [address] ALLERGIES ALLERGIES DATE TYPE / CODE NAME / CODE REACTION SEVERITY SOURCE 09/10/2017 Drug No Known Unknown [facility] Allergy/4160 Allergies/F00 Hospital 24672(SNOMED 7786706(RXNOR Repository CT) M) ENCOUNTERS ENCOUNTERS ADMIT/DISCHARGE ACCOUNT ADMITTING ENCOUNTER LOCATION SOURCE NUMBER CLASS 04/07/[id number] [place] [address] [facility] ing:MTRAD Repository 03/27/[id number] [place] [address] [place] [address] [facility] ing:HPRAD Repository 03/27/2018/ [id number] Ambulatory BMSBuilding:B [place] 8 0 [place] Repository 02/03/[id number] [place] [address] [facility] ing:PSN Repository 01/28/[id number] [place] 2 [facility] ing:MFPLAB Repository 09/10/[id number] [place] [address] [facility] ing:RAD Repository 08/26/[id number] [place] [address] [facility] ing:LAB Repository 08/16/2017/ [id number] Ambulatory BMSBuilding:W [place] 8 0 [facility] Repository 08/16/2017/ [id number] Ambulatory BMSBuilding:W [address] [place] 8 5 [facility] Repository 08/15/2017/ [id number] Ivy Pratt Ambulatory [place] 8 9 [facility] ing:PCURoom: Repository [id number]: 1 08/15/2017 [id number] Ivy Pratt Ambulatory BMSBuilding:B [address] [place] 8 [place] Repository 08/15/2017 [id number] Ivy Pratt Ambulatory BMSBuilding:B [place] 1 [facility] Repository 07/02/[id number] [place] [address] [facility] ing:LABSPEC Repository 05/14/[id number] [place] [address] [place] 9 [facility] ing:MFPLAB Repository PAYERS PAYERS ENCOUNTER GUARANTOR PAYER SUBSCRIBER SOURCE 04/07/2018 RICCI Lal [id number] Primary RICCI S VASDOB: [place] BRISENOOOERWIN, Insurance:[facility] [id number] [address]Oam: mayo Number: [facility] [id number] Repository (HP) Date:2018-04-07[address]ATTN: [place] [address]EE: 04/07/2018 Secondary NOT GIVENUNK [place] Insurance:SELF PAY [facility] Number: Effective Repository Date:2018-04-07 03/27/2018 RICCI S [id number] Primary RICCI S VASDOB: [place] HE[place] RDWOOSTER, Insurance:CARESOURCEP [id number] [facility] [place] [address]Wch: olicy Number: Hospital [id number] Repository (HP) Date:2018-03-27[address]ATTN: [place] [address]RD: 03/27/[address] [place] Insurance:SELF PAY [facility] Number: Effective Repository Date:2018-03-27 03/27/2018 RICCI S [id number] Primary RICCI S VASDOB: [place] HEYL RDWFROILANSTER, Insurance:CARESOURCEP [id number] [facility] [place] [address]Hob: olicy Number: Hospital [id number] Repository (HP) Date:2018-03-19[address]ATTN: [place] [address]PO: 03/27/[address] [place] Insurance:SELF PAY Community [facility] Number: Effective Repository Date:2018-03-26 02/03/2018 RICCI S [id number] Primary RICCI S VASDOB: [place] HE[place] RDWFROILANSTER, Insurance:CARESOURCEP [id number] [facility] [place] [address]Mnx: olicy Number: Hospital [id number] Repository (HP) Date:2017-10-14[address]ATTN: [place] [address]DB: 02/03/2018 Secondary NOT GIVENUNK [place] Insurance:SELF PAY Community [facility] Number: Effective Repository Date:2017-10-14 01/28/2018 RICCI S [id number] Primary RICCI S VASDOB: [place], Insurance:CARESOURCEP [id number] Critical access hospital [address]Nin: olicy Number: Hospital [id number] Repository (HP) Date:2018-01-28[address]ATTN: [place] [address]NU: 01/28/2018 Secondary NOT GIVENUNK [place] Insurance:SELF PAY [facility] Number: Effective Repository Date:2018-01-28 09/10/2017 RICCI S [id number] Primary RICCI S VASDOB: [place] HE[place] RDW[place]ER, Insurance:CARESOURCEP [id number] Critical access hospital [address]Quc: olicy Number: [facility] [id number] Repository (HP) Date:2017-08-27[address]ATTN: [place] [address]ZG: 09/10/2017 Secondary NOT GIVENUNK [place] Insurance:SELF PAY Community [facility] Number: Effective Repository Date:2017-08-27 08/26/2017 RICCI S [id number] Primary RICCI S VASDOB: [place] R[place], Insurance:CARESOURCEP [id number] Critical access hospital [address]Qus: olicy Number: Hospital [id number] Repository (HP) Date:2017-08-26[address]ATTN: [place] [address]NY: 08/26/[address] [place] Insurance:SELF PAY Community [facility] Number: Effective Repository Date:2017-08-26 08/16/2017 RICCI S [id number] Primary RICCI S VASDOB: [place], Insurance:CARESOURCEP [id number] Critical access hospital [address]Hor: olicy Number: [facility] [id number] Repository (HP) Date:2017-08-[address]ATTN: [place] [address]DO: 08/16/[address] [place] Insurance:SELF PAY Community [facility] Number: Effective Repository Date:2017-08-16 08/16/2017 RICCI S [id number] Primary RICCI S VASDOB: [place] HE[place] RDW[place]ER, Insurance:CARESOURCEP [id number] Critical access hospital [address]Sdh: olicy Number: [facility] [id number] Repository (HP) Date:2017-08-[address]ATTN: [place] [address]MY: 08/16/[address] [place] Insurance:SELF PAY [facility] Number: Effective Repository Date:2017-08-16 08/15/2017 RICCI S [id number] Primary RICCI S VASDOB: [place] R[place], Insurance:CARESOURCEP [id number] [facility] [place] [address]Quk: olicy Number: Hospital [id number] Repository (HP) Date:2017-08-[address]ATTN: [place] [address]PZ: 08/15/[address] [place] Insurance:SELF PAY Community [facility] Number: Effective Repository Date:2017-08-15 08/15/2017 RICCI S [id number] Primary RICCI S VASDOB: [place] RDW[place], Insurance:CARESOURCEP [id number] [facility] [place] [address]Axf: olicy Number: [facility] [id number] Repository (HP) Date:2017-08-15[address]ATTN: [place] [address]QT: 08/15/[address] [place] Insurance:SELF PAY [facility] Number: Effective Repository Date:2017-08-15 08/15/2017 RICCI S [id number] Primary RICCI S VASDOB: [place] ROSALVAYL CASEYER, Insurance:CARESOURCEP [id number] [facility] [place] [address]Rgn: olicy Number: Hospital [id number] Repository (HP) Date:2017-08-15[address]ATTN: [place] [address]JO: 08/15/2017 Secondary NOT GIVENUNK [place] Insurance:SELF PAY [facility] Number: Effective Repository Date:2017-08-15 07/02/2017 RICCI S [id number] Primary RICCI S VASDOB: Lane City[place] PEÑAER, Insurance:CARESOURCEP [id number] [facility] [place] [address]Mvl: olicy Number: [facility] [id number] Repository (HP) Date:2017-07-02[address]ATTN: [place] [address]SU: 07/02/[address] [place] Insurance:SELF PAY [facility] Number: Effective Repository Date:2017-07-02 05/14/2017 RICCI S [id number] Primary RICCI S VASDOB: [place] ROSALVAYL RDSERVANDOER, Insurance:CARESOURCEP [id number] [facility] [place] [address]Egn: olicy Number: Hospital [id number] Repository (HP) Date:2017-05-14[address]ATTN: [place] [address]CF: 05/14/[address] [place] Insurance:SELF PAY [facility] Number: Effective Repository Date:2017-05-14
== END ==
PROVIDERS: Family Provider Family Medicine; PCP Family Medicine; Referring Provider Family Medicine; Visit Provider Family Medicine
DX: M23.8X9 Other internal derangements of unspecified knee (principal)
CPT/HCPCS: 73564

== ENCOUNTER 2018-05-27 07:13 | Day surgery (SDC) | payer MEDICAID, SELFPAY ==
[2017-09-10 09:14] VITALS: BMI 31.0
[2018-05-27] VITALS (7 sets, daily range): BP systolic 106–130; BP diastolic 76–89; PULSE 72–82; RESP 16–18; TEMP 36.6–37.1; O2SAT 96–99; BMI 34.7
[2018-05-27] MEDS: Cefazolin 2 GM in 0.9% Normal Saline 100 ML IV (09:39)
[2018-05-27] MEDS: Bupiv/Epi 0.5% Mpf 30 ML Vial (10:05)
--- NOTE | 2018-05-27 10:37 | PCM.DC.ORTHO ---
Discharge Diet: No Restrictions Additional Instructions: keep dressing clean and dry, do not remove for 48hrs. then may remove and begin showering daily but do not submerge. do not lift push or pull more then 1/2 lb with operative hand. encourage finger and wrist range of motion. Allergies/Adverse Reactions: Allergies No Known Allergies Allergy (Verified 05/20/18 08:15) Medications to take at Discharge Sertraline HCl [Zoloft] 50 mg PO DAILY 08/15/17 busPIRone [Buspar] 7.5 mg PO BID 08/15/17 Atorvastatin Calcium [Lipitor] 40 mg PO QHS 05/20/18 Verapamil HCl [Verapamil Sr] 120 mg PO DAILY 05/20/18 Hydrocodone Bitart/Apap 5-325 [[place] 5MG-325MG] 1 - 2 tablet PO Q4H PRN PRN #20 tablet 05/27/18 The following prescriptions were given: Hydrocodone Bitart/Apap 5-325 [[place] 5MG-325MG] 1 - 2 tablet PO Q4H PRN PRN #20 tablet PRN Reason: Pain Primary Care Physician: Mateo Jimenez MD [Primary Care Provider] - Test Results: Test results from this visit will be discussed in further detail at your follow-up appointment, if applicable. Please Follow Up With: Vijay Lindquist DO - 2 wks Proposed Discharge Date: 05/27/18
--- NOTE | 2018-05-27 10:40 | DCINST_ITS ---
Discharge Diet: No Restrictions Additional Instructions: keep dressing clean and dry, do not remove for 48hrs. then may remove and begin showering daily but do not submerge. do not lift push or pull more then 1/2 lb with operative hand. encourage finger and wrist range of motion. Allergies/Adverse Reactions: Allergies No Known Allergies Allergy (Verified 05/20/18 08:15) Medications to take at Discharge Sertraline HCl [Zoloft] 50 mg PO DAILY 08/15/17 busPIRone [Buspar] 7.5 mg PO BID 08/15/17 Atorvastatin Calcium [Lipitor] 40 mg PO QHS 05/20/18 Verapamil HCl [Verapamil Sr] 120 mg PO DAILY 05/20/18 Hydrocodone Bitart/Apap 5-325 [[place] 5MG-325MG] 1 - 2 tablet PO Q4H PRN PRN #20 tablet 05/27/18 The following prescriptions were given: Hydrocodone Bitart/Apap 5-325 [[place] 5MG-325MG] 1 - 2 tablet PO Q4H PRN PRN #20 tablet PRN Reason: Pain Primary Care Physician: Mateo Jimenez MD [Primary Care Provider] - Test Results: Test results from this visit will be discussed in further detail at your follow- up appointment, if applicable. Please Follow Up With: Vijay Lindquist DO - 2 wks Proposed Discharge Date: 05/27/18
--- NOTE | 2018-05-27 10:42 | PCM.OPRPT ---
Report of Operation Date of Procedure: 05/27/18 Description of Surgical Findings:: Preoperative diagnosis; left carpal tunnel syndrome Postoperative diagnosis; same Anesthesia: Local with MAC Tourniquet time; 15 minutes Indication for procedure; This is a 48-year-old female with long-standing symptoms consistent with carpal tunnel syndrome the patient did have electrodiagnostic evidence of this and has failed conservative treatment. Risks benefits and alternatives were reviewed including risks of bleeding infection nerve artery tissue damage need for further surgery and continued pain and symptoms, hypersensitivity to scar and Pillar pain. Procedure; The patient was met in the preoperative holding area the operative extremity was identified by both patient and physician and was marked the patient was met by anesthesia and brought back to the operating room and transferred to the operating table in the supine position. Aanesthesia was started. A well-padded tourniquet was placed on the left upper extremity. The patient was prepped and draped in the usual sterile fashion. A timeout was called to ensure the proper patient procedure and extremity were being contemplated. 0.5 percent Marcaine with epinephrine was injected into the incisional area. An Esmarch was used to exsanguinate the extremity. The tourniquet was inflated to 250 mmHg. A midline incision was made with a 15 blade scalpel between the thenar and hypothenar eminence. This was carried down through the skin and subcutaneous tissue. Ronal retractors were then used, a deep blade scalpel was used to make a deep incision in the palmar aponeurosis. The ronal retractors were then placed deep to this and the transverse carpal ligament was identified a perforation was made with a scalpel and a Littler scissors were used to complete the release of the transverse carpal ligament distally under direct visualization with the tips facing ulnarly until the perivascular fat was reached. Then turning our attention proximally using a tension slide technique the proximal extent of the transverse carpal ligament was released . There was noted to be hourglass configuration to the median nerve without other findings. The wound was thoroughly irrigated and was closed with 4-0 prolene vertical mattress stitches. Dressing was applied in the form of xeroform 4 x 4, web roll and an chip wrap. Tourniquet was let down there is no intraoperative complications patient tolerated the procedure well and was transferred to the PACU. All counts were correct.
== END 2018-05-27 11:20 | disposition home or self-care (01) ==
LOC: SDC 07:14 → AC 07:15
PROVIDERS: Family Provider Family Medicine; PCP Family Medicine; Referring Provider Orthopaedic Surgery; Visit Provider Orthopaedic Surgery
PROC: (CPT 64721; principal; 2018-05-27 08:45)
DX: G56.02 Carpal tunnel syndrome, left upper limb (principal); F41.9 Anxiety disorder, unspecified; E78.00 Pure hypercholesterolemia, unspecified; F32.9 Major depressive disorder, single episode, unspecified; Z79.899 Other long term (current) drug therapy
CPT/HCPCS: 01810; 64721; J7120

== ENCOUNTER → 2019-04-01 14:56 | Outpatient (CLI) | payer MEDICAID, SELFPAY ==
[2018-05-27 07:32] VITALS: BMI 34.7
--- NOTE | 2019-04-01 15:00 | RAD_ITS ---
STUDY: X-RAY - CERVICAL SPINE REASON FOR EXAM: Female, 49 years old. back pain, neck surgery 3 years ago TECHNIQUE: 5 view(s) of the cervical spine were obtained. COMPARISON: 08/09/2015 FINDINGS: Bilateral posterior lateral mass fusions at the C3-C6 levels. Bilateral laminectomies at those levels. Reversal of cervical lordosis could be related to positioning or muscle spasm. Degenerative disc disease at the C4-5 level. Multilevel facet disease. Moderate osseous foraminal stenosis is noted on the left at the C3-4 level. Prevertebral soft tissues are normal. Base of dens is intact. RAD/Cerv Spine 4 or 5 Views IMPRESSION: Multilevel degenerative disease and postoperative change as described. Moderate osseous foraminal stenosis is noted on the left at the C3-4 level. Reversal of lordosis may be related to positioning or muscle spasm. Electronically Signed: Tay Aburto MD at 16:35 EST Tel , Service support ,
--- NOTE | 2019-04-01 15:00 | RAD_ITS ---
STUDY: X-RAY - THORACIC SPINE REASON FOR EXAM: Female, 49 years old. back pain, neck surgery 3 years ago TECHNIQUE: 2 view(s) of the thoracic spine were obtained. COMPARISON: None. FINDINGS: Normal kyphosis of the thoracic spine. Mild dextroconvex scoliosis. Diffuse spondylosis. No compression deformity. The soft tissue structures are unremarkable. Cervical spine fusions and laminectomies. RAD/Thoracic Spine 2 Views IMPRESSION: Mild dextroconvex scoliosis. Diffuse spondylosis. Electronically Signed: Tay Aburto MD at 16:39 EST Tel , Service support ,
== END ==
PROVIDERS: Family Provider Family Medicine; PCP Family Medicine; Referring Provider Family Medicine; Visit Provider Family Medicine
DX: Z98.890 Other specified postprocedural states (principal)
CPT/HCPCS: 72050; 72070

== ENCOUNTER → 2019-06-24 09:09 | Outpatient (CLI) | payer MEDICAID, SELFPAY ==
[2019-06-24 09:05] VITALS: BMI 34.7
--- NOTE | 2019-06-24 09:09 | RAD_ITS ---
HISTORY: PAIN EXAM:Right Knee COMPARISON: April 07, 2018 FINDINGS: # of images incl. paperwork: 4 Lateral tilting to the patella is similar. Tiny knee effusion is similar. The joint spaces are well-maintained. No fracture. . RAD/Knee 4 or More Views IMPRESSION: No acute disease to the knee. Chronic lateral tilting of the patella with narrowing of the lateral patella and trochlear articular distance. Tiny knee effusion.. at 2050 Reported and signed by: Boy Varner MD Electronically Signed: Boy Varner MD at 20:49 EST Tel , Service support ,
== END ==
PROVIDERS: PCP Family Medicine; Referring Provider Physician Assistant; Visit Provider Physician Assistant
DX: M25.562 Pain in left knee (principal)
CPT/HCPCS: 73564

== ENCOUNTER → 2019-07-14 10:43 | Outpatient (CLI) | payer MEDICAID, SELFPAY ==
[2018-05-27 07:32] VITALS: BMI 34.7
[2019-06-24 09:05] VITALS: BMI 34.7
--- NOTE | 2019-07-14 12:35 | NEURO ---
NCS and/or EMG Patient Report Ordering Doctor: Mateo Jimenez DATE OF SERVICE: 07/14/19 Maryellen Garnica is a 49-year-old female presents for electrodiagnostic testing of the upper limbs. She reports bilateral upper limb pain and numbness. She has had bilateral carpal tunnel release, the most recent being the left side in 2019. She had a cervical fusion approximately 3 years ago. Electrodiagnostic findings: Median motor nerve demonstrates normal distal latency amplitude and conduction velocity bilaterally. Normal ulnar motor response bilaterally, including conduction across the elbow. Normal median ulnar F waves bilaterally. Sensory responses are within normal limits. On needle EMG, all muscles tested in the upper limbs showed no evidence of denervation with normal motor unit action potentials. Electrodiagnostic impression: This is a normal electrodiagnostic study in the upper limbs. There is no electrodiagnostic evidence for peripheral neuropathy, including carpal tunnel or cubital tunnel syndrome. There is no electrodiagnostic evidence for cervical radiculopathy. If there are any further questions, please do not hesitate to contact me.
== END ==
PROVIDERS: Family Provider Family Medicine; PCP Family Medicine; Referring Provider Family Medicine; Visit Provider Family Medicine
DX: G56.02 Carpal tunnel syndrome, left upper limb (principal); G62.9 Polyneuropathy, unspecified
CPT/HCPCS: 95886; 95912

== ENCOUNTER 2019-08-27 05:21 | Day surgery (SDC) | payer MEDICAID, SELFPAY ==
[2019-05-02 11:22] VITALS: BMI 34.7
[2019-06-24 09:05] VITALS: BMI 34.7
[2019-08-27] VITALS (8 sets, daily range): BP systolic 109–129; BP diastolic 70–101; PULSE 74–90; RESP 16; TEMP 36.6–36.8; O2SAT 96–100
[2019-08-27] MEDS: Lactated Ringers 1,000 ML 75 ML IV (06:02)
--- NOTE | 2019-08-27 06:11 | PCM.HP.STD ---
Problem List (1) Screening for intestinal cancer Status: Acute History of Present Illness Date of Admission: 08/27/19 The patient is a 49 year old F who presents for screening colonoscopy today. She denies bright red blood per rectum or melena. She is lifelong had abdominal cramps intermittent explosive diarrhea. She has not had any fever or chills or sweats or shortness of breath. She otherwise feels that her health is stable. She denies family history of colon cancer. Past Medical History Past Medical History (Chronic Problems): Chronic Problems Chronic neck pain (Chronic) HLD (hyperlipidemia) (Chronic) Anxiety and depression (Chronic) Obesity (BMI 30.0-34.9) (Chronic) Tobacco use (Chronic) Medical History: Medical History (Last Updated 05/02/19 @ 11:21 by Rajani Alejandro) Arthritis M19.90 Carpal tunnel syndrome G56.00 HISTORY OF NECK FUSION Knee pain M25.569 Shortness of breath R06.02 Allergies No Known Allergies Allergy (Verified 08/25/19 14:10) Home Medications: Ambulatory Orders Medication Instructions Recorded NK 08/25/19 Surgical History: Surgical History (Last Reviewed 05/02/19 @ 11:21 by Rajani Alejandro) Tubal ligation status Z98.51 Surgical History: - - Bilateral tubal ligation, tonsillectomy, cervical fusion with hardware. 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 Mother also had a history of peptic versus gastric ulcer disease with secondary to hemorrhage. Paternal History Items: - - Father with a history of chronic COPD with tobacco use. Review of Systems Constitutional: Denies: Chills, Fever HEENT: Denies: Difficulty Swallowing Cardiovascular: Denies: Chest Pain Respiratory: Denies: Cough, Shortness of Breath Gastrointestinal: Reports: - - Intermittent abdominal cramping Endocrine: Denies: Change in Body Habitus VTE Information - Inpt Only VTE Present on Admission: No Patient Problems: Active and Suspected Problems (Last Updated 05/02/19 @ 11:21 by Rajani Alejandro) Screening for intestinal cancer (Acute) - Physical Exam Vitals/I&O's: Vital Signs Temp Pulse Resp BP Pulse Ox 98.2 F 90 16 123/80 H 100 08/27/19 05:45 08/27/19 05:45 08/27/19 05:45 08/27/19 05:45 08/27/19 05:45 Oxygen Delivery Method Room Air Weight: 182 lb 12.211 oz Body Mass Index (BMI) 34.7 General: Alert, Oriented x3, Cooperative, No apparent distress HEENT: Atraumatic Oral: Moist Mucosa Neck: Supple Lungs: Clear to auscultation, Normal air movement Cardiovascular: Regular rate, Regular Rhythm Abdomen: Bowel Sounds Present, Soft, Non Tender Extremities: No Calf Tenderness Neurological: - - Normal cognition Psych/Mental Status: Normal Affect Current Medications Lactated Ringer's () 1,000 mls @ 75 mls/hr IV .[id number] RICHARD Last Admin: 08/27/19 06:02 Dose: 75 mls/hr Documented by: Assessment/Plan All Active Problems (Last Updated 05/02/19 @ 11:21 by Rajani Alejandro) Screening for intestinal cancer (Acute) Chest pain (Acute) TIA (transient ischemic attack) (Acute) 49-year-old female who is not previously had a colonoscopy. She presents for screening colonoscopy with possible biopsy or polypectomy is indicated. She is aware of the technique, benefit, risk and alternatives. She presents via open access today. Wilberto Robbins M.D., F.A.C.S.
--- NOTE | 2019-08-27 06:30 | COLBX_PTH ---
PATIENT: RICCI GARCIA LOC: EN U#:[id number] AGE/SX: 49/F ROOM: RE08/27/[address]: Dr. Wilberto Robbins MD : 1970 BED: DIS: 08/27/2019 SPEC #: [id number] RECD: 08/27/19 12:08 STATUS: BOB ROOTNelly #: [id number] KENDRICK: 08/27/19 06:[address]: Wilberto Robbins DEPT: SURGICAL PATHOLOGY RECD BY: Art Hutchins ENTERED: 08/30/19 08:58 SP TYPE: COLON BX OTHR DR: Dr. Mateo Jimenez MD Tissues: A - COLON BIOPSY B - Rectum, NOS Procedures: Surgery Specimen Level IV HEADER OPERATION: Colonoscopy - open access (MOD) PRE-OP DIAGNOSIS: Screening TISSUE SUBMITTED: A - Random colonic biopsy, B - Rectal polyp biopsy MICROSCOPIC DIAGNOSIS A. Colon, random biopsy: No pathologic change. B. Rectal polyp, biopsy: Hyperplastic change. See comment. AM:bea 08/31/19 COMMENT B. Sections may represent a mucosal prolapse. Clinical correlation is suggested. Case has been reviewed in consultation with Dr. Campbell who concurs with the above diagnosis. IDC:EFRA MICROSCOPIC DESCRIPTION Slides are reviewed. GROSS DESCRIPTION A - Received in fixative is one container labeled with the patient's name and designated random colonic biopsy. The specimen consists of multiple irregular fragments of light reese soft tissue that in aggregate measure 1.5 x 0.5 x 0.1 cm. The specimen is totally submitted in one cassette. B - Received in fixative is one container labeled with the patient's name and designated rectal polyp biopsy. The specimen consists of multiple irregular fragments of light reese soft tissue that in aggregate measure 0.5 x 0.5 x 0.1 cm. The specimen is totally submitted in one cassette. / EFRA:bea 08/30/19 TC:5 CPT: 84766 x2
--- NOTE | 2019-08-27 06:54 | OP.COLON_ITS ---
Patient Name: Maryellen Garnica Procedure Date: 08/27/2019 5:47 AM Date of : 1970 Age: 49 Procedure: Colonoscopy Indications: Screening for colorectal malignant neoplasm Providers: Wilberto Robbins MD Referring MD: Wilberto Robbins MD Medicines: Midazolam 5 mg IV, Meperidine 100 mg IV, Diphenhydramine 25 mg IV Patient Profile: Last Colonoscopy: none. The patient's first colonoscopy is today. Complications: No immediate complications. Procedure: Pre-Anesthesia Assessment: - Prior to the procedure, a History and Physical was performed, and patient medications and allergies were reviewed. The patient's tolerance of previous anesthesia was also reviewed. The risks and benefits of the procedure and the sedation options and risks were discussed with the patient. All questions were answered, and informed consent was obtained. Prior Anticoagulants: The patient has taken no previous anticoagulant or antiplatelet agents. ASA Grade Assessment: II - A patient with mild systemic disease. After reviewing the risks and benefits, the patient was deemed in satisfactory condition to undergo the procedure. After I obtained informed consent, the scope was passed under direct vision. Throughout the procedure, the patient's blood pressure, pulse, and oxygen saturations were monitored continuously. The adult colonoscope was introduced through the anus and advanced to the cecum, identified by appendiceal orifice and ileocecal valve. The colonoscopy was performed without difficulty. The patient tolerated the procedure well. The quality of the bowel preparation was good. The ileocecal valve and the appendiceal orifice were photographed. Moderate Sedation: Moderate (conscious) sedation was personally administered by the endoscopist. The following parameters were monitored: oxygen saturation, heart rate, blood pressure, and response to care. Total physician intraservice time was 15 minutes. Scope In: 6:33:46 AM Scope Withdrawal Time 0 hours 7 minutes 46 seconds Scope Out: 6:47:12 AM Total Procedure Duration Time 0 hours 13 minutes 26 seconds Findings: The digital rectal exam findings include non-thrombosed internal hemorrhoids and internal hemorrhoids that prolapse with straining, but spontaneously regress to the resting position (Grade II). A 4 mm polyp was found in the rectum. The polyp was sessile. The polyp was removed with a cold biopsy forceps. Resection and retrieval were complete. Biopsies for histology were taken with a cold forceps from the entire colon for evaluation of microscopic colitis. A few diverticula were found in the sigmoid colon. Impression: - Non-thrombosed internal hemorrhoids and internal hemorrhoids that prolapse with straining, but spontaneously regress to the resting position (Grade II) found on digital rectal exam. - One 4 mm polyp in the rectum, removed with a cold biopsy forceps. Resected and retrieved. Biopsied. - Diverticulosis in the sigmoid colon. Recommendation: - Discharge patient to home. - Resume previous diet. - Continue present medications. - Telephone my office for pathology results in 1 week. - Repeat colonoscopy in 5 years for surveillance based on pathology results. Procedure Code(s): --- Professional --- 92528, Colonoscopy, flexible; with biopsy, single or multiple 65692, 59, Moderate sedation services provided by the same physician or other qualified health pediatric critical care nurse performing the diagnostic or therapeutic service that the sedation supports, requiring the presence of an independent trained observer to assist in the monitoring of the patient's level of consciousness and physiological status; initial 15 minutes of intraservice time, patient age 5 years or older Diagnosis Code(s): --- Professional --- Z12.11, Encounter for screening for malignant neoplasm of colon K64.1, Second degree hemorrhoids K62.1, Rectal polyp K57.30, Diverticulosis of large intestine without perforation or abscess without bleeding CPT copyright 2017 [employer]. All rights reserved. The codes documented in this report are preliminary and upon conveyor feeder offbearer review may be revised to meet current compliance requirements. Wilberto Robbins MD 08/27/2019 6:53:17 AM This report has been signed electronically. Number of Addenda: 0 Note Initiated On: 08/27/2019 5:47 AM
--- NOTE | 2019-08-27 06:54 | OP.CCLET_ITS ---
08/27/2019 Mateo Jimenez [address] [place] [address] Re : Colonoscopy procedure for Maryellen Vas Dear Dr. Jimenez This procedure was performed on Tuesday, August 27, 2019. My impressions and recommendations are as follows: Impressions : - Non-thrombosed internal hemorrhoids and internal hemorrhoids that prolapse with straining, but spontaneously regress to the resting position (Grade II) found on digital rectal exam. - One 4 mm polyp in the rectum, removed with a cold biopsy forceps. Resected and retrieved. Biopsied. - Diverticulosis in the sigmoid colon. Recommendations : - Discharge patient to home. - Resume previous diet. - Continue present medications. - Telephone my office for pathology results in 1 week. - Repeat colonoscopy in 5 years for surveillance based on pathology results. My findings are described in the full procedure note, which is enclosed. If I can be of further assistance, please feel free to contact me at Doctor phone number(s): Work: . Sincerely, Wilberto Robbins MD 08/27/2019 6:53:17 AM This report has been signed electronically.
== END 2019-08-27 07:47 | disposition home or self-care (01) ==
LOC: EN 05:22 → AC 05:22
PROVIDERS: PCP Family Medicine; Referring Provider Surgery; Visit Provider Surgery
PROC: 0DJD8ZZ Inspection of Lower Intestinal Tract, Via Natural or Artificial Opening Endoscopic (ICD-10-PCS; CPT 45378; principal; 2019-08-27 06:25)
DX: Z12.11 Encounter for screening for malignant neoplasm of colon (principal); K57.30 Diverticulosis of large intestine without perforation or abscess without bleeding; K64.1 Second degree hemorrhoids; K62.1 Rectal polyp; E66.9 Obesity, unspecified; M19.90 Unspecified osteoarthritis, unspecified site; Z86.73 Personal history of transient ischemic attack (TIA), and cerebral infarction without residual deficits; F17.210 Nicotine dependence, cigarettes, uncomplicated
CPT/HCPCS: 45380; 88305; 99152; 99153; J7120

== ENCOUNTER → 2019-10-06 17:04 | Outpatient (CLI) | payer MEDICAID, SELFPAY ==
[2019-09-23 14:53] VITALS: BMI 34.7
--- NOTE | 2019-10-06 17:05 | MRI_ITS ---
STUDY: MRI LEFT KNEE REASON FOR EXAM: Female, 49 years old. Pain. TECHNIQUE: Standardized fat and water weighted pulse sequences were obtained in all 3 orthogonal planes. COMPARISON: June 24, 2019 FINDINGS: Normal medial meniscus. Normal hyaline cartilage of the medial femorotibial compartment. Normal medial femoral condyle and tibial plateau. Normal medial collateral ligamentous complex (MCL). Normal distal semimembranosus, gracilis and semitendinosus tendons. Lateral meniscus tear of the anterior horn and body, series 5 images through . Normal hyaline cartilage of the lateral femorotibial compartment. Normal lateral femoral condyle and tibial plateau. Normal proximal tibiofibular articulation. Normal lateral collateral (fibular) ligament. Normal popliteus tendon. Normal biceps femoris tendon. There is edema with swelling and loss of definition of the of the ACL fascicles, producing a celery stick appearance, with preservation of the continuity of fibers, consistent with mucoid cystic degeneration. Normal posterior cruciate ligament (PCL). There is arthrosis of the patellofemoral articulation. There is diffuse, less than 50% thickness articular cartilage loss of the patellofemoral compartment. Normal medial and lateral patellar retinaculum. Normal quadriceps tendon. Normal patellar tendon. Normal Hoffa''s fat pad. There is a small volume joint effusion. The soft tissues are unremarkable. The otherwise visualized osseous structures are unremarkable. 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 Joint effusion. Electronically Signed: Pete Martell MD at 19:16 EDT , Service support ,
== END ==
PROVIDERS: PCP Family Medicine; Referring Provider Physician Assistant; Visit Provider Physician Assistant
DX: M23.92 Unspecified internal derangement of left knee (principal); M25.562 Pain in left knee
CPT/HCPCS: 73721

== ENCOUNTER → 2019-11-02 15:00 | Outpatient (CLI) | payer MEDICAID, SELFPAY ==
[2019-10-18 15:23] VITALS: BMI 34.7
--- NOTE | 2019-11-02 15:02 | RAD_ITS ---
STUDY: X-RAY CHEST REASON FOR EXAM: Female, 49 years old. Acute bronchitis, Hx smoker TECHNIQUE: PA and lateral views of the chest. COMPARISON: Comparison is made with prior study dated August 15, 2017. FINDINGS: The lungs are clear and expanded. There is no demonstrated pleural abnormality. Normal size heart. Normal mediastinum and tremayne. Normal visualized pulmonary arteries. Normal visualized aortic arch and descending thoracic aorta. There is a dextroscoliosis of the thoracic spine. Stable 4.4 cm x 2.1 cm chondroid calcification in the intramedullary portion of the proximal left humerus. This is unchanged. There is no demonstrated abnormality of the visualized soft tissue structures of the upper abdomen. RAD/Chest PA and Lateral IMPRESSION: Normal x-ray examination of the chest. Electronically Signed: Sudhakar Matthews, at 14:46 EDT , Service support ,
== END ==
PROVIDERS: PCP Family Medicine; Referring Provider Family Medicine; Visit Provider Family Medicine
DX: J20.9 Acute bronchitis, unspecified (principal)
CPT/HCPCS: 71046

== ENCOUNTER 2019-12-01 08:15 | Day surgery (SDC) | payer MEDICAID, SELFPAY ==
[2019-10-18 15:23] VITALS: BMI 34.7
--- NOTE | 2019-11-22 03:38 | HP_ITS ---
Intake Intake Visit Reasons: left knee Chief Complaint: left knee Accompanied by: self Is patient in pain?: Yes Allergies No Known Allergies Allergy (Verified 11/16/19 15:37) Medications Black Cohosh 540 mg PO DAILY 11/16/19 [History Confirmed 11/22/19] Ibuprofen [Ibu] 600 mg PO PRN PRN 11/16/19 [History Confirmed 11/22/19] Multivitamin [Multiple Vitamins] 1 ea PO DAILY 11/16/19 [History Confirmed 11/22/19] PFSH Medical History (Updated 08/27/19 @ 06:[address] Wilberto Robbins MD) Arthritis (Acute) Carpal tunnel syndrome (Acute) HISTORY OF NECK FUSION (Acute) Knee pain (Acute) Shortness of breath (Acute) Social History (Updated 10/25/19 @ 08:36 by ABDIRASHID Gonsales) Smoking Status: Current every day smoker alcohol intake: never HPI left knee: Surgical H&P: Yes Details: Parts of this documentation were recorded by a scribe, this documentation accurately reflects the service provided and the decisions made by Misael perea PA 11/22/19 1324. RICCI GARCIA is a 49 year old F here today for left knee to sign surgery consent for left knee arthroscopic procedure for meniscectomy versus meniscus repair, also discussed evaluation of the ACL during arthroscopy. Patient wishes to proceed with surgery and is scheduled for 12/01/2019. Denies numbness, tingling or other associated symptoms.Continues to have anterior medial knee pain. ROS Musc Reports joint pain, Denies joint swelling Skin/Breast Reports system reviewed and no additional complaints, except as docu Neuro Yes system reviewed and no additional complaints, except as docu Ortho Exam Left Knee Skin/Wound: No ecchymosis, No erythema, No swelling Knee ROM: Yes ROM-Extension -20 to 0, Yes ROM-Flexion 0-140 Examination: Yes med jt line tenderness, No Lat jt line tenderness, Yes Pain with flexion, Yes Pat's Test KNEE: No abnormalities on inspection. No other change in physical exam from previous finding. Assessment & Plan Problems 1. Tear of lateral meniscus of left knee, current, unspecified tear type, subsequent encounter S83.282D Coding Diagnoses Tear of lateral meniscus of left knee, current, unspecified tear type, subsequent encounter S83.282D ??Tear current or old: current ??Encounter type: subsequent encounter ??Meniscus tear of knee type: unspecified type ??Laterality: left Date _ Misael MENDENHALL
[2019-11-22 15:38] VITALS: BMI 34.7
--- NOTE | 2019-11-25 15:56 | EKG12_ITS ---
Test Reason : PRE OP Blood Pressure : / mmHG Vent. Rate : 081 BPM Atrial Rate : 081 BPM P-R Int : 154 ms QRS Dur : 076 ms QT Int : 362 ms P-R-T Axes : 043 035 027 degrees QTc Int : 420 ms Normal sinus rhythm Septal infarct , age undetermined Abnormal ECG Confirmed by ANDREZ CAMPBELL, REAGAN ([id number]), editor in chief newspaper AVNI BERMUDEZ ([id number]) on 11/29/2019 9:40:33 AM Referred By: Bertha Leroy Confirmed By:LIZ MAGUIRE MD
[2019-11-25 16:10] LABS: Hematocrit 39.7 % (37-47); Hemoglobin 13.2 g/dL (12.0-15.0); Mean Corp Hgb Conc 33.2 g/dL (32-36); Mean Corpuscular Hgb 31.5 pg (27.0-32.0); Mean Corpuscular Volume 94.7 fL (81-99); Mean Platelet Vol. 9.8 fl (6.2-12.0); Platelet Count 236 K/mm3 (150-450); RBC Distribution Width CV 12.1 % (11.6-14.6); RBC Distribution Width SD 41.8 fl (35.1-43.9); Red Blood Count 4.19 M/mm3 (4.2-5.4); White Blood Count 8.4 K/mm3 (4.4-11.0)
[2019-11-25 16:26] LABS: International Normalized Ratio 0.9; Partial Thromboplast Time 28.2 Seconds (24.1-36.2)
[2019-11-25 16:33] LABS: AST(SGOT) 15 U/L (15-37); Alanine Aminotransfer ALT/SGPT 36 U/L (13-56); Albumin, Serum 4.3 g/dL (3.2-5.0); Alkaline Phosphatase 61 U/L (45-117); Bilirubin, Direct 0.06 mg/dL (0.00-0.30); Globulin 2.6 g/dL (2.2-4.2); Protein, Total 6.9 g/dL (6.4-8.2)
[2019-11-25 18:13] LABS: Probe Check PASS; Specimen Processing Control PASS
[2019-12-01] VITALS (7 sets, daily range): BP systolic 114–147; BP diastolic 71–91; PULSE 71–96; RESP 16; TEMP 36.2–36.7; O2SAT 97–100; BMI 32.5
[2019-12-01] MEDS: Lactated Ringers 1,000 ML 100 ML IV ×2 (08:43→12:00)
[2019-12-01] MEDS: Bupiv/Epi 0.25% 30 ML Vial (09:17)
[2019-12-01] MEDS: Cefazolin 2 GM in 0.9% Normal Saline 100 ML IV (09:35)
[2019-12-01] MEDS: Epinephrine (1 mg/ml) 1 MG/ML VIAL (10:05)
--- NOTE | 2019-12-01 10:57 | DCINST_ITS ---
Discharge Diet: No Restrictions - Remove dressings postop day 4 and apply Band- Aids to incision sites, may shower and get incision wet postop day 4, weight- bear as tolerated left leg, call with increased pain numbness tingling or further issues arise, call if calf pain or calf swelling,, take pain medications as prescribed do not take any other Tylenol products, follow-up in 2 weeks Discharge Activity: May Not Drive May shower in (days): 1 Ice area for (Minutes): 20 - Every hour while awake. Weight Bearing Status: Weight bearing as tolerated Keep extremity elevated above heart level: Operative Extremity Call your doctor if your incision/area has: Continuous Slow Oozing, Sudden Increased Bleeding, Increased Pain/ Swelling, Increased Redness, Foul Smelling Discharge Call your doctor if you observe: Fever of 101 or Higher, Coldness, Increased Pain, Numbness or Tingling, Change in Color, Calf discomfort Allergies/Adverse Reactions: Allergies No Known Allergies Allergy (Verified 12/01/19 08:20) Medications to take at Discharge Black Cohosh 540 mg PO DAILY 11/16/19 Ibuprofen [Ibu] 600 mg PO PRN PRN 11/16/19 Multivitamin [Multiple Vitamins] 1 ea PO DAILY 11/16/19 Oxycodone HCl/Acetaminophen [Percocet 5/325] 1 - 2 tablet PO Q6H PRN PRN 5 Days #28 tablet 12/01/19 The following prescriptions were given: Oxycodone HCl/Acetaminophen [Percocet 5/325] 1 - 2 tablet PO Q6H PRN PRN 5 Days #28 tablet PRN Reason: Pain Transmission Status: Sent to [facility] Primary Care Physician: Mateo Jimenez MD [Primary Care Provider] - Test Results: Test results from this visit will be discussed in further detail at your follow- up appointment, if applicable. Please Follow Up With: Bertha Leroy, DO - [phone]
--- NOTE | 2019-12-01 10:57 | PCM.OPRPT ---
Report of Operation Date of Procedure: 12/01/19 Pre-Operative Diagnosis: left knee osteoarthritis, lateral meniscus tear, synovitis Post-Operative Diagnosis: same Surgery/Procedure Performed:: salk, lat meniscectomy, extensive synovectomy, mfc and patella chondroplasty undergraduate intern: Misael Campos Type of Anesthesia:: General Anesthesiologist: Angelo Calero Estimated Blood Loss (mL): min Fluids Replaced: see chart Description of Procedure: Preop note Patient is a 49-year-old female with continued left knee with ambulation and feelings of instability and pain medial lateral joint lines. Patient failed conservative treatment MRI confirms lateral meniscus tear as well as arthritis. Risk benefits and alternatives surgery discussed with patient. Risks including but not limited to blood loss, blood clot, infection, neurovascular, failure procedure, loss of life and loss of limb. Patient is aware like proceed with left knee arthroscopy repair as indicated. We discussed the current risk associated COVID-19. While it is understood that there is a community spread of COVID 19 the risk of michael COVID-19 while at [facility] is very low, however, the risk cannot be completely mitigated because of the community spread of the disease. We discussed in detail the risk of exposure to and or potential harm posed by the COVID-19 virus with having a surgery/procedure at this time versus the risk of delaying the surgery/procedure. Is not possible to know either the risk of delaying the surgery procedure or chance of getting an infection with perfect accuracy, but a joint decision was made to proceed at this time with a schedule surgery/procedure as indicated on the consent form. Patient was notified that we will need to comply with any screening or testing [facility] wishes to perform or that surgery may be delayed for any positive results. Operative note Patient seen and examined preoperative holding area. Left knee was marked. Patient brought to the operating room and placed supine on the operating room table. Sign, anesthesia, antibiotics were administered. The left knee was prepped and draped in usual sterile technique with a tourniquet around her upper thigh. All bony prominences well-padded SCDs placed on her contralateral limb. We marked out our incisions for anterior lateral anteromedial portal placement. Left leg was then elevate exsanguinated tourniquet raised her pressure of 250 torr. Please note that preoperatively we did pivot test her and check her Lockman and she was stable throughout. We created that we could stated our timeout. Created an anterior lateral portal with an 11 blade. Begin our diagnostic arthroscopy. She was difficulty getting into her joint and she had extensive synovitis in the anteromedial and anterior lateral recesses. The patella had grade 2 fibrillated changes on the inferior pole. We then created an anteromedial portal under direct visualization. We used a shaver to resect back the thickened synovium that was an anteromedial extending up to the recess as well. We then probed the medial meniscus which is intact and stable probing. The ACL was intact and stable to probing the PCL was intact and stable probing. There was some muscular degeneration and some degenerative changes in the lateral meniscus was gently debrided back with a combination of a shaver and a basket to a stable rim. We then reinserted the probe and was stable meniscus remaining. We then performed extensive anterior lateral synovectomy switching her portals to get up into the gutters there was synovitis up into the gutters on the lateral side as well. We then irrigated the knee with copious nonsterile saline. We able to visualize the MFC little bit better she had some unstable medial femoral condyle pieces that was also gently debrided with a shaver. She had grade 2 uterine related changes and 3 chondral thinning throughout the entire medial femoral condyle as well as the medial tibial plateau. We resected back the unstable pieces on the inferior patella. We irrigated the knee again with copious amounts of sterile saline. Tourniquet was deflated. Portals were closed with interrupted 4-0 nylon stitches. Stable on sterile dressings were applied. Patient taught procedure well no complications transferred recovery room Stable condition Postoperative note Weight-bear as tolerated left leg Pharmacy has prescriptions Call with increased pain numbness tingling or further issues arise Follow-up in 2 weeks This note was generated with [employer] software. It may contain incorrect words, spelling, and punctuation that were not noted in checking the note before signing.
--- NOTE | 2019-12-01 11:08 | HP.PCM_ITS ---
History and Physical I have re-examined the patient. There are no clinical changes since date of exam. [facility] Medical Records Department [address] [place] [address] History and Physical 11/22/19 0338 MR#: [id number] Acct: [id number] Name: RICCI GARCIA Rep #: [id number] : 1970 49 From: Misael MENDENHALL PCP: Dr. Mateo Jimenez MD Status: PRE [facility] [place] Location: [facility] [place] Intake Intake Visit Reasons: left knee Chief Complaint: left knee Accompanied by: self Is patient in pain?: Yes Allergies No Known Allergies Allergy (Verified 11/16/19 15:37) Medications Black Cohosh 540 mg PO DAILY 11/16/19 [History Confirmed 11/22/19] Ibuprofen [Ibu] 600 mg PO PRN PRN 11/16/19 [History Confirmed 11/22/19] Multivitamin [Multiple Vitamins] 1 ea PO DAILY 11/16/19 [History Confirmed 11/22/19] PFSH Medical History (Updated 08/27/19 @ 06:[address] Wilberto Robbins MD) Arthritis (Acute) Carpal tunnel syndrome (Acute) HISTORY OF NECK FUSION (Acute) Knee pain (Acute) Shortness of breath (Acute) Social History (Updated 10/25/19 @ 08:36 by ABDIRASHID Gonsales) Smoking Status : Current every day smoker alcohol intake : never HPI 1
[2019-12-01] MEDS: Acetaminophen 325 MG Tablet PO (12:30)
[2019-12-01] MEDS: oxyCODONE 5 MG Tablet PO (12:30)
== END 2019-12-01 13:01 | disposition home or self-care (01) ==
LOC: SDC 08:16 → AC 08:16
PROVIDERS: Anesthesiology; PCP Family Medicine; Referring Provider Orthopaedic Surgery; Visit Provider Orthopaedic Surgery
PROC: (CPT 29888; principal; 2019-12-01 09:50)
DX: S83.282A Other tear of lateral meniscus, current injury, left knee, initial encounter (principal); S83.512A Sprain of anterior cruciate ligament of left knee, initial encounter; M17.12 Unilateral primary osteoarthritis, left knee; M65.9 Synovitis and tenosynovitis, unspecified; Z11.59 Encounter for screening for other viral diseases; Z87.19 Personal history of other diseases of the digestive system; F17.200 Nicotine dependence, unspecified, uncomplicated
CPT/HCPCS: 01400; 29881; 29888; 36415; 80076; 85027; 85610; 85730; 87635; 93005; 94799; J7120; J2405; U0003

== ENCOUNTER → 2019-12-22 10:09 | Outpatient (CLI) | payer MEDICAID, SELFPAY ==
[2019-05-02 11:22] VITALS: BMI 34.7
[2019-12-16 09:57] VITALS: BMI 32.5
--- NOTE | 2019-12-22 10:11 | BI_ITS ---
MAMMOGRAPHY - BILATERAL SCREENING REASON FOR EXAM: Female, 49 years old. Routine annual screening examination. PERTINENT HISTORY: Grandmother with breast cancer. TECHNIQUE: Digital bilateral breast caryl (3D mammographic acquisition) in the CC and MLO projections. 2-D mediolateral oblique (MLO) and craniocaudad (CC) views of both breasts were obtained. CAD: Full Field Digital Mammography with Computer Added Detection was performed. COMPARISON: None. Baseline examination. FINDINGS: Breast Composition: There are scattered areas of fibroglandular density. There are no dominant masses or suspicious calcifications. Asymmetry of breast tissue where more breast tissue is seen in the upper outer quadrant of the left breast as compared to the right side. No other significant abnormalities are identified. BI/SCREEN MAMM (CAD) W/CARYL BILAT IMPRESSION: Negative screening mammogram. Yearly followup mammogram recommended. (A) ASSESSMENT CATEGORY: BIRADS Category 2: Benign. A letter regarding these results will be sent to the patient by the facility within 30 days. Approximately 10% of breast cancers are not detected by mammography. A normal mammogram should not delay biopsy of a clinically suspicious abnormality. [id number] Electronically Signed: Sudhakar Matthews, at 11:11 EDT , Service support ,
== END ==
PROVIDERS: PCP Family Medicine; Referring Provider Family Medicine; Visit Provider Family Medicine
DX: Z12.31 Encounter for screening mammogram for malignant neoplasm of breast (principal)
CPT/HCPCS: 77063; 77067

== ENCOUNTER 2020-01-28 13:00 | Outpatient (RCR) | payer MEDICAID, SELFPAY ==
[2019-12-16 09:57] VITALS: BMI 32.5
--- NOTE | 2020-01-06 17:12 | HP.PTEVAL ---
Patient's Visit Information RICCI GARCIA is a 49 year old F referred to Physical Therapy by ABDIRASHID Gonsales with a diagnosis of Left Knee Scope 12/01/2019. Date of Evaluation: 01/06/20 Physical Therapist: Holly Ortega DPT - Visit Plan Frequency: 3x /Week Duration: 3 Weeks Plan: Focus on ROM and functional mobility - Subjective Left knee surgery after wear and tear- December 01, [address] Leroy. Fully I prior to surgery- is back to all of her activities. She can't get her knee to go straight and bend it without pain. Best: 0/10 Agg: walking down stairs, bending, squatting. Worst: 5/10 She is really stiff in the AM- does not wake her up at night. Pain is located around the knee- reports its mostly just tight. No radiating pain- just muscle soreness. Does have bilateral foot numbness but that is not new. She is pretty active and this is slowing down. She has a really hard time going down stairs. Goals: get the knee moving PMHx/Med: no change since surgery. 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 - Objective Posture: FH, RS- can correct with verbal cues but does not maintain. Gait: antalgic- decreased stance on the left LE with poor heel/toe pattern due to lack of ROM. HR/TR: able but does with bent knee. SLS: weight shift but unable to SLS due to pain. Palpation: tender along medial and lateral joint line. Observation: incision healing well no s/s of infection- moderate edema. ROM: 20-100 degrees of ROM with pain at end range- post manual stretching 10 degrees of extension. Strength: Ankle: 5/5, Knee: 4/5 in available range with pain, Hip: 4/5 Core: fair. Flex: HS:severe. Gastroc: moderate - Goals Goal 1:: Patient will be I with HEP and progression Goal Time Frame: 4-6 Weeks Goal 2:: Patient will ambualte >300 feet with a normalized gait pattern Goal Time Frame: 4-6 Weeks Goal 3:: Patient will dem 0-130 degrees of ROM in the knee Goal Time Frame: 4-6 Weeks Goal 4:: Patient will asc/desc 8 stairs recip with no HR Goal Time Frame: 4-6 Weeks - Rehabilitation Potential Physical Therapy Diagnosis: Patient presents s/p left knee scope 12/01/19- she has decreased ROM, strength, flexibility and muscular endurance leading to abnormal gait and increased pain with ADL's. Rehabilitation Potential: Good - Anticipated Interventions Patient/Client Instruction: Educate patient on: Benefits of Fitness Program Therapeutic Exercise to Include: Strength training, Balance training, Agility training, Body mechanics, Postural training, Flexibilty training, Gait and locomotor training, Passive ROM, Active ROM, Dynamic Lumbar Stabilization, Scapular Strength/Stabilization For the Purpose of:: To improve muscle performance and motor function TENS: Yes Cryotherapy (ice pack, ice massage): Yes Thermo therapy (hot pack): Yes Ultrasound (thermal/non thermal): Yes For the Purpose of:: To decrease pain, To decrease swelling/inflammation Thank you for the opportunity to evaluate your patient. For Medicare and Medicare HMO plans, please review the plan of care and approve it. It will need to be FAXED BACK to us at [phone] for Medicare purposes. For Medicare only, by signing this I certify the plan of care. Please let me know if there are questions or concerns regarding this plan of care. Physician Signature: Date:
--- NOTE | 2020-01-28 13:17 | HP.PTDCSUM ---
It has been my pleasure to treat RICCI JUSTIN VAS referred by ABDIRASHID Gonsales, with the diagnosis of Left Knee Scope 12/01/2019 for a total of 8 visit(s). Discharge Date: 01/28/20 Please see the following information for a summary of their discharge status. Subjective: Doing well. Not really having pain. A lot straaighter than it used to be. Only f/u with doctor if needs it. Activities are pretty normal. 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 Standing alot straighter. Doing stretches at home for extension. Ready to be done with PT. L knee Pain Intensity (Out of 10): 0 % Improvement: 100 Objective/Function: -1 ext to 130 flexion today. walking normal. Steps slightly weak L with eccentric lowering but reciprocal without rail. Goal 1:: Patient will be I with HEP and progression Goal Progress: Goal Met Goal 2:: Patient will ambualte >300 feet with a normalized gait pattern Goal Progress: Goal Met Goal 3:: Patient will dem 0-130 degrees of ROM in the knee Goal Progress: Progressing Goal 4:: Patient will asc/desc 8 stairs recip with no HR Goal Progress: Goal Met Plan: d/c to HEP If there are questions or concerns regarding this patient's physical therapy, please feel free to call me at [phone]. Thank you for the referral of this patient. Sincerely, Dionisio Beck, DPT, OCS, CSCS
== END 2020-01-28 19:00 | disposition home or self-care (01) ==
LOC: PT 13:00
PROVIDERS: PCP Family Medicine; Referring Provider Physician Assistant; Visit Provider Physician Assistant
DX: Z47.89 Encounter for other orthopedic aftercare (principal)
CPT/HCPCS: 97014; 97110; 97161; 97164; G0283

== ENCOUNTER → 2020-02-02 15:41 | Outpatient (CLI) | payer MEDICAID, SELFPAY ==
[2020-01-12 10:07] VITALS: BMI 32.5
[2020-02-02 15:45] LABS: Mucous, Urine 0 SEEN /hpf (<or=2+); Red Blood Cells-Urine 0 SEEN /hpf (0-5); White Blood Cells 0 SEEN /hpf (0-5)
[2020-02-02 18:02] LABS: Absolute Neutrophil Count 5.1 X10^3/uL (2.0-7.7); Basophil# 0.03 X10^3/uL; Basophil% 0.4 % (0-1); Eosinophils% 2.5 % (0-5); Hematocrit 39.7 % (37-47); Hemoglobin 13.2 g/dL (12.0-15.0); Lymphocyte % 28.3 % (19-41); Mean Corp Hgb Conc 33.2 g/dL (32-36); Mean Corpuscular Hgb 31.6 pg (27.0-32.0); Mean Platelet Vol. 10.8 fl (6.2-12.0); Monocyte# 0.44 X10^3/uL; Monocyte% 5.4 % (0-10); NRBC Flagged by Analyzer 0 % (0-5); Neutrophil # 5.13 X10^3/uL (2.7-7.7); Neutrophil % 63.2 % (47-70); Platelet Count 267 K/mm3 (150-450); RBC Distribution Width CV 12.3 % (11.6-14.6); Red Blood Count 4.18 M/mm3 (4.2-5.4); White Blood Count 8.1 K/mm3 (4.4-11.0)
[2020-02-02 18:10] LABS: Color, Urine Yellow (Yellow); Glucose, Dipstick Normal (Normal); Ketone-Dipstick Negative (Negative); Leukocyte Esterase-Dipstick Negative /ul (Negative); Nitrite-Dipstick Negative (Negative); Occult Blood-Urine Negative /ul (Negative); Protein-Dipstick Negative (Negative); Specific Gravity, Urine 1.015 (1.002-1.030); Urine Bilirubin Dipstick Negative (Negative); Urine Clarity Clear (Clear); Urine Urobilinogen Normal (Normal)
[2020-02-02 18:29] LABS: ALB/GLOB Ratio 1.1 RATIO (0.9-2.4); AST(SGOT) 25 U/L (15-37); Alanine Aminotransfer ALT/SGPT 35 U/L (13-56); Albumin, Serum 3.6 g/dL (3.2-5.0); Alkaline Phosphatase 73 U/L (45-117); Anion Gap 7 (5-15); BUN 12 mg/dL (7-18); BUN/Creat Ratio 17.8 RATIO (10-20); Calcium,Total 9.1 mg/dL (8.5-10.1); Chloride 107 mmol/L (98-107); Cholesterol 280 mg/dL (200); Creatinine, Serum 0.68 mg/dL (0.55-1.02); EST Glomerular Filtration Rate 98 mL/min (>60); Est Glom Filt Rate - Afr Amer 118 mL/min (>60); Globulin 3.3 g/dL (2.2-4.2); Glucose 112 mg/dL (74-106); High Density Lipoprotein 47 mg/dL; Potassium 3.4 mmol/L (3.5-5.1); Protein, Total 6.9 g/dL (6.4-8.2); Sodium Level 142 mmol/L (136-145); Triglycerides 1088 mg/dL
[2020-02-02 18:45] LABS: Bacteria RARE /hpf (None Seen); Squamous Epithelial Cells - UA 0-5 SEEN /hpf (5-10)
[2020-02-03 09:59] LABS: Hemoglobin A1c 5.5 % (3.8-5.6)
== END ==
PROVIDERS: PCP Family Medicine; Referring Provider Family Medicine; Visit Provider Family Medicine
DX: E78.5 Hyperlipidemia, unspecified (principal); Z72.0 Tobacco use
CPT/HCPCS: 36415; 80053; 80061; 81001; 83036; 85025

== ENCOUNTER 2020-02-19 09:18 | Emergency (ER) | payer MEDICAID, SELFPAY ==
[2020-01-12 10:07] VITALS: BMI 32.5
[2020-02-19 09:19] VITALS: BP 164/134; PULSE 109; RESP 18; TEMP 37.1; O2SAT 100; BMI 34.4
--- NOTE | 2020-02-19 10:04 | EKG12_ITS ---
Test Reason : CP Blood Pressure : / mmHG Vent. Rate : 093 BPM Atrial Rate : 093 BPM P-R Int : 140 ms QRS Dur : 078 ms QT Int : 362 ms P-R-T Axes : 039 007 011 degrees QTc Int : 450 ms Normal sinus rhythm Normal ECG Confirmed by LYUDMILA CAMPBELL, MAXIMILIANO ([id number]), editorial specialist AVNI BERMUDEZ ([id number]) on 02/22/2020 11:17:34 AM Referred By: TARSHA Confirmed By:MAXIMILIANO COREAS MD
--- NOTE | 2020-02-19 10:04 | RAD_ITS ---
STUDY: X-RAY CHEST REASON FOR EXAM: Female, 50 years old. chest pain TECHNIQUE: Single AP portable view of the chest. COMPARISON: 11/02/2019 FINDINGS: The lungs are clear and expanded. There is no demonstrated pleural abnormality. Normal size heart. Normal mediastinum and tremayne. Normal visualized pulmonary arteries. Normal visualized aortic arch and descending thoracic aorta. There is a dextroscoliosis of the thoracic spine. Normal visualized ribs, clavicles, and shoulders. There is no demonstrated abnormality of the visualized soft tissue structures of the upper abdomen. RAD/Chest 1 View (Portable) IMPRESSION: Normal x-ray examination of the chest. Electronically Signed: Josue Sutton MD at 10:58 EDT Tel , Service support ,
[2020-02-19] MEDS: Aspirin 81 MG TAB.CHEW 324 MG PO (10:12)
--- NOTE | 2020-02-19 10:13 | ED.VISSUMM ---
- ER Visit Summary Date of Service: 02/19/20 Chief Complaint: Chest discomfort and fluttering of her heart History of Present Illness: The patient is a 50 F has medical history of elevated cholesterol and anxiety. Patient was at work today around 9 AM just that she felt flushed all over. Had some fluttering of her chest and mild epigastric lower chest discomfort. She denies any recent exertional chest pain or exertional dyspnea. No history of DVT or PE and no recent travel, surgery or immobilization. No recent hospitalization. No hemoptysis. Pain is not pleuritic. There is no leg pain or swelling. Patient states she was on anxiety meds recently came off of those. Physical Examination: Middle-aged female initial blood pressure is elevated 164/134 however when I am in the room is 144/87. Pulse ox 100% on room air no signs of hypoxia. Afebrile. She is in no distress. H EENT exam unremarkable. Neck nontender no lymphadenopathy. Lungs clear to auscultation bilaterally. Heart regular rhythm no murmur. Rate about 90. Chest were nontender. Abdomen soft nontender. Extremities moves all 4. Calves are nontender without edema or cords. Patient is moving all 4 extremities. No edema. Equal symmetrical radial pulses. Neurologically she is awake alert with no focal motor deficits. Test Results: Normal with a white count of 7 and hemoglobin of 14. Chemistries unremarkable normal creatinine and gap. Troponin normal. EKG normal sinus rhythm rate of 93 with no acute change from prior EKG from November 2019. Chest x-ray normal cardiac silhouette and mediastinum. Dextroscoliosis. There is a calcification of the proximal left humerus which has been seen on a prior x-ray and commented on by radiology. Emergency Department Course and Treatment: Patient has multiple symptoms. She has a normal exam. Have a low suspicion for this being cardiac however she will be put through a cardiac work-up. I do not think with pancreatitis. Could be but I am not convinced it is esophagitis or gastritis. Treatment Plan: Repeat exam patient is doing well at 10:50 AM. She is comfortable being discharged to home. Exam unchanged. Patient's vital signs are stable and afebrile. Disposition: discharge Impression: Palpitations and atypical chest discomfort History of anxiety This note was generated with [employer] software. It may contain incorrect words, spelling, and punctuation that were not noted in review of the chart prior to signing ED Disposition - Plan for ED Patient: Referrals: Mateo Jimenez MD [Primary Care Provider] -
[2020-02-19 10:15] LABS: Absolute Lymphocyte Count 2.54 X10^3/uL (0.83-4.51); Absolute Neutrophil Count 4.7 X10^3/uL (2.0-7.7); Basophil# 0.03 X10^3/uL; Basophil% 0.4 % (0-1); Eosinophil# 0.17 X10^3/uL; Eosinophils% 2.2 % (0-5); Hemoglobin 14.3 g/dL (12.0-15.0); Lymphocyte # 2.54 X10^3/ul (4.0); Lymphocyte % 32.2 % (19-41); Mean Corp Hgb Conc 32.5 g/dL (32-36); Mean Corpuscular Hgb 31.2 pg (27.0-32.0); Mean Corpuscular Volume 96.1 fL (81-99); Monocyte# 0.46 X10^3/uL; Monocyte% 5.8 % (0-10); NRBC Flagged by Analyzer 0 % (0-5); Neutrophil # 4.67 X10^3/uL (2.7-7.7); Neutrophil % 59.1 % (47-70); Platelet Count 280 K/mm3 (150-450); RBC Distribution Width CV 12.1 % (11.6-14.6); RBC Distribution Width SD 42.8 fl (35.1-43.9); Red Blood Count 4.58 M/mm3 (4.2-5.4); White Blood Count 7.9 K/mm3 (4.4-11.0)
[2020-02-19 10:32] LABS: Anion Gap 4 (5-15); BUN 12 mg/dL (7-18); BUN/Creat Ratio 14.1 RATIO (10-20); Calcium,Total 9.6 mg/dL (8.5-10.1); Chloride 108 mmol/L (98-107); Creatinine, Serum 0.85 mg/dL (0.55-1.02); EST Glomerular Filtration Rate 75 mL/min (>60); Est Glom Filt Rate - Afr Amer 90 mL/min (>60); Estimated Creatinine Clearance 61.93 ml/min; Glucose 102 mg/dL (74-106); Potassium 3.5 mmol/L (3.5-5.1); Sodium Level 139 mmol/L (136-145)
--- NOTE | 2020-02-19 10:53 | ED.DEP ---
ED Disposition - Plan for ED Patient: Disposition: Home or Assisted Living Instructions: ED Chest Pain Atypical Unkn Cause Referrals: Mateo Jimenez MD [Primary Care Provider] - 5-7 Days Additional Instructions: Your chest x-ray, EKG and labs or all very good. Your exam is normal. I do not have a specific cause for what happened. It may or may not be anxiety related. Return if any further problems. Follow-up your primary care physician if not improving.
[2020-02-19 11:00] VITALS: BP 144/87; PULSE 72; RESP 17; O2SAT 100
== END 2020-02-19 11:00 | disposition home or self-care (01) ==
PROVIDERS: Emergency Provider Emergency Medicine; PCP Family Medicine
DX: R07.89 Other chest pain (principal); R00.2 Palpitations; F41.9 Anxiety disorder, unspecified; E78.00 Pure hypercholesterolemia, unspecified; Z79.899 Other long term (current) drug therapy; Z72.0 Tobacco use
CPT/HCPCS: 71045; 80048; 84484; 85025; 93005; 99285; A4216

== ENCOUNTER → 2020-04-03 13:54 | Outpatient (CLI) | payer MEDICAID, SELFPAY | PROVIDERS: PCP Family Medicine; Visit Provider Nurse Practitioner Family | DX: U07.1 COVID-19 (principal) | CPT/HCPCS: 87635; U0003 ==

== ENCOUNTER → 2020-05-03 08:28 | Outpatient (CLI) | payer MEDICAID, SELFPAY ==
[2020-05-03 10:20] LABS: Absolute Lymphocyte Count 1.84 X10^3/uL (0.83-4.51); Absolute Neutrophil Count 3.6 X10^3/uL (2.0-7.7); Basophil# 0.03 X10^3/uL; Basophil% 0.5 % (0-1); Eosinophil# 0.14 X10^3/uL; Eosinophils% 2.3 % (0-5); Hematocrit 41.8 % (37-47); Hemoglobin 13.7 g/dL (12.0-15.0); Lymphocyte # 1.84 X10^3/ul (4.0); Lymphocyte % 30.5 % (19-41); Mean Corp Hgb Conc 32.8 g/dL (32-36); Mean Corpuscular Hgb 30.7 pg (27.0-32.0); Mean Corpuscular Volume 93.7 fL (81-99); Monocyte# 0.39 X10^3/uL; Monocyte% 6.5 % (0-10); NRBC Flagged by Analyzer 0 % (0-5); Neutrophil # 3.63 X10^3/uL (2.7-7.7); Platelet Count 289 K/mm3 (150-450); RBC Distribution Width CV 12.2 % (11.6-14.6); RBC Distribution Width SD 42.1 fl (35.1-43.9); Red Blood Count 4.46 M/mm3 (4.2-5.4)
[2020-05-03 10:42] LABS: ALB/GLOB Ratio 1.2 RATIO (0.9-2.4); AST(SGOT) 11 U/L (15-37); Alanine Aminotransfer ALT/SGPT 30 U/L (13-56); Albumin, Serum 3.8 g/dL (3.2-5.0); Alkaline Phosphatase 69 U/L (45-117); Anion Gap 6 (5-15); BUN 11 mg/dL (7-18); BUN/Creat Ratio 12.8 RATIO (10-20); Calcium,Total 9.2 mg/dL (8.5-10.1); Chloride 110 mmol/L (98-107); Cholesterol 265 mg/dL (200); Creatinine, Serum 0.86 mg/dL (0.55-1.02); EST Glomerular Filtration Rate 74 mL/min (>60); Est Glom Filt Rate - Afr Amer 90 mL/min (>60); Globulin 3.2 g/dL (2.2-4.2); Glucose 95 mg/dL (74-106); High Density Lipoprotein 56 mg/dL; Potassium 3.8 mmol/L (3.5-5.1); Sodium Level 142 mmol/L (136-145); Triglycerides 230 mg/dL; Very Low Density Lipoprotein 46 mg/dL (5-40)
== END ==
PROVIDERS: PCP Family Medicine; Referring Provider Family Medicine; Visit Provider Family Medicine
DX: E78.5 Hyperlipidemia, unspecified (principal); Z72.0 Tobacco use
CPT/HCPCS: 36415; 80053; 80061; 85025

== ENCOUNTER → 2020-11-15 09:58 | Outpatient (CLI) | payer MEDICAID, SELFPAY ==
[2020-11-15 12:08] LABS: Absolute Neutrophil Count 5.1 X10^3/uL (2.0-7.7); Basophil# 0.04 X10^3/uL; Basophil% 0.5 % (0-1); Eosinophil# 0.21 X10^3/uL; Eosinophils% 2.7 % (0-5); Hematocrit 43.2 % (37-47); Hemoglobin 14.2 g/dL (12.0-15.0); Lymphocyte % 26.6 % (19-41); Mean Corp Hgb Conc 32.9 g/dL (32-36); Mean Corpuscular Volume 94.3 fL (81-99); Mean Platelet Vol. 10.2 fl (6.2-12.0); Monocyte# 0.46 X10^3/uL; Monocyte% 5.8 % (0-10); NRBC Flagged by Analyzer 0 % (0-5); Neutrophil # 5.07 X10^3/uL (2.7-7.7); Neutrophil % 64.3 % (47-70); Platelet Count 300 K/mm3 (150-450); RBC Distribution Width CV 11.9 % (11.6-14.6); RBC Distribution Width SD 41.1 fl (35.1-43.9); Red Blood Count 4.58 M/mm3 (4.2-5.4); White Blood Count 7.9 K/mm3 (4.4-11.0)
[2020-11-15 12:51] LABS: ALB/GLOB Ratio 1.3 RATIO (0.9-2.4); AST(SGOT) 14 U/L (15-37); Alanine Aminotransfer ALT/SGPT 27 U/L (13-56); Albumin, Serum 4.1 g/dL (3.2-5.0); Alkaline Phosphatase 64 U/L (45-117); Anion Gap 5 (5-15); BUN 8 mg/dL (7-18); BUN/Creat Ratio 13.4 RATIO (10-20); Calcium,Total 9.2 mg/dL (8.5-10.1); Chloride 105 mmol/L (98-107); Cholesterol 268 mg/dL (200); EST Glomerular Filtration Rate 112 mL/min (>60); Est Glom Filt Rate - Afr Amer 136 mL/min (>60); Globulin 3.1 g/dL (2.2-4.2); Glucose 84 mg/dL (74-106); High Density Lipoprotein 50 mg/dL; Potassium 4.1 mmol/L (3.5-5.1); Protein, Total 7.2 g/dL (6.4-8.2); Sodium Level 139 mmol/L (136-145); Triglycerides 232 mg/dL; Very Low Density Lipoprotein 46 mg/dL (5-40)
== END ==
PROVIDERS: PCP Family Medicine; Referring Provider Family Medicine; Visit Provider Family Medicine
DX: E78.5 Hyperlipidemia, unspecified (principal); Z72.0 Tobacco use
CPT/HCPCS: 36415; 80053; 80061; 85025

== ENCOUNTER → 2021-02-09 | Outpatient (CLI) | payer MEDICAID, SELFPAY | END | disposition home or self-care (01) | PROVIDERS: PCP Family Medicine; Visit Provider Family Medicine | DX: B34.9 Viral infection, unspecified (principal) | CPT/HCPCS: 87635; U0005; U0003 ==

== ENCOUNTER 2021-05-07 17:47 | Outpatient (CLI) | payer MEDICAID, SELFPAY | END 2021-05-07 23:59 | disposition short-term general hospital (02) | PROVIDERS: PCP Family Medicine; Visit Provider Family Medicine | DX: B34.9 Viral infection, unspecified (principal) | CPT/HCPCS: 87635; U0003; U0005 ==

== ENCOUNTER 2021-07-03 09:13 | Outpatient (CLI) | payer BC, MEDICAID, SELFPAY ==
[2021-07-03 10:09] LABS: Absolute Lymphocyte Count 2.39 X10^3/uL (0.83-4.51); Absolute Neutrophil Count 4.5 X10^3/uL (2.0-7.7); Basophil# 0.03 X10^3/uL; Basophil% 0.4 % (0-1); Eosinophil# 0.13 X10^3/uL; Eosinophils% 1.7 % (0-5); Hemoglobin 12.9 g/dL (12.0-15.0); Lymphocyte # 2.39 X10^3/ul (0.83-4.51); Lymphocyte % 31.9 % (19-41); Mean Corp Hgb Conc 33.9 g/dL (32-36); Mean Corpuscular Hgb 32.1 pg (27.0-32.0); Mean Corpuscular Volume 94.5 fL (81-99); Mean Platelet Vol. 9.7 fl (6.2-12.0); Monocyte# 0.47 X10^3/uL; Monocyte% 6.3 % (0-10); NRBC Flagged by Analyzer 0 % (0-5); Neutrophil # 4.45 X10^3/uL (2.7-7.7); Neutrophil % 59.3 % (47-70); Platelet Count 224 K/mm3 (150-450); RBC Distribution Width SD 41.8 fl (35.1-43.9); Red Blood Count 4.02 M/mm3 (4.2-5.4); White Blood Count 7.5 K/mm3 (4.4-11.0)
[2021-07-03 10:41] LABS: ALB/GLOB Ratio 1.3 RATIO (0.9-2.4); AST(SGOT) 23 U/L (15-37); Alanine Aminotransfer ALT/SGPT 37 U/L (13-56); Albumin, Serum 3.7 g/dL (3.2-5.0); Alkaline Phosphatase 58 U/L (45-117); Anion Gap 2 (5-15); BUN 17 mg/dL (7-18); BUN/Creat Ratio 23.5 RATIO (10-20); Calcium,Total 9.2 mg/dL (8.5-10.1); Chloride 109 mmol/L (98-107); Cholesterol 174 mg/dL (200); Creatinine, Serum 0.72 mg/dL (0.55-1.02); EST Glomerular Filtration Rate 90 mL/min (>60); Est Glom Filt Rate - Afr Amer 109 mL/min (>60); Globulin 2.9 g/dL (2.2-4.2); Glucose 84 mg/dL (74-106); High Density Lipoprotein 56 mg/dL; Protein, Total 6.6 g/dL (6.4-8.2); Sodium Level 140 mmol/L (136-145); Thyroid Stim Hormone (TSH) 1.22 uIU/mL (0.358-3.74); Triglycerides 245 mg/dL; Very Low Density Lipoprotein 49 mg/dL (5-40)
== END 2021-07-03 23:59 | disposition home or self-care (01) ==
LOC: MFPLAB 09:15
PROVIDERS: PCP Family Medicine; Referring Provider Family Medicine; Visit Provider Family Medicine
DX: E78.5 Hyperlipidemia, unspecified (principal); F17.210 Nicotine dependence, cigarettes, uncomplicated; F41.9 Anxiety disorder, unspecified
CPT/HCPCS: 36415; 80053; 80061; 84443; 85025

== ENCOUNTER 2021-09-05 07:52 | Outpatient (RCR) | payer BC, MEDICAID, SELFPAY ==
--- NOTE | 2021-09-05 09:02 | HP.PTEVAL_ITS ---
Patient's Visit Information RICCI GARCIA is a 51 year old F referred to Physical Therapy by Dr. Sabrina Bloom MD with a diagnosis of LBP. Date of Evaluation: 09/05/21 Physical Therapist: Eyad Gonzalez, PT, ATC - Visit Plan Frequency: 2-3x /Week Duration: 4-6 Weeks Plan: REIL, postural education, core stab ex's, LE stretching and strengthening, and HEP - Subjective Pt reports she has a chronic Hx of LBP. Pt reports this episode has been existent for one month. 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 Pt reports forward bending and lifting groceries off the floor result in pain. Pt reports her pain is bad in the morning, but usually feels better as the day goes on until she goes to work and has to lift groceries again. Pt reports if she sits for a long period of time, her feet will fall asleep on her. Pt reports No recent Dx tests at this time. Pt reports sleep difficulty secondary to pain. Pt reports she has had to miss work recently a couple days due to her pain. 0/10 pain at rest, 8/10 pain at worst (throughout the day at work) - Pain LBP Pain Intensity (Out of 10): 0 Pain Intensity Range: 8 - Objective Neuro: B LE sensation is WNL to light touch. B patellar reflex= 2/3. MMT: B Knee ext= 4-/5, all other B LE MMT 4+/5 throughout. ROM: Pt is moderately limited with L/S extension. All other movements are WNL. Gait: No significant deviations this date. Repeated movements: RFIS 10x3 increased pain. JAK 10x2 increased pain. REIL decreased pain - Balance/Special Test Scores Oswestry Low Back Score: 21 - Goals Goal 1:: Decrease LBP x 50% to aid with sleep Goal Time Frame: 4-6 Weeks Goal 2:: Increase L/S ext ROM x 1 grade to aid with decreasing pain Goal Time Frame: 4-6 Weeks Goal 3:: Pt will be I with HEP Goal Time Frame: 4-6 Weeks - Rehabilitation Potential Physical Therapy Diagnosis: Pt has LBP, decreased L/S ROM, and limited work tolerance secondary to L/S disc derangement Rehabilitation Potential: Good - Anticipated Interventions Patient/Client Instruction: Educate patient on: Condition, Plan of Care For the Purpose of:: To improve self management Therapeutic Exercise to Include: Strength training, Endurance training, Body mechanics, Postural training, Flexibilty training, Dynamic Lumbar Stabilization, Bryan Exercises For the Purpose of:: To decrease pain, To increase ROM, To improve muscle performance and motor function Cryotherapy (ice pack, ice massage): Yes For the Purpose of:: To decrease pain Thank you for the opportunity to evaluate your patient. For Medicare and Medicare HMO plans, please review the plan of care and approve it. It will need to be FAXED BACK to us at [phone] for Medicare purposes. For Medicare only, by signing this I certify the plan of care. Please let me know if there are questions or concerns regarding this plan of care. Physician Signature: Date:
--- NOTE | 2021-10-17 11:58 | HP.PT.NRP ---
RICCI GARCIA was seen in my office for initial evaluation on 09/05/21. The following Plan of Care was established for this patient: Initial Frequency: 2-3x /Week Initial Duration: 4-6 Weeks Patient/Client Instruction: Educate patient on: Condition, Plan of Care For the Purpose of:: To improve self management Therapeutic Exercise to Include: Strength training, Endurance training, Body mechanics, Postural training, Flexibilty training, Dynamic Lumbar Stabilization, Bryan Exercises For the Purpose of:: To decrease pain, To increase ROM, To improve muscle performance and motor function Cryotherapy (ice pack, ice massage): Yes For the Purpose of:: To decrease pain This patient was last seen in our office . Pertinent comments regarding their Physical therapy will appear below: Pt was evaluated on 09/05/21 for LBP. Pt has not returned through todays date and will be discontinued at this time. At this point I will be discontinuing this patient from physical therapy. I would be happy to see this patient again in the future if found appropriate by the physician. Thank you! Eyad Gonzalez, PT, ATC Balance/Gait/Functional tests - Balance/Special Test Scores Oswestry Low Back Score: 21
== END 2021-09-05 19:00 | disposition home or self-care (01) ==
LOC: PT 07:52
PROVIDERS: PCP Family Medicine; Referring Provider Family Medicine; Visit Provider Family Medicine
DX: S39.012D Strain of muscle, fascia and tendon of lower back, subsequent encounter (principal); X58.XXXD Exposure to other specified factors, subsequent encounter
CPT/HCPCS: 97110; 97161

== ENCOUNTER → 2022-04-03 | Outpatient (CLI) | payer MEDICAID, SELFPAY ==
[2022-04-03 12:26] LABS: Bacteria 0 SEEN /hpf (None Seen); Mucous, Urine 0 SEEN /hpf (<or=2+)
[2022-04-03 12:38] LABS: Color, Urine Yellow (Yellow); Glucose, Dipstick Normal (Normal); Ketone-Dipstick Negative (Negative); Leukocyte Esterase-Dipstick 25 /ul (Negative); Nitrite-Dipstick Negative (Negative); Occult Blood-Urine 50 /ul (Negative); Protein-Dipstick Negative (Negative); Specific Gravity, Urine 1.005 (1.002-1.030); Urine Bilirubin Dipstick Negative (Negative); Urine Clarity Clear (Clear); Urine Urobilinogen Normal (Normal)
[2022-04-03 12:54] LABS: Red Blood Cells-Urine 0 SEEN /hpf (0-5); Squamous Epithelial Cells - UA 0-5 SEEN /hpf (5-10); White Blood Cells 0-5 SEEN /hpf (0-5)
== END | disposition home or self-care (01) ==
LOC: LABSPEC 11:59
PROVIDERS: PCP Family Medicine; Visit Provider Physician Assistant
DX: R30.0 Dysuria (principal)
CPT/HCPCS: 81001; 87086